=== PATIENT | female | born 1960 | race Caucasian/White ===

== ENCOUNTER → 2017-08-25 | Outpatient (CLI) | payer BC ==
[2016-11-26 11:13] VITALS: BP 123/112
--- NOTE | 2017-08-25 11:46 | MRI ---
MRI SPINE LUMBAR WITHOUT CONTRAST CLINICAL HISTORY: 57-year-old female with low back pain and bilateral radicular symptoms. COMPARISON: None. Technique: Multiplanar, multisequence MRI images of the lumbar spine were obtained without the admin istration of contrast. FINDINGS: The most caudad, fully-formed intervertebral disc will be labeled L5-S1 for the purpose of this dictation. There is normal lumbar lordosis. Subtle degenerative anterolisthesis L4 on L5. There is preservation of vertebral body and disc space height. Vertebral marrow and intervertebral disc sig nal are normal. Cord signal is normal. The conus medullaris is normal in signal characteristics and m orphology and terminates at the L2 level. T11-T12: No central canal or neural foraminal stenosis. T12-L1: No central canal or neural foraminal stenosis. L1-L2: Symmetric disc bulge with moderate facet hypertrophy without central canal or neural foraminal stenosis. L2-L3: Large symmetric disc bulge with mild facet hypertrophy and thickened flavum without central ca nal or neural foraminal stenosis L3-L4: Large symmetric disc bulge with moderate facet hypertrophy with thickened flavum. No central c anal or neural foraminal stenosis. L4-L5: Large symmetric disc bulge with severe facet hypertrophy with fluid within the facet joints an d subcentimeter subchondral cysts on the left. Central canal assumes a triangular configuration secon steve to degenerative change with AP diameter measuring 9.7 mm. Ejgt-[id number] bilateral neural fora jaime stenosis with engagement of the ventral dorsal aspects of the exiting L4 nerve roots bilaterall y with mild flattening. L5-S1: Large symmetric disc bulge with moderate facet hypertrophy and thickened ligamentum flavum. No central canal or neural foraminal stenosis. Paraspinous soft tissues are unremarkable. IMPRESSION: 1. Multilevel disc degeneration and spondyloarthropathy, most severe at L4-L5 with engagement of the exiting L4 nerve roots bilaterally. 2. See level by level descriptions above. Reported By:
== END ==
LOC: RAD 09:13
PROVIDERS: ATTEND Nurse Practitioner
DX: M54.5 Low back pain (principal); M54.16 Radiculopathy, lumbar region
CPT/HCPCS: 72148

== ENCOUNTER → 2018-03-13 | Outpatient (CLI) | payer BC ==
[2016-11-26 11:13] VITALS: BP 123/112
== END ==
LOC: RAD 09:46
PROVIDERS: ATTEND Internal Medicine
DX: Z12.31 Encounter for screening mammogram for malignant neoplasm of breast (principal)
CPT/HCPCS: 77067

== ENCOUNTER 2019-03-15 09:23 | Observation (INO) ==
--- NOTE | 2019-03-15 09:55 | DR.SOBA ---
HPI Time Seen Time Seen by Provider: 03/15/19 09:48 Primary Care Physician Primary Care Physician: NATALIA GARCIA HPI Comment HPI Comment: Patient reports that she had a transfusion for osteoporosis on yesterday and now she has generalized bone pain. The pain is sharp 8/10. She denies nausea or vomiting. Medication transfused is zoledronic acid. She admits to Dyspnea but denies rash, hives, itching swelling or blister formation. She denies wheezing but admits to chest tightness. Complaints Chief Complaint Doctors Comments: Bone pain Chief Complaint:: PT C/O BACK PAIN, RT RIB PAIN AND SOB. PT STATES SHE HAD AN INFUSION FOR HER OSTEOPOROSIS YESTERDAY IN THE HOSPITAL IN [facility]. PT STATES SHE IS HAVING SHARP PAINS IN HER BACK AND HAVING PRESSURE TYPE FEELING IN HER CHEST. Source History Provided: Patient Mode of Arrival Mode of Arrival: Ambulatory Timing Onset of Chief Complaint: 03/15/19 PMH PMH Past Medical History: Yes Past Medical History: COPD and Hypertension Past Medical History Comment: OSTEOPEROSIS Past Surgical History: Yes Surgical History: Hysterectomy Family History History of Family Medical Conditions: Yes Family Medical History: Diabetes Mellitus, Cancer, Coronary Artery Disease and Hypertension Social History Does any household member use tobacco: No Alcohol Use: Heavy Do you use any recreational Drugs:: No Lives With: Alone Lives Where: Home infectious screening In the last 2 months have you had wt loss of >10#?: NO Have you had fever, night sweats or hemotysis?: No Have you traveled outside the country in the last 6 months?: No Isolation: Standard ROS Review of Systems Constitutional: Weakness Eyes: No Symptoms Reported ENTM: No Symptoms Reported Respiratoy: No Symptoms Reported Cardiovascular: No Symptoms Reported Gastrointestinal/Abdominal: No Symptoms Reported Neurological: No Symptoms Reported Musculoskeletal: See HPI Integumentary: No Symptoms Reported Hematologic/Lymphatic: No Symptoms Reported Endocrine: No Symptoms Reported All Other Systems: Reviewed and Negative PE Vital Signs Vitals: Temperature 101.1 F Pulse Rate [Left Radial] 101 Pulse Rate 102 Respiratory Rate 17 Blood Pressure [Right Arm] 134/81 Blood Pressure [Left Arm] 110/69 Blood Pressure 110/69 O2 Sat by Pulse Oximetry 97 General Limitations: No Limitations and Physical Limitation (secondary to bone pain) General Appearance: Alert and In No Apparent Distress Head Head Exam: Normal Inspection, Atraumatic and Normocephalic Eyes Eye exam: Normal Appearance, PERRL and EOMI ENT ENT Exam: Normal Exam, Normal Oropharynx and Normal External Ear Exam Neck Neck Exam: Normal Inspection and Full ROM Chest Chest Inspection: Normal Inspection and Symmetric Chest Wall Rise Respiratory Respiratory Exam: Normal Lung Sounds Bilat Respiratory Exam: Bilateral: Clear to Auscultation Cardiovascular Cardiovascular Exam: Regular Rate and Normal Rhythm Abdominal Exam Abdominal Exam: Normal Inspection, Normal Bowel Sounds and Soft Extremities Extremities Exam: Normal Inspection and Full ROM Back Back Exam: Normal Inspection Neurologic Neurological Exam: Alert, Oriented X3 and CN II-XII Intact Psychiatric Psychiatric Exam: Normal Affect and Normal Mood Skin Skin Exam: Warm, Dry and Intact ROR Labs Reviewed Laboratory Results Reviewed?: Yes Other Results Comments: Chest: COPD without abnormality XRAY XRAY Interpreted by: Radiologist
--- NOTE | 2019-03-15 10:10 | RAD ---
HISTORY: Back and right rib pain and shortness of breath. Patient states she had an infusion for osteoporosis yesterday in the hospital in [place]. Patient states she is having sharp pains in her back and having pressure type feeling in her chest. Study: Single-view chest Comparison: 11/26/2016. Findings: Trachea is midline. Heart size is normal. There is hyperinflation of the lungs with stable increased interstitial markings bilaterally. Findings are compatible with COPD. No acute osseous changes are seen. IMPRESSION: COPD without acute abnormality. Reported By:
[2019-03-15 10:22] LABS: BASOPHILS % (AUTO) 0.2 % (0.2-1.0); EOSINOPHILS # (AUTO) 0.1 x10^3/uL (0.0-0.2); EOSINOPHILS % (AUTO) 0.8 % (0.9-2.9); HEMOGLOBIN 12.4 g/dL (12.0-16.0); LYMPHOCYTES # (AUTO) 0.4 X10^3/uL (1.3-2.9); LYMPHOCYTES % (AUTO) 4.1 % (21.0-51.0); MEAN CORPUSCULAR HEMOGLOBIN 30.9 pg (27.0-34.0); MEAN CORPUSCULAR HGB CONC 33.5 g/dL (33.0-35.0); MEAN CORPUSCULAR VOLUME 92.3 fL (80.0-100.0); MEAN PLATELET VOLUME 7.3 fL (7.4-11.0); MONOCYTES # (AUTO) 0.3 x10^3/uL (0.3-0.8); MONOCYTES % (AUTO) 3.2 % (0.0-13.0); NEUTROPHILS # (AUTO) 9.3 x10^3/uL (2.2-4.8); NEUTROPHILS % (AUTO) 91.7 % (42.0-75.0); PLATELET COUNT 250 X10^3/uL (150.0-450.0); RED BLOOD COUNT 4.01 X10^6/uL (3.5-5.4); WHITE BLOOD COUNT 10.1 X10^3/uL (3.6-10.0)
[2019-03-15 10:37] LABS: BLOOD UREA NITROGEN 11 mg/dL (7-18); CALCIUM 8.9 mg/dL (8.5-10.1); CARBON DIOXIDE 30.4 mmol/L (21-32); CHLORIDE 102 mmol/L (98-107); CREATININE 0.72 mg/dL (0.55-1.02); SODIUM 141 mmol/L (136-145); TROPONIN I < 0.02 ng/mL (0-1.5); eGFR NON BLACK RACES > 60 (>60)
[2019-03-15 10:41] LABS: ALANINE AMINOTRANSFERASE 37 Units/L (12-78); ALBUMIN 3.6 g/dL (3.4-5.0); ALKALINE PHOSPHATASE 70 Units/L (46-116); ASPARTATE AMINO TRANSFERASE 16 Units/L (15-37); CKMB % 2.3 % (<4); CREATINE KINASE 44 Units/L (26-192); CREATINE KINASE MB < 1.0 ng/mL (0-4.0); MAGNESIUM 1.9 mg/dL (1.7-2.9); TOTAL PROTEIN 6.9 g/dL (6.4-8.2)
[2019-03-15] MEDS ORDERED: TYLENOL 325 MG TAB PO ONE (10:50)
[2019-03-15] MEDS ORDERED: MORPHINE SULFATE INJ 4 MG IVP ONE (11:01)
[2019-03-15 11:02] LABS: BAND NEUTROPHILS % 3 % (0-10)
[2019-03-15] MEDS ORDERED: MORPHINE SULFATE INJ 4 MG ONE ×2 (11:04→16:38)
[2019-03-15 11:05] LABS: PLATELET MORPHOLOGY COMMENT NORMAL (NORMAL)
[2019-03-15 12:34] LABS: APPEARANCE,URINE CLEAR (CLEAR); BILIRUBIN,URINE NEGATIVE (NEGATIVE); BLOOD/HEMOGLOBIN,URINE NEGATIVE (NEGATIVE); COLOR,URINE YELLOW (YELLOW); GLUCOSE, URINE NEGATIVE (NEGATIVE); KETONES,URINE NEGATIVE (NEGATIVE); LEUKOCYTE ESTERASE ,URINE NEGATIVE (NEGATIVE); NITRITES,URINE NEGATIVE (NEGATIVE); PROTEIN,URINE NEGATIVE (NEGATIVE); UROBILINOGEN,URINE NORMAL (NORMAL)
--- NOTE | 2019-03-15 13:07 | DR.SOBA ---
HPI Time Seen Time Seen by Provider: 03/15/19 09:48 Primary Care Physician Primary Care Physician: NATALIA GARCIA Complaints Chief Complaint:: PT C/O BACK PAIN, RT RIB PAIN AND SOB. PT STATES SHE HAD AN INFUSION FOR HER OSTEOPOROSIS YESTERDAY IN THE HOSPITAL IN [facility]. PT STATES SHE IS HAVING SHARP PAINS IN HER BACK AND HAVING PRESSURE TYPE FEELING IN HER CHEST. Source History Provided: Patient Mode of Arrival Mode of Arrival: Ambulatory Timing Onset of Chief Complaint: 03/15/19 PMH PMH Past Medical History: Yes Past Medical History: COPD and Hypertension Past Medical History Comment: OSTEOPEROSIS Past Surgical History: Yes Surgical History: Hysterectomy Family History History of Family Medical Conditions: Yes Family Medical History: Diabetes Mellitus, Cancer, Coronary Artery Disease and Hypertension Social History Does any household member use tobacco: No Alcohol Use: Heavy Do you use any recreational Drugs:: No Lives With: Alone Lives Where: Home infectious screening In the last 2 months have you had wt loss of >10#?: NO Have you had fever, night sweats or hemotysis?: No Have you traveled outside the country in the last 6 months?: No Isolation: Standard ROS Review of Systems Constitutional: No Symptoms Reported Eyes: No Symptoms Reported ENTM: No Symptoms Reported Respiratoy: No Symptoms Reported Gastrointestinal/Abdominal: No Symptoms Reported Genitourinary: No Symptoms Reported Neurological: No Symptoms Reported Musculoskeletal: See HPI and Back Pain Integumentary: No Symptoms Reported Endocrine: No Symptoms Reported Psychiatric: No Symptoms Reported All Other Systems: Reviewed and Negative PE Vital Signs Vitals: Temperature 97.9 F Pulse Rate [Left Radial] 82 Pulse Rate 71 Respiratory Rate 16 Blood Pressure [Right Arm] 134/81 Blood Pressure [Left Arm] 123/72 Blood Pressure 110/69 O2 Sat by Pulse Oximetry 95 General Limitations: No Limitations General Appearance: Alert and In No Apparent Distress Head Head Exam: Normal Inspection, Atraumatic and Normocephalic Eyes Eye exam: Normal Appearance and PERRL ENT ENT Exam: Normal Exam and Normal Oropharynx Neck Neck Exam: Normal Inspection and Full ROM Respiratory Respiratory Exam: Normal Lung Sounds Bilat and Accessory Muscle Use Respiratory Exam: Bilateral: Clear to Auscultation Cardiovascular Cardiovascular Exam: Regular Rate and Normal Rhythm Abdominal Exam Abdominal Exam: Normal Inspection, Normal Bowel Sounds and Soft Extremities Extremities Exam: Normal Inspection and Full ROM Back Back Exam: Tenderness (lower back) Neurologic Neurological Exam: Alert and Oriented X3 Psychiatric Psychiatric Exam: Normal Affect and Normal Mood COURSE Consultation Called: 13:30 Consultation Comments: Dr. Jonnie Bello authorized admission ROR Labs Reviewed Laboratory Results Reviewed?: Yes Result Diagrams: 03/15/19 10:00 03/15/19 10:00 Laboratory: WBC 10.1 X10^3/uL (3.6-10.0) H 03/15/19 10:00 RBC 4.01 X10^6/uL (3.5-5.4) 03/15/19 10:00 Hgb 12.4 g/dL (12.0-16.0) 03/15/19 10:00 Hct 37.0 % (36.0-47.0) 03/15/19 10:00 MCV 92.3 fL (80.0-100.0) 03/15/19 10:00 MCH 30.9 pg (27.0-34.0) 03/15/19 10:00 MCHC 33.5 g/dL (33.0-35.0) 03/15/19 10:00 RDW 13.0 % (11.6-16.5) 03/15/19 10:00 Plt Count 250 X10^3/uL (150.0-450.0) 03/15/19 10:00 Plt Count Comment Adequate (ADEQUATE) 03/15/19 10:00 MPV 7.3 fL (7.4-11.0) L 03/15/19 10:00 Neut % (Auto) 91.7 % (42.0-75.0) H 03/15/19 10:00 Lymph % (Auto) 4.1 % (21.0-51.0) L 03/15/19 10:00 [place] % (Auto) 3.2 % (0.0-13.0) 03/15/19 10:00 Eos % (Auto) 0.8 % (0.9-2.9) L 03/15/19 10:00 Baso % (Auto) 0.2 % (0.2-1.0) 03/15/19 10:00 Neut # (Auto) 9.3 x10^3/uL (2.2-4.8) H 03/15/19 10:00 Lymph # (Auto) 0.4 X10^3/uL (1.3-2.9) L 03/15/19 10:00 [place] # (Auto) 0.3 x10^3/uL (0.3-0.8) 03/15/19 10:00 Eos # (Auto) 0.1 x10^3/uL (0.0-0.2) 03/15/19 10:00 Baso # (Auto) 0.0 X10^3/uL (0.0-0.1) 03/15/19 10:00 Absolute Nucleated RBC 0.0 /100WBC 03/15/19 10:00 Total Counted 100 03/15/19 10:00 Neutrophils % (Manual) 88 % (39-76) H 03/15/19 10:00 Band Neutrophils % 3 % (0-10) 03/15/19 10:00 Lymphocytes % (Manual) 8 % (13-43) L 03/15/19 10:00 Monocytes % (Manual) 1 % (4-9) L 03/15/19 10:00 Plt Morphology Comment Normal (NORMAL) 03/15/19 10:00 RBC Morphology Normal (NORMAL) 03/15/19 10:00 INR Target Range - 03/15/19 10:00 INR 0.97 (0.8-1.3) 03/15/19 10:00 APTT 24.2 SECONDS (22.9-36.5) 03/15/19 10:00 PTT Comment - 03/15/19 10:00 D-Dimer 259 ng/mL (0-400) 03/15/19 10:00 Sodium 141 mmol/L (136-145) 03/15/19 10:00 Corrected Sodium TNP 03/15/19 10:00 Potassium 4.2 mmol/L (3.5-5.1) 03/15/19 10:00 Chloride 102 mmol/L (98-107) 03/15/19 10:00 Carbon Dioxide 30.4 mmol/L (21-32) 03/15/19 10:00 BUN 11 mg/dL (7-18) 03/15/19 10:00 Creatinine 0.72 mg/dL (0.55-1.02) 03/15/19 10:00 Est GFR (MDRD) Af Amer > 60 (>60) 03/15/19 10:00 Est GFR (MDRD) Non-Af > 60 (>60) 03/15/19 10:00 Glucose 108 mg/dL (65-99) H 03/15/19 10:00 Calcium 8.9 mg/dL (8.5-10.1) 03/15/19 10:00 Corrected Calcium TNP 03/15/19 10:00 Magnesium 1.9 mg/dL (1.7-2.9) 03/15/19 10:00 Total Bilirubin 0.30 mg/dL (0.2-1.0) 03/15/19 10:00 AST 16 Units/L (15-37) 03/15/19 10:00 ALT 37 Units/L (12-78) 03/15/19 10:00 Alkaline Phosphatase 70 Units/L (46-116) 03/15/19 10:00 Creatine Kinase 44 Units/L (26-192) 03/15/19 10:00 CK-MB (CK-2) < 1.0 ng/mL (0-4.0) 03/15/19 10:00 CK/CKMB % Calc 2.3 % (<4) 03/15/19 10:00 Troponin I < 0.02 ng/mL (0-1.5) 03/15/19 10:00 Total Protein 6.9 g/dL (6.4-8.2) 03/15/19 10:00 Albumin 3.6 g/dL (3.4-5.0) 03/15/19 10:00 Globulin 3.3 g/dL (2.5-4.5) 03/15/19 10:00 Albumin/Globulin Ratio 1.1 Ratio (1.1-2.1) 03/15/19 10:00 Specimen Type Catherized urine 03/15/19 18:04 Urine Color Yellow (YELLOW) 03/15/19 18:04 Urine Appearance Clear (CLEAR) 03/15/19 18:04 Urine pH 7.0 (5.0 - 8.0) 03/15/19 18:04 Ur Specific [place] 1.015 (1.000-1.030) 03/15/19 18:04 Urine Protein Negative (NEGATIVE) 03/15/19 18:04 Urine Glucose (UA) Negative (NEGATIVE) 03/15/19 18:04 Urine Ketones 1+ (NEGATIVE) 03/15/19 18:04 Urine Occult Blood 1+ (NEGATIVE) 03/15/19 18:04 Urine Nitrite Negative (NEGATIVE) 03/15/19 18:04 Urine Bilirubin Negative (NEGATIVE) 03/15/19 18:04 Urine Urobilinogen Normal (NORMAL) 03/15/19 18:04 Ur Leukocyte Esterase Negative (NEGATIVE) 03/15/19 18:04 Urine RBC 0-2 /HPF (NONE SEEN) 03/15/19 18:04 Urine WBC 0-2 /HPF (NONE SEEN) 03/15/19 18:04 Ur Squamous Epith Cells Rare /HPF (NEGATIVE) 03/15/19 18:04 Urine Bacteria Negative /HPF (NEGATIVE) 03/15/19 18:04 Ur Culture Indicated? No/not indicated 03/15/19 18:04 Other Results Comments: Chest: COPD without acute abnormality XRAY XRAY Interpreted by: Radiologist ADDITIONAL NOTES Additional Notes Additional Notes: Patient admitted for generalized pain. Osteoporesis
--- NOTE | 2019-03-15 14:31 | CT ---
HISTORY: Mid back pain Study: CT thoracic spine without contrast Comparison: None Technique: Axial noncontrast images with coronal and sagittal reformats. Dose reduction procedures were used with mA/kv adjusted for body size. Findings: The bones are osteopenic. The alignment is normal. The vertebral bodies are of average height. Diffuse anterior spondylosis is present in the mid thoracic spine. The disc heights are preserved. The pedicles, spinous processes, and posterior elements are intact as are the visualized posterior ribs. The neural foramina are patent. The joints appear within normal limits. CT is not adequate for the evaluation of thoracic disc disease and if thoracic disc disease is a consideration MRI would be required for further evaluation. IMPRESSION: No acute abnormality identified Osteopenia Diffuse anterior spondylosis midthoracic spine Reported By:
--- NOTE | 2019-03-15 14:37 | CT ---
HISTORY: Low back pain Study: CT lumbar spine without contrast Comparison: None Technique: Axial noncontrast images with coronal and sagittal reformats. Dose reduction procedures were used with mA/kv adjusted for body size. Findings: The bones are osteopenic. The alignment is normal with the exception of minimal anterolisthesis L4 on L5. The vertebral bodies are of average height. No compression fractures are identified. The pedicles, spinous processes, and posterior elements are intact as are the visualized portions of the sacrum and the SI joints. The disc levels are evaluated as follows: L1-2 level: No evidence for compressive disc disease. The neural foramina are patent. The joints are normal. L2-3 level: No evidence for compressive disc disease. The neural foramina are patent. The joints are normal. L3-4 level: Concentric disc bulging effaces the thecal sac and contributes along with mild pedicular shortening to lateral recess narrowing bilaterally. Mild facet arthropathy is present bilaterally. L4-5 level: Broad-based disc protrusion contributes along with pedicular shortening, ligamentous hypertrophy, and severe facet arthropathy to a severe canal stenosis with marked lateral recess and foraminal narrowing bilaterally left worse than right. L5-S1 level: Broad-based disc protrusion effaces the thecal sac and contributes along with pedicular shortening and bilateral facet arthropathy to significant lateral recess and foraminal narrowing bilaterally worse on the right than the left. IMPRESSION: As above Reported By:
[2019-03-15] MEDS ORDERED: MORPHINE SULFATE INJ 4 MG IVP PRN ×2 (15:33→21:18)
[2019-03-15 16:10] VITALS: BMI 27.5
[2019-03-15] MEDS ORDERED: ZOFRAN INJ 4 MG VIAL IVP PRN ×2 (16:28→17:47)
[2019-03-15] MEDS ORDERED: MOTRIN TAB 600 MG PO PRN (16:29)
[2019-03-15] MEDS ORDERED: ZOFRAN INJ 4 MG VIAL ONE (16:38)
[2019-03-15] MEDS ORDERED: MOTRIN TAB 600 MG PO ONE (16:38)
[2019-03-15] MEDS ORDERED: SALINE 3% 15 ML NEB TX NEB ONE (16:48)
[2019-03-15] MEDS ORDERED: MORPHINE SULFATE INJ 2 MG INJ IVP PRN (17:46)
[2019-03-15] MEDS ORDERED: DUONEB 0.5 MG/3 MG NEB PRN (17:52)
[2019-03-15] MEDS: NS 1000 ML 1,000 ML IV SCH (18:24)
[2019-03-15] MEDS: PROTONIX TAB 40 MG PO SCH (18:24)
[2019-03-15 18:57] LABS: BILIRUBIN,URINE NEGATIVE (NEGATIVE); BLOOD/HEMOGLOBIN,URINE 1+ (NEGATIVE); GLUCOSE, URINE NEGATIVE (NEGATIVE); KETONES,URINE 1+ (NEGATIVE); LEUKOCYTE ESTERASE ,URINE NEGATIVE (NEGATIVE); NITRITES,URINE NEGATIVE (NEGATIVE); PROTEIN,URINE NEGATIVE (NEGATIVE); UROBILINOGEN,URINE NORMAL (NORMAL)
[2019-03-15 19:17] LABS: APPEARANCE,URINE CLEAR (CLEAR); BACTERIA,URINE NEGATIVE /HPF (NEGATIVE); COLOR,URINE YELLOW (YELLOW); RBC,URINE 0-2 /HPF (NONE SEEN); SQUAMOUS EPITHELIAL CELL,UR RARE /HPF (NEGATIVE)
[2019-03-15] MEDS: PULMICORT NEB TX 0.5 MG NEB SCH (20:28)
[2019-03-15] MEDS: DUONEB 0.5 MG/3 MG NEB SCH (20:28)
[2019-03-16] MEDS: MOTRIN TAB 600 MG PO PRN ×3 (02:28→20:16)
[2019-03-16 06:01] LABS: BASOPHILS % (AUTO) 0.7 % (0.2-1.0); EOSINOPHILS # (AUTO) 0.1 x10^3/uL (0.0-0.2); EOSINOPHILS % (AUTO) 2.9 % (0.9-2.9); HEMATOCRIT 30.8 % (36.0-47.0); HEMOGLOBIN 10.5 g/dL (12.0-16.0); LYMPHOCYTES # (AUTO) 0.6 X10^3/uL (1.3-2.9); LYMPHOCYTES % (AUTO) 13.7 % (21.0-51.0); MEAN CORPUSCULAR HEMOGLOBIN 31.7 pg (27.0-34.0); MEAN CORPUSCULAR HGB CONC 34.1 g/dL (33.0-35.0); MEAN PLATELET VOLUME 7.3 fL (7.4-11.0); MONOCYTES # (AUTO) 0.3 x10^3/uL (0.3-0.8); NEUTROPHILS # (AUTO) 3.2 x10^3/uL (2.2-4.8); NEUTROPHILS % (AUTO) 74.7 % (42.0-75.0); PLATELET COUNT 179 X10^3/uL (150.0-450.0); RED BLOOD COUNT 3.31 X10^6/uL (3.5-5.4); RED CELL DISTRIBUTION WIDTH 13.1 % (11.6-16.5); WHITE BLOOD COUNT 4.3 X10^3/uL (3.6-10.0)
[2019-03-16 06:21] LABS: ALANINE AMINOTRANSFERASE 32 Units/L (12-78); ALBUMIN 2.9 g/dL (3.4-5.0); ALKALINE PHOSPHATASE 57 Units/L (46-116); ASPARTATE AMINO TRANSFERASE 18 Units/L (15-37); BLOOD UREA NITROGEN 9 mg/dL (7-18); CALCIUM 7.7 mg/dL (8.5-10.1); CARBON DIOXIDE 29.3 mmol/L (21-32); CHLORIDE 103 mmol/L (98-107); COR CA(FOR HYPOALB) 8.6 mg/dL (8.5-10.1); CREATININE 0.56 mg/dL (0.55-1.02); SODIUM 139 mmol/L (136-145); TOTAL PROTEIN 5.9 g/dL (6.4-8.2); eGFR NON BLACK RACES > 60 (>60)
--- NOTE | 2019-03-16 06:24 | RAD ---
AP chest Indication: Chest pain. Comparison: 03/15/2019 Findings: The trachea is midline. Heart size is normal. The lungs are mildly hyperexpanded without focal airspace opacity. No pleural effusion or pneumothorax. No acute osseous abnormality. Impression: COPD without acute cardiopulmonary abnormality. Reported By:
[2019-03-16] MEDS: NS 1000 ML 1,000 ML IV SCH ×2 (07:32→17:22)
[2019-03-16] MEDS ORDERED: PATIENT'S HOME MEDICATION (Fluticasone-Umeclidin-Vilanter [Trelegy Ellipta] 1 INH) IN SCH (08:30)
[2019-03-16] MEDS: PROTONIX TAB 40 MG PO SCH (08:42)
--- NOTE | 2019-03-16 08:59 | DR.H&P ---
H&P - History & Physical for Day of: H&P Date: 03/15/19 - Chief Complaint Chief Complaint: COUGH, SOB, BACK PAIN, RIB PAIN - History of Present Illness History of Present Illness: IS A 58 YEAR OLD PATIENT OF OURS WHO PRESENTED TO THE ER WITH COMPLAINTS OF BACK PAIN, RIB PAIN, AND SHORTNESS OF BREATH. SHE REPORTS HAVING AN INFUSION OF ZOLEDRONIC ACID FOR HER OSTEOPOROSIS YESTERDAY IN [place]. SHE STATES THAT SHE IS HAVING SHARP PAIN IN THE BACK AND PRESSURE IN THE CHEST TODAY. SHE DOES REPORT A COUGH, BUT DENIES NAUSEA OR VOMITING. ON ARRIVAL, VITALS WERE 101.0-102-22-98%-110/69. LABS WERE OBTAINED. ABNORMAL LAB VALUES INCLUDE THE FOLLOWING: WBC 10.1, GLUCOSE 108. URINALYSIS UNREMARKABLE. BLOOD AND SPUTUM CULTURES OBTAINED. EKG OBTAINED AND REVEALED: SINUS RHYTHM WITH HR 96. CHEST XRAY OBTAINED AND REVEALED: COPD WITHOUT ACUTE ABNORMALITY. LUMBAR SPINE CT OBTAINED AND REVEALED: L3-4 level: Concentric disc bulging effaces the thecal sac and contributes along with mild pedicular shortening to lateral recess narrowing bilaterally. Mild facet arthropathy is present bilaterally. L4-5 level: Broad-based disc protrusion contributes along with pedicular shortening, ligamentous hypertrophy, and severe facet arthropathy to a severe canal stenosis with marked lateral recess and foraminal narrowing bilaterally left worse than right. L5-S1 level: Broad-based disc protrusion effaces the thecal sac and contributes along with pedicular shortening and bilateral facet arthropathy to significant lateral recess and foraminal narrowing bilaterally worse on the right than the left. THORACIC SPINE CT REVEALED: No acute abnormality identified. Osteopenia. Diffuse anterior spondylosis midthoracic spine. SHE WAS GIVEN MORPHINE 4MG IV X 2 DOSES, ZOFRAN 4MG IV X 1 DOSE, AND MOTRIN 60MG PO X 1 DOSE IN THE ER. SHE WAS ADMITTED FOR FURTHER EVALUATION AND TREATMENT OF INTRACTABLE PAIN AND COPD EXACERBATION WITH ACUTE BRONCHITIS. SHE WAS STARTED ON RESPIRATORY TX, SUPPLEMENTAL OXYGEN, NORMAL SALINE AT 75ML/HR, MORPHINE 4MG IV Q6H PRN, AND ZOFRAN 4MG IV Q8H PRN. WE PLAN TO FOLLOW UP WITH AM LABS AND CHEST XRAY AND CONTINUE TO MONITOR. - Past Medical History Past Medical History: Hypertension, COPD - Past Surgical History Surgical History: Hysterectomy - Family History Family Medical History: Diabetes Mellitus, Cancer, Coronary Artery Disease, Hypertension - Social History Does patient currently use any type of tobacco product: No Have you used tobacco products in the last 12 months: No Type of Tobacco Use: None Does any household member use tobacco: No Alcohol Use: Heavy Drug Use: None - Medications Home Medications: No Known Allergies [NKA] Allergy (Verified 03/15/19 09:32) CONTINUE taking the following medications azithromycin 250 mg PO DAILY 03/15/19 [History] [id number] [Trelegy Ellipta] 1 inh INHALATION QDAY 03/15/19 [History] levothyroxine 50 mcg PO DAILY 03/15/19 [History] montelukast 10 mg PO DAILY 03/15/19 [History] sertraline 100 mg PO DAILY 03/15/19 [History] simvastatin 20 mg PO HS 03/15/19 [History] - Review of Systems Constitutional: Fever, Weakness Eyes: No Symptoms Reported ENT: No Symptoms Reported Respiratory: See HPI, Cough, Shortness of Breath Cardiovascular: No Symptoms Reported Gastrointestinal: No Symptoms Reported Genitourinary: No Symptoms Reported Musculoskeletal: See HPI, Back Pain Skin: No Symptoms Reported Neurological: Weakness - Physical Exam Vital Signs: Temperature 97.5 F Pulse Rate [Left Radial] 70 Pulse Rate 71 Respiratory Rate 22 Blood Pressure [Right Arm] 134/81 Blood Pressure [Left Arm] 99/64 Blood Pressure 110/69 O2 Sat by Pulse Oximetry 98 Oriented: Normal Eyes: Normal Ear: Normal Nose: Normal Throat: Normal Respiratory: Diminished Throughout Cardiovascular: Tachycardia. negative: S3, S4, Murmur : Normal Auscultation: Bowel Sounds: Normal Palpation: Normal Tenderness: Normal Skin: Normal Musculoskeletal: Back:Thoracic, Back:Lumbar, Tender Psychiatric: Normal Mood Description: Calm Affect: Normal Speech Pattern: Clear - Assessment/Plan (1) COPD with acute bronchitis Status: Acute Plan: IV ANTIBIOTICS, RESPIRATORY TX, SUPPLEMENTAL OXYGEN, CONTINUE TO MONTIOR (2) Intractable back pain Status: Acute Plan: MORPHINE 4MG IV Q6H PRN PAIN, CONTINUE TO MONITOR - Allergies Allergies/Adverse Reactions: Allergies Allergy/AdvReac Type Severity Reaction Status Date / Time No Known Allergies [NKA] Allergy Verified 03/15/19 09:32
[2019-03-16] MEDS ORDERED: PHARMACY CONSULT - DOSE _____ XX SCH (09:00)
[2019-03-16] MEDS: PULMICORT NEB TX 0.5 MG NEB SCH ×2 (09:27→21:05)
[2019-03-16] MEDS: DUONEB 0.5 MG/3 MG NEB SCH ×2 (09:27→21:05)
[2019-03-16] MEDS ORDERED: SINGULAIR TAB 10 MG ONE (10:00)
[2019-03-16] MEDS ORDERED: SYNTHROID 100 mcg TAB ONE (10:00)
[2019-03-16] MEDS ORDERED: ZOLOFT ONE (10:00)
[2019-03-16] MEDS ORDERED: ASPIRIN EC 81 MG PO ONE (10:00)
[2019-03-16] MEDS ORDERED: ROCEPHIN VIAL 1 GRAM ONE (10:01)
[2019-03-16] MEDS: ROCEPHIN VIAL 1 GRAM IVP SCH (10:13)
[2019-03-16] MEDS: ASPIRIN 81 MG CHEWTAB PO SCH (10:13)
[2019-03-16] MEDS: SINGULAIR TAB 10 MG PO SCH (10:15)
[2019-03-16] MEDS: SYNTHROID 50 mcg TAB PO SCH (10:15)
[2019-03-16] MEDS: ZOLOFT PO SCH (10:18)
[2019-03-16] MEDS ORDERED: ZOCOR TAB 20 MG PO SCH (21:00)
[2019-03-17] MEDS: NS 1000 ML 1,000 ML IV SCH ×2 (01:33→09:29)
[2019-03-17 05:27] LABS: EOSINOPHILS # (AUTO) 0.1 x10^3/uL (0.0-0.2); EOSINOPHILS % (AUTO) 3.9 % (0.9-2.9); HEMATOCRIT 28.8 % (36.0-47.0); HEMOGLOBIN 9.8 g/dL (12.0-16.0); LYMPHOCYTES # (AUTO) 1.1 X10^3/uL (1.3-2.9); LYMPHOCYTES % (AUTO) 30.7 % (21.0-51.0); MEAN CORPUSCULAR HEMOGLOBIN 31.8 pg (27.0-34.0); MEAN CORPUSCULAR HGB CONC 33.9 g/dL (33.0-35.0); MEAN CORPUSCULAR VOLUME 93.8 fL (80.0-100.0); MEAN PLATELET VOLUME 8.1 fL (7.4-11.0); MONOCYTES # (AUTO) 0.4 x10^3/uL (0.3-0.8); MONOCYTES % (AUTO) 10.8 % (0.0-13.0); NEUTROPHILS # (AUTO) 1.8 x10^3/uL (2.2-4.8); NEUTROPHILS % (AUTO) 53.6 % (42.0-75.0); PLATELET COUNT 179 X10^3/uL (150.0-450.0); RED BLOOD COUNT 3.07 X10^6/uL (3.5-5.4); RED CELL DISTRIBUTION WIDTH 13.1 % (11.6-16.5); WHITE BLOOD COUNT 3.4 X10^3/uL (3.6-10.0)
[2019-03-17 05:48] LABS: ALANINE AMINOTRANSFERASE 35 Units/L (12-78); ALBUMIN 2.6 g/dL (3.4-5.0); ALKALINE PHOSPHATASE 61 Units/L (46-116); ASPARTATE AMINO TRANSFERASE 20 Units/L (15-37); BLOOD UREA NITROGEN 8 mg/dL (7-18); CALCIUM 7.6 mg/dL (8.5-10.1); CHLORIDE 109 mmol/L (98-107); COR CA(FOR HYPOALB) 8.7 mg/dL (8.5-10.1); CREATININE 0.59 mg/dL (0.55-1.02); SODIUM 144 mmol/L (136-145); TOTAL PROTEIN 5.5 g/dL (6.4-8.2); eGFR NON BLACK RACES > 60 (>60)
[2019-03-17] MEDS: PULMICORT NEB TX 0.5 MG NEB SCH (09:02)
[2019-03-17] MEDS: DUONEB 0.5 MG/3 MG NEB SCH (09:02)
[2019-03-17] MEDS ORDERED: ZOLOFT ONE (09:11)
[2019-03-17 09:23] LABS: CREATINE KINASE 42 Units/L (26-192); CREATINE KINASE MB < 1.0 ng/mL (0-4.0); TROPONIN I < 0.02 ng/mL (0-1.5)
[2019-03-17] MEDS: ROCEPHIN VIAL 1 GRAM IVP SCH (09:28)
[2019-03-17] MEDS: ZOLOFT PO SCH (09:28)
[2019-03-17] MEDS: SYNTHROID 50 mcg TAB PO SCH (09:29)
[2019-03-17] MEDS: SINGULAIR TAB 10 MG PO SCH (09:29)
[2019-03-17] MEDS: ASPIRIN 81 MG CHEWTAB PO SCH (09:29)
[2019-03-17] MEDS: PROTONIX TAB 40 MG PO SCH (09:29)
[2019-03-17] MEDS: MOTRIN TAB 600 MG PO PRN (09:36)
[2019-03-17 10:11] LABS: CKMB % 2.4 % (<4)
[2019-03-17 10:43] VITALS: BP 144/67
--- NOTE | 2019-03-17 17:42 | PCM.PROG ---
Progress Note - Progress Note for Day of Date of Exam: 03/16/19 - Subjective Subjective: WAS ADMITTED FOR INTRACTABLE PAIN AND COPD WITH ACUTE EXACERBATION. WE SUSPECT THAT SOME SYMPTOMS COULD ALSO BE RELATED TO AN INFUSION OF ZOLENDRONIC ACID THAT SHE HAD TWO DAYS AGO FOR OSTOPOROSIS. TODAY, SHE IS ALERT AND ORIENTED, LYING IN BED ON MORNING ROUNDS. SHE CONTINUES WITH BACK PAIN AND SHORTNESS OF BREATH, BUT REPORTS SLIGHT IMPROVEMENT SINCE YESTERDAY. ON EXAMINATION, HEART IS REGULAR IN RATE AND RHYTHM. BILATERAL LUNGS ARE NOTED WITH DIMINISHED LUNG SOUNDS THROUGHOUT. ABDOMEN IS ROUND, SOFT, AND NON-TENDER WITH NORMAL BOWEL SOUNDS NOTED IN ALL QUADRANTS. HER VITALS THIS MORNING ARE 98.1-67-20-91%-118/66. LABS WERE OBTAINED. ABNORMAL LAB VALUES INCLUDE THE FOLLOWING: RBC 3.31, HGB 10.5, HCT 30.8, GLUCOSE 100, CALCIUM 7.7, TOTAL PROTEIN 5.9, ALBUMIN 2.9. BLOOD AND SPUTUM CULTURES PENDING. SHE IS CURRENTLY RECEIVING IV ANTIBIOTICS, RESPIRATORY TX, SUPPLEMENTAL OXYGEN, AND IV PAIN CONTROL. WE WILL CONTINUE WITH CURRENT PLAN OF CARE TODAY. OTHERWISE, WE PLAN TO FOLLOW UP WITH AM LABS AND CONTINUE TO MONITOR. - Past Medical Family Social History Past Med/Fam/Surg Hx: No changes since H&P Allergies: Allergies No Known Allergies [NKA] Allergy (Verified 03/15/19 09:32) - Review of Systems ROS: No change since H&P - Vital Signs and I&O's Vital Signs: Temperature 97.6 F Pulse Rate [Left Radial] 76 Pulse Rate 71 Respiratory Rate 18 Blood Pressure [Right Arm] 134/81 Blood Pressure [Left Arm] 144/67 Blood Pressure 110/69 O2 Sat by Pulse Oximetry 97 Intake and Output: Intake & Output 03/15/19 03/16/19 03/17/19 03/18/19 11:59 11:59 11:59 11:59 Intake Total 590 / 590 3480 / 3480 Output Total 1275 / 1275 2700 / 2700 Balance -685 / -685 780 / 780 - Physical Exam Oriented: Normal Eyes: Normal Ear: Normal Nose: Normal Throat: Normal Cardiovascular: Tachycardia. negative: S3, S4, Murmur : Normal Auscultation: Bowel Sounds: Normal Tenderness: Normal Skin: Normal Musculoskeletal: Back:Thoracic, Back:Lumbar, Tender Psychiatric: Normal Mood Description: Calm Affect: Normal Speech Pattern: Clear, Appropriate - Laboratory and Diagnostics Result Diagrams: 03/17/19 04:16 03/17/19 04:16 Labs: 03/15/19 10:10 Blood Blood Culture - Preliminary 03/15/19 10:00 Blood Blood Culture - Preliminary 03/16/19 00:20 Sputum - Expectorated Sputum Sputum Culture - Preliminary 03/16/19 00:20 Sputum - Expectorated Sputum - Final Laboratory WBC 3.4 X10^3/uL (3.6-10.0) L 03/17/19 04:16 RBC 3.07 X10^6/uL (3.5-5.4) L 03/17/19 04:16 Hgb 9.8 g/dL (12.0-16.0) L 03/17/19 04:16 Hct 28.8 % (36.0-47.0) L 03/17/19 04:16 MCV 93.8 fL (80.0-100.0) 03/17/19 04:16 MCH 31.8 pg (27.0-34.0) 03/17/19 04:16 MCHC 33.9 g/dL (33.0-35.0) 03/17/19 04:16 RDW 13.1 % (11.6-16.5) 03/17/19 04:16 Plt Count 179 X10^3/uL (150.0-450.0) 03/17/19 04:16 Plt Count Comment Adequate (ADEQUATE) 03/15/19 10:00 MPV 8.1 fL (7.4-11.0) 03/17/19 04:16 Neut % (Auto) 53.6 % (42.0-75.0) 03/17/19 04:16 Lymph % (Auto) 30.7 % (21.0-51.0) 03/17/19 04:16 [place] % (Auto) 10.8 % (0.0-13.0) 03/17/19 04:16 Eos % (Auto) 3.9 % (0.9-2.9) H 03/17/19 04:16 Baso % (Auto) 1.0 % (0.2-1.0) 03/17/19 04:16 Neut # (Auto) 1.8 x10^3/uL (2.2-4.8) L 03/17/19 04:16 Lymph # (Auto) 1.1 X10^3/uL (1.3-2.9) L 03/17/19 04:16 [place] # (Auto) 0.4 x10^3/uL (0.3-0.8) 03/17/19 04:16 Eos # (Auto) 0.1 x10^3/uL (0.0-0.2) 03/17/19 04:16 Baso # (Auto) 0.0 X10^3/uL (0.0-0.1) 03/17/19 04:16 Absolute Nucleated RBC 0.2 /100WBC 03/17/19 04:16 Total Counted 100 03/15/19 10:00 Neutrophils % (Manual) 88 % (39-76) H 03/15/19 10:00 Band Neutrophils % 3 % (0-10) 03/15/19 10:00 Lymphocytes % (Manual) 8 % (13-43) L 03/15/19 10:00 Monocytes % (Manual) 1 % (4-9) L 03/15/19 10:00 Plt Morphology Comment Normal (NORMAL) 03/15/19 10:00 RBC Morphology Normal (NORMAL) 03/15/19 10:00 INR Target Range - 03/15/19 10:00 INR 0.97 (0.8-1.3) 03/15/19 10:00 APTT 24.2 SECONDS (22.9-36.5) 03/15/19 10:00 PTT Comment - 03/15/19 10:00 D-Dimer 259 ng/mL (0-400) 03/15/19 10:00 Sodium 144 mmol/L (136-145) 03/17/19 04:16 Corrected Sodium TNP 03/17/19 04:16 Potassium 3.3 mmol/L (3.5-5.1) L 03/17/19 04:16 Chloride 109 mmol/L (98-107) H 03/17/19 04:16 Carbon Dioxide 30.0 mmol/L (21-32) 03/17/19 04:16 BUN 8 mg/dL (7-18) 03/17/19 04:16 Creatinine 0.59 mg/dL (0.55-1.02) 03/17/19 04:16 Est GFR (MDRD) Af Amer > 60 (>60) 03/17/19 04:16 Est GFR (MDRD) Non-Af > 60 (>60) 03/17/19 04:16 Glucose 105 mg/dL (65-99) H 03/17/19 04:16 Calcium 7.6 mg/dL (8.5-10.1) L 03/17/19 04:16 Corrected Calcium 8.7 mg/dL (8.5-10.1) 03/17/19 04:16 Magnesium 2.1 mg/dL (1.7-2.9) 03/17/19 04:16 Total Bilirubin 0.10 mg/dL (0.2-1.0) L 03/17/19 04:16 AST 20 Units/L (15-37) 03/17/19 04:16 ALT 35 Units/L (12-78) 03/17/19 04:16 Alkaline Phosphatase 61 Units/L (46-116) 03/17/19 04:16 Creatine Kinase 42 Units/L (26-192) 03/17/19 08:57 CK-MB (CK-2) < 1.0 ng/mL (0-4.0) 03/17/19 08:57 CK/CKMB % Calc 2.4 % (<4) 03/17/19 08:57 Troponin I < 0.02 ng/mL (0-1.5) 03/17/19 08:57 Total Protein 5.5 g/dL (6.4-8.2) L 03/17/19 04:16 Albumin 2.6 g/dL (3.4-5.0) L 03/17/19 04:16 Globulin 2.9 g/dL (2.5-4.5) 03/17/19 04:16 Albumin/Globulin Ratio 0.9 Ratio (1.1-2.1) L 03/17/19 04:16 Specimen Type Catherized urine 03/15/19 18:04 Urine Color Yellow (YELLOW) 03/15/19 18:04 Urine Appearance Clear (CLEAR) 03/15/19 18:04 Urine pH 7.0 (5.0 - 8.0) 03/15/19 18:04 Ur Specific [place] 1.015 (1.000-1.030) 03/15/19 18:04 Urine Protein Negative (NEGATIVE) 03/15/19 18:04 Urine Glucose (UA) Negative (NEGATIVE) 03/15/19 18:04 Urine Ketones 1+ (NEGATIVE) 03/15/19 18:04 Urine Occult Blood 1+ (NEGATIVE) 03/15/19 18:04 Urine Nitrite Negative (NEGATIVE) 03/15/19 18:04 Urine Bilirubin Negative (NEGATIVE) 03/15/19 18:04 Urine Urobilinogen Normal (NORMAL) 03/15/19 18:04 Ur Leukocyte Esterase Negative (NEGATIVE) 03/15/19 18:04 Urine RBC 0-2 /HPF (NONE SEEN) 03/15/19 18:04 Urine WBC 0-2 /HPF (NONE SEEN) 03/15/19 18:04 Ur Squamous Epith Cells Rare /HPF (NEGATIVE) 03/15/19 18:04 Urine Bacteria Negative /HPF (NEGATIVE) 03/15/19 18:04 Ur Culture Indicated? No/not indicated 03/15/19 18:04 - Plan (1) COPD with acute bronchitis Status: Acute Plan: IV ANTIBIOTICS, RESPIRATORY TX, SUPPLEMENTAL OXYGEN, CONTINUE TO MONTIOR (2) Intractable back pain Status: Acute Plan: MORPHINE 4MG IV Q6H PRN PAIN, CONTINUE TO MONITOR
== END 2019-03-17 11:52 | disposition home or self-care (01) ==
LOC: ER 09:23 → MED/SURG 15:30 → INTOOBSV 15:30 → MED/SURG 15:40
PROVIDERS: ADMIT Internal Medicine; ATTEND Internal Medicine
DX: M51.26 Other intervertebral disc displacement, lumbar region; M47.894 Other spondylosis, thoracic region; J20.8 Acute bronchitis due to other specified organisms; R94.31 Abnormal electrocardiogram [ECG] [EKG]; R07.81 Pleurodynia; J44.1 Chronic obstructive pulmonary disease with (acute) exacerbation; Z79.899 Other long term (current) drug therapy; I10 Essential (primary) hypertension; J44.0 Chronic obstructive pulmonary disease with (acute) lower respiratory infection; R06.02 Shortness of breath; R26.89 Other abnormalities of gait and mobility; M85.88 Other specified disorders of bone density and structure, other site
CPT/HCPCS: 36415; 51701; 51702; 71010; 71045; 72128; 72131; 80053; 81001; 81003; 82550; 82553; 83735; 84484; 85025; 85378; 85610; 85730; 87040; 87070; 87205; 93005; 94640; 94760; 96365; 96374; 97161; 99284; A4222; G0378; J0696; J2270; J2405; J7030; J7620; J7626

== ENCOUNTER 2021-10-27 10:21 | Observation (INO) ==
[2021-10-27 10:29] VITALS: BMI 27.3
[2021-10-27] MEDS ORDERED: LEVAQUIN PREMIX IV 500 MG 500 MG/100 ML BAG IV ONE ×2 (11:51→11:59)
[2021-10-27] MEDS ORDERED: NS 1,000 ML IV 1,000 ML IV STA (11:51)
--- NOTE | 2021-10-27 11:51 | DR.SOBA ---
HPI Time Seen Time Seen by Provider: 10/27/21 11:51 Primary Care Physician Primary Care Physician: Johnathan HPI Comment HPI Comment: PATIENT WITH A HISTORY OF COPD, DIAGNOSED WITH COVID YESTERDAY, COMPLAINS OF FEVER, CHILLS, PRODUCTIVE COUGH YELLOW SPUTUM, ARTHRALGIAS. HAS BILATERAL LOWER ANTERIOR CHEST PAINS, DYSPNEA. DENIES DIAPHORESIS AND PALPITAT IONS Complaints Chief Complaint Doctors Comments: FEVER, COUGH ACHES Chief Complaint:: Pt states she was diagnosed with covid yesterday. She was tested in the parking lot of her providers office, but not seen by provider. She c/o shortness of breath, bodyaches, fever, nausea and cough. COVID-19 Has patient experienced Coronavirus symptoms: Yes Coronavirus symptoms experienced: Fever and Coughing Reviewed Nurses Notes Reviewed: Yes Source History Provided: Patient Mode of Arrival Mode of Arrival: Ambulatory Timing Onset of Chief Complaint: 10/20/21 Context Onset:: At Rest PE Risk Factors:: None History of:: COPD Associated Signs and Symptoms Associated Signs and Symptoms: Fever, Cough and Chest Pain If Chest Pain Quality: Sharp and Stabbing If Cough Cough: Productive PMH PMH Past Medical History: Yes Past Medical History: COPD, Hypertension and Hypothyroidism Past Medical History Comment: osteoporosis Past Surgical History: Yes Surgical History: Hysterectomy Family History History of Family Medical Conditions: Yes Family Medical History: Diabetes Mellitus, Cancer, Coronary Artery Disease and Hypertension Social History Alcohol Use: None Do you use any recreational Drugs:: No Lives With: Family Lives Where: Home Infectious screening In the last 2 months have you had wt loss of >10#?: NO Have you had fever, night sweats or hemotysis?: No Have you traveled outside the country in the last 6 months?: No Isolation: Droplet ROS Review of Systems Constitutional: See HPI, Chills, Fever and Malaise Eyes: No Symptoms Reported ENTM: No Symptoms Reported Respiratoy: Productive Cough Cardiovascular: Chest Pain Gastrointestinal/Abdominal: No Symptoms Reported Genitourinary: No Symptoms Reported Neurological: No Symptoms Reported Musculoskeletal: No Symptoms Reported Integumentary: No Symptoms Reported Hematologic/Lymphatic: No Symptoms Reported Endocrine: No Symptoms Reported Psychiatric: No Symptoms Reported All Other Systems: Reviewed and Negative PE Vital Signs Vitals: Temperature 98.9 F Pulse Rate 83 Respiratory Rate 22 Blood Pressure [Right Arm] 134/81 Blood Pressure [Left Arm] 144/67 Blood Pressure 123/64 O2 Sat by Pulse Oximetry 96 General Limitations: No Limitations General Appearance: Alert and In No Apparent Distress Head Head Exam: Normal Inspection and Atraumatic Eyes Eye exam: Normal Appearance, PERRL and EOMI ENT ENT Exam: Normal Exam Neck Neck Exam: Normal Inspection and Full ROM Chest Chest Inspection: Normal Inspection, Symmetric Chest Wall Rise and Tenderness (BILAT LOWER RIBS) Respiratory Respiratory Exam: Normal Lung Sounds Bilat Respiratory Exam: Left: Decreased Breath Sounds and Lower: Decreased Breath Sounds Cardiovascular Cardiovascular Exam: Regular Rate and Normal Rhythm Abdominal Exam Abdominal Exam: Normal Inspection and Normal Bowel Sounds Extremities Extremities Exam: Normal Inspection and Full ROM Back Back Exam: Normal Inspection and Full ROM Neurologic Neurological Exam: Alert and Oriented X3 Psychiatric Psychiatric Exam: Normal Affect Skin Skin Exam: Warm and Dry MDM Differential Diagnosis Differential Diagnosis: COPD, Pneumonia, Pulmonary embolism and Other (COVID) COURSE Treatment Treatment: IV NORMAL SALINE 100ML/HR, AFTER BLOOD CULTURES LEVAQUIN 500MG IVPB, SOLUMEDROL 125MG IV, DUO AEROSOL TX, Consultation Call Returned: 16:00 Consultation Comments: FINDINGS DISCUSSED WITH DR DIAZ FOR OBSERVATION ROR Labs Reviewed Laboratory Results Reviewed?: Yes Result Diagrams: 10/27/21 12:05 10/27/21 12:05 Laboratory: WBC 5.5 X10^3/uL (3.6-10.0) 10/27/21 12:05 RBC 3.93 X10^6/uL (3.5-5.4) 10/27/21 12:05 Hgb 12.2 g/dL (12.0-16.0) 10/27/21 12:05 Hct 35.9 % (36.0-47.0) L 10/27/21 12:05 MCV 91.6 fL (80.0-100.0) 10/27/21 12:05 MCH 31.0 pg (27.0-34.0) 10/27/21 12:05 MCHC 33.9 g/dL (33.0-35.0) 10/27/21 12:05 RDW 13.2 % (11.6-16.5) 10/27/21 12:05 Plt Count 224 X10^3/uL (150.0-450.0) 10/27/21 12:05 MPV 7.8 fL (7.4-11.0) 10/27/21 12:05 Neut % (Auto) 67.8 % (42.0-75.0) 10/27/21 12:05 Lymph % (Auto) 16.7 % (21.0-51.0) L 10/27/21 12:05 [place] % (Auto) 12.2 % (0.0-13.0) 10/27/21 12:05 Eos % (Auto) 2.7 % (0.9-2.9) 10/27/21 12:05 Baso % (Auto) 0.6 % (0.2-1.0) 10/27/21 12:05 Neut # (Auto) 3.7 x10^3/uL (2.2-4.8) 10/27/21 12:05 Lymph # (Auto) 0.9 X10^3/uL (1.3-2.9) L 10/27/21 12:05 [place] # (Auto) 0.7 x10^3/uL (0.3-0.8) 10/27/21 12:05 Eos # (Auto) 0.2 x10^3/uL (0.0-0.2) 10/27/21 12:05 Baso # (Auto) 0.0 X10^3/uL (0.0-0.1) 10/27/21 12:05 Absolute Nucleated RBC 0.1 /100WBC 10/27/21 12:05 D-Dimer 1.31 ug/ml (0.0-0.57) H* 10/27/21 12:05 Sample Site Rra 10/27/21 11:59 ABG pH 7.460 (7.35-7.45) H 10/27/21 11:59 ABG pCO2 45.0 mmHg (35.0-45.0) 10/27/21 11:59 ABG pO2 113.0 mmHg (80.0-100.0) H 10/27/21 11:59 ABG HCO3 32.0 mmol/L (22-26) H* 10/27/21 11:59 ABG O2 Saturation 99.0 % (90-100) 10/27/21 11:59 ABG Base Excess 7.2 mmol/L (-2.0-2.0) H 10/27/21 11:59 Naveen Test Pos 10/27/21 11:59 A-a Gradient 87.0 mmHg 10/27/21 11:59 FiO2 36.0 10/27/21 11:59 Blood Gas Comments 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,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 10/27/21 11:59 Sodium 136 mmol/L (136-145) 10/27/21 12:05 Corrected Sodium TNP 10/27/21 12:05 Potassium 3.5 mmol/L (3.5-5.1) 10/27/21 12:05 Chloride 100 mmol/L (98-107) 10/27/21 12:05 Carbon Dioxide 31.6 mmol/L (21-32) 10/27/21 12:05 BUN 11 mg/dL (7-18) 10/27/21 12:05 Creatinine 0.68 mg/dL (0.55-1.02) 10/27/21 12:05 Est GFR (MDRD) Af Amer > 60 (>60) 10/27/21 12:05 Est GFR (MDRD) Non-Af > 60 (>60) 10/27/21 12:05 Glucose 99 mg/dL (65-99) 10/27/21 12:05 Calcium 9.4 mg/dL (8.5-10.1) 10/27/21 12:05 Corrected Calcium 10.0 mg/dL (8.5-10.1) 10/27/21 12:05 Magnesium 2.0 mg/dL (1.7-2.9) 10/27/21 12:05 Ferritin 209 ng/mL (8-252) 10/27/21 12:05 Total Bilirubin 0.20 mg/dL (0.2-1.0) 10/27/21 12:05 AST 19 Units/L (15-37) 10/27/21 12:05 ALT 46 Units/L (12-78) 10/27/21 12:05 Alkaline Phosphatase 70 Units/L (46-116) 10/27/21 12:05 Troponin I < 0.02 ng/mL (0-1.5) 10/27/21 12:05 C-Reactive Protein 86.00 mg/L (0-3.0) H 10/27/21 12:05 Total Protein 7.5 g/dL (6.4-8.2) 10/27/21 12:05 Albumin 3.3 g/dL (3.4-5.0) L 10/27/21 12:05 Globulin 4.2 g/dL (2.5-4.5) 10/27/21 12:05 Albumin/Globulin Ratio 0.8 Ratio (1.1-2.1) L 10/27/21 12:05 XRAY XRAY Interpreted by: Radiologist (CTA CHEST C/W NO EVIDENCE OF PULM EMBOLISM, NO INFILTRATES) X-ray Results: PORTABLE CHEST XRAY- PERIHILAR INTERSTITIAL OPACITIES EKG Rate: 81 [place]: Normal ST: Nonsp Opioid Opioid Risk Tool Total: 0 Total Score Risk Category: Low Risk Copyright: Viral JACQUES predicting aberrant behaviors Diagnosis Discharge Problem: COPD (chronic obstructive pulmonary disease), COVID, Acute dyspnea Instructions Forms: Precautions for COVID19 [facility] Social Distancing
[2021-10-27] MEDS ORDERED: NS 1,000 ML IV 1,000 ML ONE ×2 (11:59→23:33)
[2021-10-27 12:03] LABS: ABG BASE EXCESS 7.2 mmol/L (-2.0-2.0)
[2021-10-27 12:04] LABS: ABG ALLEN TEST POS
[2021-10-27] MEDS ORDERED: ASPIRIN 81 MG CHEWTAB PO STA (12:09)
[2021-10-27] MEDS ORDERED: NITROSTAT SL PRN (12:09)
[2021-10-27] MEDS ORDERED: DUONEB 0.5 MG/3 MG (3 mL) NEB ONE ×2 (12:11→12:37)
[2021-10-27] MEDS ORDERED: ASPIRIN 81 MG CHEWTAB ONE (12:31)
[2021-10-27 12:39] LABS: BASOPHILS % (AUTO) 0.6 % (0.2-1.0); EOSINOPHILS # (AUTO) 0.2 x10^3/uL (0.0-0.2); EOSINOPHILS % (AUTO) 2.7 % (0.9-2.9); HEMATOCRIT 35.9 % (36.0-47.0); HEMOGLOBIN 12.2 g/dL (12.0-16.0); LYMPHOCYTES # (AUTO) 0.9 X10^3/uL (1.3-2.9); LYMPHOCYTES % (AUTO) 16.7 % (21.0-51.0); MEAN CORPUSCULAR HGB CONC 33.9 g/dL (33.0-35.0); MEAN CORPUSCULAR VOLUME 91.6 fL (80.0-100.0); MEAN PLATELET VOLUME 7.8 fL (7.4-11.0); MONOCYTES # (AUTO) 0.7 x10^3/uL (0.3-0.8); MONOCYTES % (AUTO) 12.2 % (0.0-13.0); NEUTROPHILS # (AUTO) 3.7 x10^3/uL (2.2-4.8); NEUTROPHILS % (AUTO) 67.8 % (42.0-75.0); PLATELET COUNT 224 X10^3/uL (150.0-450.0); RED BLOOD COUNT 3.93 X10^6/uL (3.5-5.4); RED CELL DISTRIBUTION WIDTH 13.2 % (11.6-16.5); WHITE BLOOD COUNT 5.5 X10^3/uL (3.6-10.0)
[2021-10-27 12:55] LABS: ALANINE AMINOTRANSFERASE 46 Units/L (12-78); ALBUMIN 3.3 g/dL (3.4-5.0); ALKALINE PHOSPHATASE 70 Units/L (46-116); ASPARTATE AMINO TRANSFERASE 19 Units/L (15-37); BLOOD UREA NITROGEN 11 mg/dL (7-18); CALCIUM 9.4 mg/dL (8.5-10.1); CARBON DIOXIDE 31.6 mmol/L (21-32); CHLORIDE 100 mmol/L (98-107); CREATININE 0.68 mg/dL (0.55-1.02); SODIUM 136 mmol/L (136-145); TOTAL PROTEIN 7.5 g/dL (6.4-8.2); eGFR NON BLACK RACES > 60 (>60)
--- NOTE | 2021-10-27 12:58 | RAD ---
HISTORYPt states she was diagnosed with covid yesterday. She c/o shortness of breath, bodyaches, fever, nausea and cough. COPD, HTN, HYSTER[Cough]. [Dyspnea].[Single portable view] of the chest.Comparison: [None].Findings:The trachea is midline. The cardiac silhouette is unremarkable. Background changes of chronic bronchitis/COPD are also identified. There are increased [perihilar] interstitial opacities seen, suggesting [central bronchitis or a viral respiratory infection]. Please correlate medically and clinically. The remaining lungs [are otherwise clear without focal infiltrate or pleural effusion]. The bony thorax [is unremarkable].IMPRESSION:Chest findings suggesting a viral respiratory tract infection, as above.No lobar infiltrates or pleural effusion seen. Please correlate medically.Background changes of chronic bronchitis/COPD are also observedFollow-up noncontrast chest CT imaging may be beneficial.Electronically signed by: MEREDITH PRICE III (Oct 27, 2021 12:57:03)
[2021-10-27] MEDS ORDERED: TYLENOL 325 MG TAB PO STA (13:47)
--- NOTE | 2021-10-27 14:19 | CT ---
HISTORYdyspnea, elevated ddimer, COVID+STUDYCTA CHESTCOMPARISONChest radiograph from 10/27/2021.TECHNIQUECTA chest protocol with axial images from the thoracic inlet to upper abdomen with IV contrast. Sagittal and coronal reformats and MIP images were created. Automated exposure control was utilized.FINDINGSThe visualized thyroid gland appears benign. Mildly atherosclerotic normal caliber thoracic aorta. Pulmonary artery is normal in caliber centrally. No filling defect is identified to suggest pulmonary embolism. The heart is normal in size. No pericardial effusion. 9 mm right hilar lymph node short axis image 76 series 4. 1 cm short axis pretracheal lymph node image 55 series 4.Visualized upper abdomen has a benign appearance. No acute osseous abnormality. There is a tiny filling defect of the right lateral side wall of the trachea measuring 3 mm AP on image 34 series 5. Mainstem bronchi appear patent. There is moderate to severe COPD with scattered areas of fibrosis. No pleural effusion or pneumothorax.IMPRESSIONModerate to severe COPD.Negative for PE.3 mm filling defect of the right lateral side wall of the trachea. This may represent tracheal secretion. Consider short interval CT follow-up to document resolution.Likely reactive borderline mediastinal adenopathy.Electronically signed by: Indra Anderson (Oct 27, 2021 14:17:21)
[2021-10-27] MEDS ORDERED: TYLENOL 325 MG TAB PO ONE (15:03)
[2021-10-27] MEDS ORDERED: REMDESIVIR 200 MG in NS 250 ML IV 250 ML IV ONE (16:09)
[2021-10-27] MEDS ORDERED: REMDESIVIR IV ONE (16:15)
[2021-10-27] MEDS ORDERED: NS 250 ML IV 250 ML IV ONE (16:15)
[2021-10-27] MEDS: PULMICORT NEB TX 0.5 MG NEB SCH (21:50)
[2021-10-27] MEDS ORDERED: SOLU-Medrol 40 MG VIAL ONE (23:33)
[2021-10-27] MEDS: SOLU-Medrol 40 MG VIAL IVP SCH (23:40)
[2021-10-27] MEDS: NS 1,000 ML IV 1,000 ML IV SCH (23:40)
[2021-10-28] MEDS ORDERED: TYLENOL 325 MG TAB PO ONE ×2 (00:14→07:08)
[2021-10-28] MEDS: TYLENOL 325 MG TAB PO PRN ×3 (00:19→18:05)
[2021-10-28] MEDS: PROVENTIL NEB TX 0.083% 2.5MG/ 3ML NEB SCH ×4 (00:20→18:09)
[2021-10-28] MEDS: NS 1,000 ML IV 1,000 ML IV SCH (05:28)
[2021-10-28] MEDS ORDERED: SOLU-Medrol 40 MG VIAL ONE ×2 (05:42→13:57)
[2021-10-28] MEDS: SOLU-Medrol 40 MG VIAL IVP SCH ×3 (06:05→21:57)
[2021-10-28 06:33] LABS: BASOPHILS % (AUTO) 0.4 % (0.2-1.0); EOSINOPHILS % (AUTO) 0.3 % (0.9-2.9); HEMATOCRIT 31.7 % (36.0-47.0); HEMOGLOBIN 10.7 g/dL (12.0-16.0); LYMPHOCYTES # (AUTO) 0.4 X10^3/uL (1.3-2.9); LYMPHOCYTES % (AUTO) 9.4 % (21.0-51.0); MEAN CORPUSCULAR HEMOGLOBIN 30.9 pg (27.0-34.0); MEAN CORPUSCULAR HGB CONC 33.7 g/dL (33.0-35.0); MEAN CORPUSCULAR VOLUME 91.8 fL (80.0-100.0); MEAN PLATELET VOLUME 7.6 fL (7.4-11.0); MONOCYTES # (AUTO) 0.1 x10^3/uL (0.3-0.8); MONOCYTES % (AUTO) 3.5 % (0.0-13.0); NEUTROPHILS # (AUTO) 3.4 x10^3/uL (2.2-4.8); NEUTROPHILS % (AUTO) 86.4 % (42.0-75.0); PLATELET COUNT 209 X10^3/uL (150.0-450.0); RED BLOOD COUNT 3.45 X10^6/uL (3.5-5.4); RED CELL DISTRIBUTION WIDTH 13.2 % (11.6-16.5); WHITE BLOOD COUNT 3.9 X10^3/uL (3.6-10.0)
--- NOTE | 2021-10-28 07:15 | RAD ---
HISTORYCOPD, COVID-19STUDYChest AP [id number]/2022 chest x-ray and CTA chestFINDINGSHeart size is normal. Diana are normal. Diffuse emphysematous changes are present in markedly hyperinflated lungs. No acute alveolar infiltrates or pleural effusions are identified. Bony thorax is unremarkable.IMPRESSIONEmphysematous COPDNo acute infiltratesElectronically signed by: TROY ALVARENGA (Oct 28, 2021 07:14:31)
[2021-10-28 07:20] LABS: ALANINE AMINOTRANSFERASE 44 Units/L (12-78); ALBUMIN 2.9 g/dL (3.4-5.0); ALKALINE PHOSPHATASE 71 Units/L (46-116); ASPARTATE AMINO TRANSFERASE 24 Units/L (15-37); BLOOD UREA NITROGEN 10 mg/dL (7-18); CALCIUM 8.3 mg/dL (8.5-10.1); CHLORIDE 103 mmol/L (98-107); COR CA(FOR HYPOALB) 9.2 mg/dL (8.5-10.1); COR NA(FOR HYPERGLY) 141 mmol/L (136-145); CREATININE 0.58 mg/dL (0.55-1.02); SODIUM 139 mmol/L (136-145); TOTAL PROTEIN 6.9 g/dL (6.4-8.2); eGFR NON BLACK RACES > 60 (>60)
[2021-10-28] MEDS ORDERED: NS 250 ML IV 250 ML IV ONE (08:18)
[2021-10-28] MEDS ORDERED: REMDESIVIR IV ONE (08:18)
[2021-10-28] MEDS: REMDESIVIR 100 MG in NS 250 ML IV 250 ML IV SCH (08:25)
[2021-10-28] MEDS: PULMICORT NEB TX 0.5 MG NEB SCH ×2 (09:25→20:43)
[2021-10-28] MEDS ORDERED: ZOFRAN INJ 4 MG VIAL IVP PRN (11:40)
[2021-10-28] MEDS ORDERED: PHARMACY CONSULT - IVERMECTIN XX SCH (12:00)
--- NOTE | 2021-10-28 12:01 | DR.H&P ---
H&P - History & Physical for Day of: H&P Date: 10/27/21 - Chief Complaint Chief Complaint: SHORTNESS OF BREATH, FEVER, CHILLS, PRODUCTIVE COUGH, WEAKNESS, NAUSEA, AND GENERALIZED BODY PAIN. - History of Present Illness History of Present Illness: IS A 61 YEAR OLD PATIENT OF OURS. SHE PRESENTED TO THE ER WITH REPORTS OF INCREASING SHORTNESS OF BREATH, FEVER, CHILLS, PRODUCTIVE COUGH, WEAKNESS, NAUSEA, AND GENERALIZED BODY PAIN. SHE ADMITS TO TESTING POSITIVE FOR COVID-19 ON 10/26/21. SHE WAS PRESCRIBED AZITHROMYCIN 250MG PO DAILY AND AN ALBUTEROL INHALER BY HER SOURCING ENGINEER, WHICH SHE HAS BEEN TAKING SINCE 10/21/21. HER PMH INCLUDES: COPD, HTN, HYPOTHYROIDISM, OSTEOPOROSIS, AND HYSTERECTOMY. SHE USES OXYGEN AT HOME, USUALLY 3-3.5 LITERS/MINUTE. AUSCULTATION OF LUNG SIN REVEALED WHEEZING THROUGHOUT. ON ARRIVAL, HER VITALS WERE 98.9-88-22-93%-145/84. LABS WERE OBTAINED. ABNORMAL LAB VALUES INCLUDED THE FOLLOWING: HCT 35.9, D-DIMER 1.31, CRP 86.00, ALBUMIN 3.3. COVID-19 POSITIVE. A URINALYSIS WAS UNREMARKABLE. AN ABG WAS OBTAINED AND REVEALED: PH 7.460, PC02 45, P02 113, HC03 32.0, 02 SAT 99, BASE EXCESS 7.2, A-A GRADIENT 87, FI02 36. BLOOD AND SPUTUM CULTURES WERE SET UP. A CHEST XRAY WAS OBTAINED AND REVEALED: Chest findings suggesting a viral respiratory tract infection. No lobar infiltrates or pleural effusion seen. Please correlate medically. Background changes of chronic bronchitis/COPD are also observed. F ollow-up noncontrast chest CT imaging may be beneficial. A CHEST CTA WAS ALSO OBTAINED AND REVEALED: Moderate to severe COPD. Negative for PE. 3 mm filling defect of the right lateral side wall of the trachea. This may represent tracheal secretion. Likely reactive borderline mediastinal adenopathy. EKG REVEALED: SINUS RHYTHM WITH HR 81. IN THE ER, SHE WAS GIVEN A LEVAQUIN 500MG IV X 1, ECOTRIN 324MG PO X 1, AND REMDESIVIR 200MG IV X 1. SHE WAS ADMITTED TO THE HOSPITAL FOR FURTHER EVALUATION AND TREATMENT OF BRONCHITIS DUE TO COVID-19, COPD EXACERBATION. SHE WAS STARTED ON NORMAL SALINE AT KVO, REMDESIVIR 100MG IV DAILY, ASCORBIC ACID 1500MG IV Q6H, ALBUTEROL NEBS Q6H, PULMICORT NEBS BID, TESSALON PERLES TID PRN, FLUVOXAMINE 50MG PO BID, SOLU-MEDROL 80MG IV Q8H, IVERMECTIN, ZOFRAN 4MG IV Q4H PRN, AND ZINC SULFATE 220MG PO DAILY. OTHERWISE, WE PLAN TO FOLLOW UP WITH AM LABS AND CHEST XRAY AND CONTINUE TO MONITOR. TIME SPENT ON CLINICAL ASSESSMENT, REVIEWING LABS AND IMAGING, DECISION MAKING, AND DOCUMENTATION WAS GREATER THAN 75 MINUTES. - Past Medical History Past Medical History: Hypertension, Hypothyroidism, COPD - Past Surgical History Surgical History: Hysterectomy - Family History Family Medical History: Cancer - Social History Does patient currently use any type of tobacco product: No Have you used tobacco products in the last 12 months: No Type of Tobacco Use: None Alcohol Use: Occasionally Drug Use: None - Medications Home Medications: No Known Allergies [NKA] Allergy (Verified 03/15/19 09:32) CONTINUE taking the following medications albuterol sulfate 2 puff INHALATION Q6H PRN 10/27/21 [History] - Review of Systems Constitutional: Fever, Chills, Weakness, Malaise Eyes: No Symptoms Reported ENT: No Symptoms Reported Respiratory: See HPI, Cough, Shortness of Breath, SOB with Excertion, Sputum, Wheezing Cardiovascular: Chest Pain Gastrointestinal: No Symptoms Reported Genitourinary: No Symptoms Reported Musculoskeletal: No Symptoms Reported Skin: No Symptoms Reported Neurological: Weakness - Physical Exam Vital Signs: Temperature 98.2 F Pulse Rate 75 Respiratory Rate 20 Blood Pressure [Right Arm] 134/81 Blood Pressure [Left Arm] 144/67 Blood Pressure 179/89 O2 Sat by Pulse Oximetry 95 Oriented: Normal Eyes: Normal Ear: Normal Nose: Normal Throat: Normal Respiratory: Wheezes Throughout Cardiovascular: Normal : Normal Auscultation: Bowel Sounds: Normal Palpation: Normal Tenderness: Normal Skin: Normal Musculoskeletal: Normal Psychiatric: Normal Mood Description: Calm Affect: Normal Speech Pattern: Clear - Assessment/Plan (1) Bronchitis due to COVID-19 virus Status: Acute Plan: ADMIT, SUPPLEMENTAL OXYGEN, NORMAL SALINE AT KVO, REMDESIVIR 100MG IV DAILY, ASCORBIC ACID 1500MG IV Q6H, ALBUTEROL NEBS Q6H, PULMICORT NEBS BID, TESSALON PERLES TID PRN, FLUVOXAMINE 50MG PO BID, SOLU-MEDROL 80MG IV Q8H, IVERMECTIN, ZOFRAN 4MG IV Q4H PRN, AND ZINC SULFATE 220MG PO DAILY. (2) COPD exacerbation Status: Acute - Allergies Allergies/Adverse Reactions: Allergies Allergy/AdvReac Type Severity Reaction Status Date / Time No Known Allergies [NKA] Allergy Verified 03/15/19 09:32
[2021-10-28] MEDS ORDERED: PROVENTIL NEB TX 0.083% 2.5MG/ 3ML ONE (13:02)
[2021-10-28] MEDS ORDERED: FLUVOXAMINE MALEATE ONE (13:57)
[2021-10-28] MEDS ORDERED: NS 100 ML IV 100 ML ONE (13:57)
[2021-10-28] MEDS ORDERED: ZINC SULFATE ONE (13:57)
[2021-10-28] MEDS ORDERED: IVERMECTIN ONE (13:57)
[2021-10-28] MEDS ORDERED: ASCORBIC ACID INJ MULTI-DOSE VIAL IV ONE (13:58)
[2021-10-28] MEDS: FLUVOXAMINE MALEATE PO SCH ×2 (14:10→20:46)
[2021-10-28] MEDS: ASCORBIC ACID INJ MULTI-DOSE VIAL 1,500 MG in NS 50 ML IV 50 ML IV SCH ×3 (14:10→20:47)
[2021-10-28] MEDS: ZINC SULFATE PO SCH (14:10)
[2021-10-28] MEDS: IVERMECTIN PO SCH (14:11)
[2021-10-28] MEDS: TESSALON PERLES PO PRN (18:05)
[2021-10-28] MEDS ORDERED: KLOR-CON PO PRN (19:41)
[2021-10-28] MEDS ORDERED: MAGNESIUM SULFATE 1 GRAM/100 mL PREMIX 1 G/100 ML BAG IV PRN (19:41)
[2021-10-28] MEDS: SNACK - Diabetic Appropriate PO SCH (20:00)
[2021-10-28] MEDS: K-DUR TAB 20 MEQ PO PRN (20:46)
[2021-10-28] MEDS: NovoLIN R (or HumuLIN R) SUBCUT PRN (20:46)
[2021-10-28] MEDS ORDERED: COZAAR ONE (21:11)
[2021-10-28] MEDS: COZAAR PO SCH (21:57)
[2021-10-29] MEDS: NS 1,000 ML IV 1,000 ML IV SCH ×2 (00:28→23:34)
[2021-10-29] MEDS: PROVENTIL NEB TX 0.083% 2.5MG/ 3ML NEB SCH (00:34)
[2021-10-29] MEDS: ASCORBIC ACID INJ MULTI-DOSE VIAL 1,500 MG in NS 50 ML IV 50 ML IV SCH ×4 (02:03→21:16)
[2021-10-29 05:39] LABS: ABG BASE EXCESS 8.1 mmol/L (-2.0-2.0)
[2021-10-29 05:40] LABS: ABG HCO3 32.8 mmol/L (22-26)
[2021-10-29] MEDS: NovoLIN R (or HumuLIN R) SUBCUT PRN ×3 (05:47→16:57)
[2021-10-29] MEDS: SOLU-Medrol 40 MG VIAL IVP SCH ×3 (05:47→21:15)
[2021-10-29 05:48] LABS: BASOPHILS % (AUTO) 0.1 % (0.2-1.0); HEMATOCRIT 29.9 % (36.0-47.0); HEMOGLOBIN 10.4 g/dL (12.0-16.0); LYMPHOCYTES # (AUTO) 0.9 X10^3/uL (1.3-2.9); LYMPHOCYTES % (AUTO) 20.8 % (21.0-51.0); MEAN CORPUSCULAR HEMOGLOBIN 31.3 pg (27.0-34.0); MEAN CORPUSCULAR HGB CONC 34.6 g/dL (33.0-35.0); MEAN CORPUSCULAR VOLUME 90.4 fL (80.0-100.0); MEAN PLATELET VOLUME 7.7 fL (7.4-11.0); MONOCYTES # (AUTO) 0.5 x10^3/uL (0.3-0.8); MONOCYTES % (AUTO) 10.4 % (0.0-13.0); NEUTROPHILS % (AUTO) 68.7 % (42.0-75.0); PLATELET COUNT 246 X10^3/uL (150.0-450.0); RED BLOOD COUNT 3.31 X10^6/uL (3.5-5.4); RED CELL DISTRIBUTION WIDTH 13.1 % (11.6-16.5); WHITE BLOOD COUNT 4.4 X10^3/uL (3.6-10.0)
[2021-10-29 05:52] LABS: ALANINE AMINOTRANSFERASE 43 Units/L (12-78); ALBUMIN 2.8 g/dL (3.4-5.0); ALKALINE PHOSPHATASE 61 Units/L (46-116); ASPARTATE AMINO TRANSFERASE 21 Units/L (15-37); BLOOD UREA NITROGEN 15 mg/dL (7-18); CARBON DIOXIDE 32.3 mmol/L (21-32); CHLORIDE 106 mmol/L (98-107); COR NA(FOR HYPERGLY) 145 mmol/L (136-145); CREATININE 0.55 mg/dL (0.55-1.02); MAGNESIUM 2.1 mg/dL (1.7-2.9); SODIUM 143 mmol/L (136-145); TOTAL PROTEIN 6.5 g/dL (6.4-8.2); eGFR NON BLACK RACES > 60 (>60)
--- NOTE | 2021-10-29 05:58 | RAD ---
PROCEDURE: Chest X-ray 1 View .HISTORY: COVID+, COPD .TECHNIQUE: AP view .COMPARISON: 10/28/2021.TECHNICAL QUALITY: Satisfactory .FINDINGS:Unremarkable cardio mediastinal silhouette and normal central vascularity.Unchanged emphysema both lung levy with hyperlucency and hyper expansion. No consolidation, pleural fluid, or pneumothorax.IMPRESSION:Unchanged COPD with no other evidence of active disease.Electronically signed by: Lloyd Alva (Oct 29, 2021 05:57:03)
[2021-10-29] MEDS ORDERED: XOPENEX 1.25 MG/3 ML NEBULE NEB ONE (07:28)
[2021-10-29] MEDS: PULMICORT NEB TX 0.5 MG NEB SCH ×2 (08:45→20:54)
[2021-10-29] MEDS: IVERMECTIN PO SCH (10:00)
[2021-10-29] MEDS: ZINC SULFATE PO SCH (10:00)
[2021-10-29] MEDS: FLUVOXAMINE MALEATE PO SCH ×2 (10:00→21:16)
[2021-10-29] MEDS: REMDESIVIR 100 MG in NS 250 ML IV 250 ML IV SCH (10:00)
[2021-10-29] MEDS: LOVENOX INJ 30 MG SYR SC SCH ×2 (10:32→21:16)
[2021-10-29] MEDS: SINGULAIR TAB 10 MG PO SCH (10:33)
[2021-10-29] MEDS: SYNTHROID 25 mcg TAB PO SCH (10:33)
[2021-10-29] MEDS: ASPIRIN 81 MG CHEWTAB PO SCH (10:33)
[2021-10-29] MEDS: PROTONIX TAB 40 MG PO SCH (10:33)
[2021-10-29] MEDS: XOPENEX 1.25 MG/3 ML NEBULE NEB SCH ×2 (11:21→20:54)
[2021-10-29] MEDS: TESSALON PERLES PO PRN (11:30)
--- NOTE | 2021-10-29 11:58 | PCM.PROG ---
Progress Note - Progress Note for Day of Date of Exam: 10/29/21 - Subjective Subjective: WAS ADMITTED FOR TREATMENT OF BRONCHITIS DUE TO COVID- 19, HYPOXIA, AND COPD. TODAY, SHE IS ALERT AND ORIENTED, SITTING UP IN THE CHAIR ON MORNING ROUNDS. SHE CONTINUES WITH COMPLAINTS OF SHORTNESS OF BREATH AND WEAKNESS, AND BODY ACHES, BUT DOES ADMIT TO SLIGHT IMPROVEMENT IN SYMTOMS SINCE ADMISSION. SHE REMAINS ON OXYGEN VIA NASAL CANNULA AT 4 LPM THIS MORNING. HER SATURATIONS HAVE BEEN 91-95% THROUGHOUT THIS NIGHT AND THIS MORNING. PATIENT REPORTS THAT SHE USUALLY USES OXYGEN AT 3-3.5 LPM AT HOME. ON EXAMINATION, HEART IS REGULAR IN RATE AND RHYTHM. BILATERAL LUNGS ARE NOTED WITH SCATTERED WHEEZING THROUGHOUT. ABDOMEN IS ROUND, SOFT, AND NON-TENDER WITH NORMAL BOWEL SOUNDS NOTED IN ALL QUADRANTS. HER VITALS THIS MORNING ARE: 99.1-75-23-92%-153/75. LABS WERE OBTAINED. ABNORMAL LAB VALUES INCLUDE THE FOLLOWING: RBC 3.31, HGB 10.4, HCT 29.9, D-DIMER 1.31, POTASSIUM 3.3, CARBON DIOXIDE 32.3, GLUCOSE 170, TOTAL BILI 0.10, CRP 54.10, BNP 98.3, ALBUMIN 2.8. BLOOD AND SPUTUM CULTURES ARE PENDING. A CHEST XRAY WAS OBTAINED AND REVEALED: Unchanged COPD with no other evidence of active disease. SHE IS CURRENTLY RECEIVING NORMAL SALINE AT KVO, REMDESIVIR 100MG IV DAILY, ASCORBIC ACID 1500MG IV Q6H, ALBUTEROL NEBS Q6H, PULMICORT NEBS BID, TESSALON PERLES TID PRN, FLUVOXAMINE 50MG PO BID, SOLU- MEDROL 80MG IV Q8H, IVERMECTIN, ZOFRAN 4MG IV Q4H PRN, AND ZINC SULFATE 220MG PO DAILY. WE WILL REVIEW HER HOME MEDICATIONS AND RESUME APPROPRIATE. OTHERWISE, WE PLAN TO FOLLOW UP WITH AM LABS AND CHEST XRAY AND CONTINUE TO MONITOR. TIME SPENT ON CLINICAL ASSESSMENT, REVIEWING LABS AND IMAGING, DECISION MAKING, AND DOCUMENTATION GREATER THAN 45 MINUTES. - Past Medical Family Social History Past Med/Fam/Surg Hx: No changes since H&P Allergies: Allergies No Known Allergies [NKA] Allergy (Verified 03/15/19 09:32) - Review of Systems ROS: No change since H&P - Vital Signs and I&O's Vital Signs: Temperature 99.1 F Pulse Rate 68 Respiratory Rate 19 Blood Pressure [Right Arm] 134/81 Blood Pressure [Left Arm] 144/67 Blood Pressure 134/70 O2 Sat by Pulse Oximetry 93 Intake and Output: Intake & Output 10/26/21 10/27/21 10/28/21 10/29/21 11:59 11:59 11:59 11:59 Intake Total 970 / 970 1779 / 1779 Output Total 2750 / 2750 Balance 970 / 970 -971 / -971 - Physical Exam Oriented: Normal Eyes: Normal Ear: Normal Nose: Normal Throat: Normal Respiratory: Generalized, Wheezes Cardiovascular: Normal : Normal Auscultation: Bowel Sounds: Normal Tenderness: Normal Skin: Normal Musculoskeletal: Normal Psychiatric: Normal Mood Description: Calm Affect: Normal Speech Pattern: Clear, Appropriate - Laboratory and Diagnostics Result Diagrams: 10/29/21 04:46 10/29/21 04:46 Labs: 10/27/21 12:07 Blood Blood Culture - Preliminary 10/27/21 12:05 Blood Blood Culture - Preliminary 10/28/21 10:08 Sputum - Expectorated Sputum Sputum Culture - Preliminary 10/28/21 10:08 Sputum - Expectorated Sputum - Final Laboratory WBC 4.4 X10^3/uL (3.6-10.0) 10/29/21 04:46 RBC 3.31 X10^6/uL (3.5-5.4) L 10/29/21 04:46 Hgb 10.4 g/dL (12.0-16.0) L 10/29/21 04:46 Hct 29.9 % (36.0-47.0) L 10/29/21 04:46 MCV 90.4 fL (80.0-100.0) 10/29/21 04:46 MCH 31.3 pg (27.0-34.0) 10/29/21 04:46 MCHC 34.6 g/dL (33.0-35.0) 10/29/21 04:46 RDW 13.1 % (11.6-16.5) 10/29/21 04:46 Plt Count 246 X10^3/uL (150.0-450.0) 10/29/21 04:46 MPV 7.7 fL (7.4-11.0) 10/29/21 04:46 Neut % (Auto) 68.7 % (42.0-75.0) 10/29/21 04:46 Lymph % (Auto) 20.8 % (21.0-51.0) L 10/29/21 04:46 [place] % (Auto) 10.4 % (0.0-13.0) 10/29/21 04:46 Eos % (Auto) 0.0 % (0.9-2.9) L 10/29/21 04:46 Baso % (Auto) 0.1 % (0.2-1.0) L 10/29/21 04:46 Neut # (Auto) 3.0 x10^3/uL (2.2-4.8) 10/29/21 04:46 Lymph # (Auto) 0.9 X10^3/uL (1.3-2.9) L 10/29/21 04:46 [place] # (Auto) 0.5 x10^3/uL (0.3-0.8) 10/29/21 04:46 Eos # (Auto) 0.0 x10^3/uL (0.0-0.2) 10/29/21 04:46 Baso # (Auto) 0.0 X10^3/uL (0.0-0.1) 10/29/21 04:46 Absolute Nucleated RBC 0.0 /100WBC 10/29/21 04:46 D-Dimer 1.31 ug/ml (0.0-0.57) H* 10/27/21 12:05 Sample Site Lbra 10/29/21 05:39 ABG pH 7.470 (7.35-7.45) H 10/29/21 05:39 ABG pCO2 45.0 mmHg (35.0-45.0) 10/29/21 05:39 ABG pO2 62.0 mmHg (80.0-100.0) L 10/29/21 05:39 ABG HCO3 32.8 mmol/L (22-26) H* 10/29/21 05:39 ABG O2 Saturation 93.0 % (90-100) 10/29/21 05:39 ABG Base Excess 8.1 mmol/L (-2.0-2.0) H 10/29/21 05:39 Naveen Test Na 10/29/21 05:39 A-a Gradient 138.0 mmHg 10/29/21 05:39 FiO2 36.0 10/29/21 05:39 Blood Gas Comments Ana abg well-mtf 10/29/21 05:39 Sodium 143 mmol/L (136-145) 10/29/21 04:46 Corrected Sodium 145 mmol/L (136-145) 10/29/21 04:46 Potassium 3.3 mmol/L (3.5-5.1) L 10/29/21 04:46 Chloride 106 mmol/L (98-107) 10/29/21 04:46 Carbon Dioxide 32.3 mmol/L (21-32) H 10/29/21 04:46 BUN 15 mg/dL (7-18) 10/29/21 04:46 Creatinine 0.55 mg/dL (0.55-1.02) 10/29/21 04:46 Est GFR (MDRD) Af Amer > 60 (>60) 10/29/21 04:46 Est GFR (MDRD) Non-Af > 60 (>60) 10/29/21 04:46 Glucose 170 mg/dL (65-99) H 10/29/21 04:46 POC Glucose (mg/dL) 194 mg/dL (65-99) H 10/29/21 11:47 Calcium 9.0 mg/dL (8.5-10.1) 10/29/21 04:46 Corrected Calcium 10.0 mg/dL (8.5-10.1) 10/29/21 04:46 Magnesium 2.1 mg/dL (1.7-2.9) 10/29/21 04:46 Ferritin 209 ng/mL (8-252) 10/27/21 12:05 Total Bilirubin 0.10 mg/dL (0.2-1.0) L 10/29/21 04:46 AST 21 Units/L (15-37) 10/29/21 04:46 ALT 43 Units/L (12-78) 10/29/21 04:46 Alkaline Phosphatase 61 Units/L (46-116) 10/29/21 04:46 Troponin I < 0.02 ng/mL (0-1.5) 10/27/21 23:47 C-Reactive Protein 54.10 mg/L (0-3.0) H 10/29/21 04:46 B-Natriuretic Peptide 98.3 pg/mL (0-79) H 10/29/21 04:46 Total Protein 6.5 g/dL (6.4-8.2) 10/29/21 04:46 Albumin 2.8 g/dL (3.4-5.0) L 10/29/21 04:46 Globulin 3.7 g/dL (2.5-4.5) 10/29/21 04:46 Albumin/Globulin Ratio 0.8 Ratio (1.1-2.1) L 10/29/21 04:46 SARS CoV-2 RNA Rapid URBANO Positive (NEGATIVE) A 10/27/21 16:13 - Plan (1) Bronchitis due to COVID-19 virus Status: Acute Plan: SUPPLEMENTAL OXYGEN, NORMAL SALINE AT KVO, REMDESIVIR 100MG IV DAILY, ASCORBIC ACID 1500MG IV Q6H, ALBUTEROL NEBS Q6H, PULMICORT NEBS BID, TESSALON PERLES TID PRN, FLUVOXAMINE 50MG PO BID, SOLU-MEDROL 80MG IV Q8H, IVERMECTIN, ZOFRAN 4MG IV Q4H PRN, AND ZINC SULFATE 220MG PO DAILY. (2) COPD exacerbation Status: Acute
[2021-10-29] MEDS: TYLENOL 325 MG TAB PO PRN (14:42)
[2021-10-29] MEDS: K-DUR TAB 20 MEQ PO PRN (17:03)
[2021-10-29] MEDS ORDERED: COZAAR PO SCH (21:00)
[2021-10-29] MEDS: ROBITUSSIN DM PO PRN (21:15)
[2021-10-29] MEDS: SNACK - Diabetic Appropriate PO SCH (21:16)
[2021-10-29] MEDS: COZAAR PO SCH (21:16)
[2021-10-29] MEDS: TUSSIONEX PENNKINETIC SUSP PO PRN (21:17)
[2021-10-30] MEDS: ASCORBIC ACID INJ MULTI-DOSE VIAL 1,500 MG in NS 50 ML IV 50 ML IV SCH ×4 (03:38→20:30)
[2021-10-30 05:28] LABS: BASOPHILS % (AUTO) 0.1 % (0.2-1.0); HEMATOCRIT 29.6 % (36.0-47.0); HEMOGLOBIN 10.4 g/dL (12.0-16.0); LYMPHOCYTES # (AUTO) 0.9 X10^3/uL (1.3-2.9); LYMPHOCYTES % (AUTO) 9.2 % (21.0-51.0); MEAN CORPUSCULAR HEMOGLOBIN 31.9 pg (27.0-34.0); MEAN CORPUSCULAR HGB CONC 35.2 g/dL (33.0-35.0); MEAN CORPUSCULAR VOLUME 90.5 fL (80.0-100.0); MONOCYTES # (AUTO) 0.6 x10^3/uL (0.3-0.8); NEUTROPHILS # (AUTO) 8.6 x10^3/uL (2.2-4.8); NEUTROPHILS % (AUTO) 84.7 % (42.0-75.0); PLATELET COUNT 307 X10^3/uL (150.0-450.0); RED BLOOD COUNT 3.27 X10^6/uL (3.5-5.4); RED CELL DISTRIBUTION WIDTH 13.6 % (11.6-16.5); WHITE BLOOD COUNT 10.2 X10^3/uL (3.6-10.0)
[2021-10-30 05:44] LABS: ALANINE AMINOTRANSFERASE 62 Units/L (12-78); ALKALINE PHOSPHATASE 60 Units/L (46-116); ASPARTATE AMINO TRANSFERASE 40 Units/L (15-37); BLOOD UREA NITROGEN 18 mg/dL (7-18); CALCIUM 8.4 mg/dL (8.5-10.1); CARBON DIOXIDE 32.2 mmol/L (21-32); CHLORIDE 102 mmol/L (98-107); COR CA(FOR HYPOALB) 9.2 mg/dL (8.5-10.1); COR NA(FOR HYPERGLY) 141 mmol/L (136-145); SODIUM 139 mmol/L (136-145); TOTAL PROTEIN 6.6 g/dL (6.4-8.2); eGFR NON BLACK RACES > 60 (>60)
[2021-10-30] MEDS: XOPENEX 1.25 MG/3 ML NEBULE NEB SCH ×4 (05:53→20:20)
--- NOTE | 2021-10-30 05:57 | RAD ---
PROCEDURE: Chest X-ray 1 View .HISTORY: COVID+ .TECHNIQUE: AP view .COMPARISON: 10/29/2021.TECHNICAL QUALITY: Satisfactory .FINDINGS:Normal size heart .Mediastinum and hilar regions show no masses or lymphadenopathy .Normal central vascularity .Unchanged hyperlucency and hyper expansion of the lungs. No other definite abnormality identified.No acute bony abnormality .IMPRESSION:COPD. r.br
[2021-10-30] MEDS: SYNTHROID 25 mcg TAB PO SCH (06:01)
[2021-10-30] MEDS: SOLU-Medrol 40 MG VIAL IVP SCH ×3 (06:01→22:14)
[2021-10-30] MEDS: K-DUR TAB 20 MEQ PO PRN (06:14)
[2021-10-30] MEDS: NovoLIN R (or HumuLIN R) SUBCUT PRN ×4 (06:15→20:41)
[2021-10-30] MEDS: ROBITUSSIN DM PO PRN ×3 (06:23→20:31)
[2021-10-30] MEDS: LOVENOX INJ 30 MG SYR SC SCH ×2 (08:26→20:31)
[2021-10-30] MEDS: PROTONIX TAB 40 MG PO SCH (08:27)
[2021-10-30] MEDS: ZINC SULFATE PO SCH (08:29)
[2021-10-30] MEDS: FLUVOXAMINE MALEATE PO SCH ×2 (08:29→20:30)
[2021-10-30] MEDS: IVERMECTIN PO SCH (08:29)
[2021-10-30] MEDS: ASPIRIN 81 MG CHEWTAB PO SCH (08:30)
[2021-10-30] MEDS: SINGULAIR TAB 10 MG PO SCH (08:30)
[2021-10-30] MEDS: PULMICORT NEB TX 0.5 MG NEB SCH ×2 (08:42→20:20)
[2021-10-30] MEDS: TUSSIONEX PENNKINETIC SUSP PO PRN ×2 (09:23→20:31)
[2021-10-30] MEDS: REMDESIVIR 100 MG in NS 250 ML IV 250 ML IV SCH (09:23)
[2021-10-30] MEDS: POTASSIUM CHLORIDE LIQ 20 MEQ UDC PO PRN (09:29)
--- NOTE | 2021-10-30 18:35 | PCM.PROG ---
Progress Note Progress Note for Day of Date of Exam: 10/30/21 Subjective Subjective: PT IS A 61 YEAR OLD FEMALE ADMITTED FOR TREATMENT OF BRONCHITIS DUE TO COVID-19, HYPOXIA, AND COPD. THIS MORNING SHE REPORTS IMPROVEMENT IN HER SYMPTOMS. SHE IS CURRENTLY REQUIRING SUPPLEMENTAL OXYGEN VIA NASAL CANNULA AT 4 LPM THIS MORNING, WHICH IS CLOSE TO HER BASELINE REQUIREMENT. PATIENT REPORTS THAT SHE USUALLY USES OXYGEN AT 3-3.5 LPM AT HOME. ON EXAMINATION, HEART IS REGULAR IN RATE AND RHYTHM. BILATERAL LUNGS ARE NOTED WITH IMPROVED WHEEZING THROUGHOUT. ABDOMEN IS ROUND, SOFT, AND NON-TENDER WITH NORMAL BOWEL SOUNDS NOTED IN ALL QUADRANTS. LABS/IMAGING WAS OBTAINED: WBC 10.2, HGB 10.4, PLT 307, NA 139, K 3.2, CREATININE 0.60, GLUCOSE 178, CRP 24, BNP 152, BLOOD CULTURE NGTD, SPUTUM CULTURES PRELIM GRAM NEGATIVE RODS. A CHEST XRAY WAS OBTAINED AND REVEALED: Unchanged COPD with no other evidence of active disease. SHE IS CURRENTLY RECEIVING NORMAL SALINE AT KVO, REMDESIVIR 100MG IV DAILY, ASCORBIC ACID 1500MG IV Q6H, ALBUTEROL NEBS Q6H, PULMICORT NEBS BID, TESSALON PERLES TID PRN, FLUVOXAMINE 50MG PO BID, SOLU-MEDROL 80MG IV Q8H, IVERMECTIN, ZOFRAN 4MG IV Q4H PRN, AND ZINC SULFATE 220MG PO DAILY. WILL ADD ANTIBIOTICS LEVAQUIN. RESUMED HOME MEDICATIONS, OTHERWISE, WE PLAN TO FOLLOW UP WITH AM LABS AND CHEST XRAY AND CONTINUE TO MONITOR. TIME SPENT ON CLINICAL ASSESSMENT, REVIEWING LABS AND IMAGING, DECISION MAKING, AND DOCUMENTATION GREATER THAN 45 MINUTES. Past Medical Family Social History Past Med/Fam/Surg Hx: No changes since H&P Allergies: Allergies No Known Allergies [NKA] Allergy (Verified 03/15/19 09:32) Review of Systems ROS: No change since H&P Vital Signs and I&O's Vital Signs: Temperature 98.2 F Pulse Rate 66 Respiratory Rate 23 Blood Pressure [Right Arm] 134/81 Blood Pressure [Left Arm] 144/67 Blood Pressure 177/85 O2 Sat by Pulse Oximetry 94 Intake and Output: Intake & Output 10/27/21 10/28/21 10/29/21 10/30/21 23:59 23:59 23:59 23:59 Intake Total 970 / 970 1346 / 1346 2021 Output Total 2450 / 2450 300 / 300 Balance 970 / 970 -1104 / -1104 1721 Physical Exam Oriented: Normal Eyes: Normal Ear: Normal Nose: Normal Throat: Normal Respiratory: Generalized and Rales Cardiovascular: Normal : Normal Auscultation: Bowel Sounds: Normal Tenderness: Normal Skin: Normal Musculoskeletal: Normal Psychiatric: Normal Mood Description: Calm Affect: Normal Speech Pattern: Clear and Appropriate Laboratory and Diagnostics Result Diagrams: 10/30/21 04:20 10/30/21 11:36 Labs: 10/28/21 10:08 Sputum - Expectorated Sputum Sputum Culture - Preliminary 10/28/21 10:08 Sputum - Expectorated Sputum - Final 10/27/21 12:07 Blood Blood Culture - Preliminary 10/27/21 12:05 Blood Blood Culture - Preliminary Laboratory WBC 10.2 X10^3/uL (3.6-10.0) H 10/30/21 04:20 RBC 3.27 X10^6/uL (3.5-5.4) L 10/30/21 04:20 Hgb 10.4 g/dL (12.0-16.0) L 10/30/21 04:20 Hct 29.6 % (36.0-47.0) L 10/30/21 04:20 MCV 90.5 fL (80.0-100.0) 10/30/21 04:20 MCH 31.9 pg (27.0-34.0) 10/30/21 04:20 MCHC 35.2 g/dL (33.0-35.0) H 10/30/21 04:20 RDW 13.6 % (11.6-16.5) 10/30/21 04:20 Plt Count 307 X10^3/uL (150.0-450.0) 10/30/21 04:20 MPV 8.0 fL (7.4-11.0) 10/30/21 04:20 Neut % (Auto) 84.7 % (42.0-75.0) H 10/30/21 04:20 Lymph % (Auto) 9.2 % (21.0-51.0) L 10/30/21 04:20 [place] % (Auto) 6.0 % (0.0-13.0) 10/30/21 04:20 Eos % (Auto) 0.0 % (0.9-2.9) L 10/30/21 04:20 Baso % (Auto) 0.1 % (0.2-1.0) L 10/30/21 04:20 Neut # (Auto) 8.6 x10^3/uL (2.2-4.8) H 10/30/21 04:20 Lymph # (Auto) 0.9 X10^3/uL (1.3-2.9) L 10/30/21 04:20 [place] # (Auto) 0.6 x10^3/uL (0.3-0.8) 10/30/21 04:20 Eos # (Auto) 0.0 x10^3/uL (0.0-0.2) 10/30/21 04:20 Baso # (Auto) 0.0 X10^3/uL (0.0-0.1) 10/30/21 04:20 Absolute Nucleated RBC 0.0 /100WBC 10/30/21 04:20 D-Dimer 1.31 ug/ml (0.0-0.57) H* 10/27/21 12:05 Sample Site Lbra 10/29/21 05:39 ABG pH 7.470 (7.35-7.45) H 10/29/21 05:39 ABG pCO2 45.0 mmHg (35.0-45.0) 10/29/21 05:39 ABG pO2 62.0 mmHg (80.0-100.0) L 10/29/21 05:39 ABG HCO3 32.8 mmol/L (22-26) H* 10/29/21 05:39 ABG O2 Saturation 93.0 % (90-100) 10/29/21 05:39 ABG Base Excess 8.1 mmol/L (-2.0-2.0) H 10/29/21 05:39 Naveen Test Na 10/29/21 05:39 A-a Gradient 138.0 mmHg 10/29/21 05:39 FiO2 36.0 10/29/21 05:39 Blood Gas Comments Ana abg well-mtf 10/29/21 05:39 Sodium 139 mmol/L (136-145) 10/30/21 04:20 Corrected Sodium 141 mmol/L (136-145) 10/30/21 04:20 Potassium 3.7 mmol/L (3.5-5.1) 10/30/21 11:36 Chloride 102 mmol/L (98-107) 10/30/21 04:20 Carbon Dioxide 32.2 mmol/L (21-32) H 10/30/21 04:20 BUN 18 mg/dL (7-18) 10/30/21 04:20 Creatinine 0.60 mg/dL (0.55-1.02) 10/30/21 04:20 Est GFR (MDRD) Af Amer > 60 (>60) 10/30/21 04:20 Est GFR (MDRD) Non-Af > 60 (>60) 10/30/21 04:20 Glucose 178 mg/dL (65-99) H 10/30/21 04:20 POC Glucose (mg/dL) 161 mg/dL (65-99) H 10/30/21 16:09 Calcium 8.4 mg/dL (8.5-10.1) L 10/30/21 04:20 Corrected Calcium 9.2 mg/dL (8.5-10.1) 10/30/21 04:20 Magnesium 2.1 mg/dL (1.7-2.9) 10/29/21 04:46 Ferritin 209 ng/mL (8-252) 10/27/21 12:05 Total Bilirubin 0.20 mg/dL (0.2-1.0) 10/30/21 04:20 AST 40 Units/L (15-37) H 10/30/21 04:20 ALT 62 Units/L (12-78) 10/30/21 04:20 Alkaline Phosphatase 60 Units/L (46-116) 10/30/21 04:20 Troponin I < 0.02 ng/mL (0-1.5) 10/27/21 23:47 C-Reactive Protein 24.90 mg/L (0-3.0) H 10/30/21 04:20 B-Natriuretic Peptide 152 pg/mL (0-79) H 10/30/21 04:20 Total Protein 6.6 g/dL (6.4-8.2) 10/30/21 04:20 Albumin 3.0 g/dL (3.4-5.0) L 10/30/21 04:20 Globulin 3.6 g/dL (2.5-4.5) 10/30/21 04:20 Albumin/Globulin Ratio 0.8 Ratio (1.1-2.1) L 10/30/21 04:20 SARS CoV-2 RNA Rapid URBANO Positive (NEGATIVE) A 10/27/21 16:13 Plan (1) Bronchitis due to COVID-19 virus: Status: Acute Plan: SUPPLEMENTAL OXYGEN, NORMAL SALINE AT KVO, REMDESIVIR 100MG IV DAILY, ASCORBIC ACID 1500MG IV Q6H, ALBUTEROL NEBS Q6H, PULMICORT NEBS BID, TESSALON PERLES TID PRN, FLUVOXAMINE 50MG PO BID, SOLU-MEDROL 80MG IV Q8H, IVERMECTIN, ZOFRAN 4MG IV Q4H PRN, AND ZINC SULFATE 220MG PO DAILY. (2) COPD exacerbation: Status: Acute
[2021-10-30] MEDS: LEVAQUIN TAB 750 MG PO SCH (20:30)
[2021-10-30] MEDS: COZAAR PO SCH (20:30)
[2021-10-30] MEDS: SNACK - Diabetic Appropriate PO SCH (20:30)
[2021-10-31] MEDS: NS 1,000 ML IV 1,000 ML IV SCH ×2 (03:30→06:00)
[2021-10-31] MEDS: ASCORBIC ACID INJ MULTI-DOSE VIAL 1,500 MG in NS 50 ML IV 50 ML IV SCH ×4 (03:30→20:36)
[2021-10-31 05:27] LABS: BASOPHILS % (AUTO) 0.1 % (0.2-1.0); HEMATOCRIT 32.4 % (36.0-47.0); HEMOGLOBIN 10.9 g/dL (12.0-16.0); LYMPHOCYTES # (AUTO) 0.6 X10^3/uL (1.3-2.9); LYMPHOCYTES % (AUTO) 7.4 % (21.0-51.0); MEAN CORPUSCULAR HEMOGLOBIN 30.5 pg (27.0-34.0); MEAN CORPUSCULAR HGB CONC 33.7 g/dL (33.0-35.0); MEAN CORPUSCULAR VOLUME 90.6 fL (80.0-100.0); MEAN PLATELET VOLUME 7.9 fL (7.4-11.0); MONOCYTES # (AUTO) 0.6 x10^3/uL (0.3-0.8); MONOCYTES % (AUTO) 6.7 % (0.0-13.0); NEUTROPHILS # (AUTO) 7.4 x10^3/uL (2.2-4.8); NEUTROPHILS % (AUTO) 85.8 % (42.0-75.0); PLATELET COUNT 340 X10^3/uL (150.0-450.0); RED BLOOD COUNT 3.57 X10^6/uL (3.5-5.4); RED CELL DISTRIBUTION WIDTH 13.3 % (11.6-16.5); WHITE BLOOD COUNT 8.7 X10^3/uL (3.6-10.0)
[2021-10-31] MEDS: XOPENEX 1.25 MG/3 ML NEBULE NEB SCH ×3 (05:40→20:55)
[2021-10-31] MEDS: ROBITUSSIN DM PO PRN ×2 (05:40→19:57)
[2021-10-31 05:51] LABS: ALANINE AMINOTRANSFERASE 86 Units/L (12-78); ALBUMIN 3.1 g/dL (3.4-5.0); ALKALINE PHOSPHATASE 61 Units/L (46-116); ASPARTATE AMINO TRANSFERASE 35 Units/L (15-37); BLOOD UREA NITROGEN 17 mg/dL (7-18); CALCIUM 8.4 mg/dL (8.5-10.1); CARBON DIOXIDE 31.4 mmol/L (21-32); CHLORIDE 101 mmol/L (98-107); COR CA(FOR HYPOALB) 9.1 mg/dL (8.5-10.1); COR NA(FOR HYPERGLY) 142 mmol/L (136-145); CREATININE 0.62 mg/dL (0.55-1.02); MAGNESIUM 2.2 mg/dL (1.7-2.9); SODIUM 140 mmol/L (136-145); TOTAL PROTEIN 6.7 g/dL (6.4-8.2); eGFR NON BLACK RACES > 60 (>60)
[2021-10-31] MEDS: K-DUR TAB 20 MEQ PO PRN (06:00)
[2021-10-31] MEDS: SOLU-Medrol 40 MG VIAL IVP SCH ×3 (06:00→21:36)
[2021-10-31] MEDS: NovoLIN R (or HumuLIN R) SUBCUT PRN ×3 (06:01→16:44)
[2021-10-31] MEDS: SYNTHROID 25 mcg TAB PO SCH (06:01)
--- NOTE | 2021-10-31 06:17 | RAD ---
HISTORYSOB HX: HTN, COPD SX: HYSTERECTOMYSTUDYCHEST, 1 [id number]/2022 isFINDINGSThe trachea is midline. The cardiac silhouette is unremarkable. Chronic interstitial lung changes with flattening of the diaphragm consistent with COPD is observedThe lungs are clear without focal infiltrate or effusion. The bony thorax is unremarkable.IMPRESSIONCOPD.No active cardiopulmonary disease.Electronically signed by: Randall Cosby (Oct 31, 2021 06:15:18)
[2021-10-31] MEDS: TUSSIONEX PENNKINETIC SUSP PO PRN ×2 (08:55→21:35)
[2021-10-31] MEDS: PULMICORT NEB TX 0.5 MG NEB SCH ×2 (09:00→20:56)
[2021-10-31] MEDS: FLUVOXAMINE MALEATE PO SCH ×2 (09:51→20:37)
[2021-10-31] MEDS: PROTONIX TAB 40 MG PO SCH (09:51)
[2021-10-31] MEDS: IVERMECTIN PO SCH (09:51)
[2021-10-31] MEDS: ASPIRIN 81 MG CHEWTAB PO SCH (09:51)
[2021-10-31] MEDS: REMDESIVIR 100 MG in NS 250 ML IV 250 ML IV SCH (09:55)
[2021-10-31] MEDS: LOVENOX INJ 30 MG SYR SC SCH ×2 (09:55→20:37)
[2021-10-31] MEDS: SINGULAIR TAB 10 MG PO SCH (09:55)
[2021-10-31] MEDS: ZINC SULFATE PO SCH (09:56)
[2021-10-31] MEDS: POTASSIUM CHLORIDE LIQ 20 MEQ UDC PO PRN (10:00)
[2021-10-31] MEDS: LEVAQUIN TAB 750 MG PO SCH (10:15)
--- NOTE | 2021-10-31 10:47 | PCM.PROG ---
Progress Note Progress Note for Day of Date of Exam: 10/31/21 Subjective Subjective: PT IS A 61 YEAR OLD FEMALE ADMITTED FOR TREATMENT OF BRONCHITIS DUE TO COVID-19, HYPOXIA, AND COPD. THIS MORNING SHE APPEARS TO BE WORSE THAN YESTERDAY, HAVING MORE SHORTNESS OF BREATH, COUGH, AND WHEEZING. SHE ALSO FEELS MORE CONGESTION. SHE IS CURRENTLY REQUIRING SUPPLEMENTAL OXYGEN VIA NASAL CANNULA AT 4 LPM, WHICH IS CLOSE TO HER BASELINE REQUIREMENT. PATIENT REPORTS THAT SHE USUALLY USES OXYGEN AT 3-3.5 LPM AT HOME. ON EXAMINATION, HEART IS REGULAR IN RATE AND RHYTHM. BILATERAL LUNGS ARE NOTED WITH DIFFUSE WHEEZING THROUGHOUT. ABDOMEN IS ROUND, SOFT, AND NON-TENDER WITH NORMAL BOWEL SOUNDS NOTED IN ALL QUADRANTS. LABS/IMAGING WAS OBTAINED: WBC 8.7, HGB 10.9, PLT 340, NA 140, K 3.2, CREATININE 0.62, GLUCOSE 172, CRP 24>14, BLOOD CULTURE NGTD, SPUTUM CULTURES PRELIM GRAM NEGATIVE RODS . A CHEST XRAY WAS OBTAINED AND REVEALED: Unchanged COPD with no other evidence of active disease. SHE IS CURRENTLY RECEIVING NORMAL SALINE AT KVO, REMDESIVIR 100MG IV DAILY, ASCORBIC ACID 1500MG IV Q6H, ALBUTEROL NEBS Q6H, PULMICORT NEBS BID, TESSALON PERLES TID PRN, FLUVOXAMINE 50MG PO BID, SOLU-MEDROL 80MG IV Q8H, IVERMECTIN, ZOFRAN 4MG IV Q4H PRN, AND ZINC SULFATE 220MG PO DAILY. ANTIBIOTICS: LEVAQUIN. WILL ADD SMART VEST TODAY. OTHERWISE, WILL CONTINUE WITH AM LABS AND CHEST XRAY AND CONTINUE TO MONITOR. TIME SPENT ON CLINICAL ASSESSMENT, REVIEWING LABS AND IMAGING, DECISION MAKING, AND DOCUMENTATION GREATER THAN 45 MINUTES. Past Medical Family Social History Past Med/Fam/Surg Hx: No changes since H&P Allergies: Allergies No Known Allergies [NKA] Allergy (Verified 03/15/19 09:32) Review of Systems ROS: No change since H&P Vital Signs and I&O's Vital Signs: Temperature 97.9 F Pulse Rate 95 Respiratory Rate 20 Blood Pressure [Right Arm] 134/81 Blood Pressure [Left Arm] 144/67 Blood Pressure 178/87 O2 Sat by Pulse Oximetry 94 Intake and Output: Intake & Output 10/28/21 10/29/21 10/30/21 10/31/21 23:59 23:59 23:59 23:59 Intake Total 1346 / 1346 2021 2634 / 2634 1311 / 1311 Output Total 2450 / 2450 300 / 300 Balance -1104 / -1104 1722 / 172 2634 / 2634 1311 / 1311 Physical Exam Oriented: Normal Eyes: Normal Ear: Normal Nose: Normal Throat: Normal Respiratory: Generalized, Wheezes and Rales Cardiovascular: Normal : Normal Auscultation: Bowel Sounds: Normal Tenderness: Normal Skin: Normal Musculoskeletal: Normal Psychiatric: Normal Mood Description: Calm Affect: Normal Speech Pattern: Clear and Appropriate Laboratory and Diagnostics Result Diagrams: 10/31/21 04:21 10/31/21 07:40 Labs: 10/28/21 10:08 Sputum - Expectorated Sputum Sputum Culture - Preliminary 10/28/21 10:08 Sputum - Expectorated Sputum - Final 10/27/21 12:07 Blood Blood Culture - Preliminary 10/27/21 12:05 Blood Blood Culture - Preliminary Laboratory WBC 8.7 X10^3/uL (3.6-10.0) 10/31/21 04:21 RBC 3.57 X10^6/uL (3.5-5.4) 10/31/21 04:21 Hgb 10.9 g/dL (12.0-16.0) L 10/31/21 04:21 Hct 32.4 % (36.0-47.0) L 10/31/21 04:21 MCV 90.6 fL (80.0-100.0) 10/31/21 04:21 MCH 30.5 pg (27.0-34.0) 10/31/21 04:21 MCHC 33.7 g/dL (33.0-35.0) 10/31/21 04:21 RDW 13.3 % (11.6-16.5) 10/31/21 04:21 Plt Count 340 X10^3/uL (150.0-450.0) 10/31/21 04:21 MPV 7.9 fL (7.4-11.0) 10/31/21 04:21 Neut % (Auto) 85.8 % (42.0-75.0) H 10/31/21 04:21 Lymph % (Auto) 7.4 % (21.0-51.0) L 10/31/21 04:21 [place] % (Auto) 6.7 % (0.0-13.0) 10/31/21 04:21 Eos % (Auto) 0.0 % (0.9-2.9) L 10/31/21 04:21 Baso % (Auto) 0.1 % (0.2-1.0) L 10/31/21 04:21 Neut # (Auto) 7.4 x10^3/uL (2.2-4.8) H 10/31/21 04:21 Lymph # (Auto) 0.6 X10^3/uL (1.3-2.9) L 10/31/21 04:21 [place] # (Auto) 0.6 x10^3/uL (0.3-0.8) 10/31/21 04:21 Eos # (Auto) 0.0 x10^3/uL (0.0-0.2) 10/31/21 04:21 Baso # (Auto) 0.0 X10^3/uL (0.0-0.1) 10/31/21 04:21 Absolute Nucleated RBC 0.0 /100WBC 10/31/21 04:21 D-Dimer 1.31 ug/ml (0.0-0.57) H* 10/27/21 12:05 Sample Site Lbra 10/29/21 05:39 ABG pH 7.470 (7.35-7.45) H 10/29/21 05:39 ABG pCO2 45.0 mmHg (35.0-45.0) 10/29/21 05:39 ABG pO2 62.0 mmHg (80.0-100.0) L 10/29/21 05:39 ABG HCO3 32.8 mmol/L (22-26) H* 10/29/21 05:39 ABG O2 Saturation 93.0 % (90-100) 10/29/21 05:39 ABG Base Excess 8.1 mmol/L (-2.0-2.0) H 10/29/21 05:39 Naveen Test Na 10/29/21 05:39 A-a Gradient 138.0 mmHg 10/29/21 05:39 FiO2 36.0 10/29/21 05:39 Blood Gas Comments Ana abg well-mtf 10/29/21 05:39 Sodium 140 mmol/L (136-145) 10/31/21 04:21 Corrected Sodium 142 mmol/L (136-145) 10/31/21 04:21 Potassium 3.2 mmol/L (3.5-5.1) L 10/31/21 07:40 Chloride 101 mmol/L (98-107) 10/31/21 04:21 Carbon Dioxide 31.4 mmol/L (21-32) 10/31/21 04:21 BUN 17 mg/dL (7-18) 10/31/21 04:21 Creatinine 0.62 mg/dL (0.55-1.02) 10/31/21 04:21 Est GFR (MDRD) Af Amer > 60 (>60) 10/31/21 04:21 Est GFR (MDRD) Non-Af > 60 (>60) 10/31/21 04:21 Glucose 172 mg/dL (65-99) H 10/31/21 04:21 POC Glucose (mg/dL) 154 mg/dL (65-99) H 10/30/21 20:09 Calcium 8.4 mg/dL (8.5-10.1) L 10/31/21 04:21 Corrected Calcium 9.1 mg/dL (8.5-10.1) 10/31/21 04:21 Magnesium 2.2 mg/dL (1.7-2.9) 10/31/21 04:21 Ferritin 209 ng/mL (8-252) 10/27/21 12:05 Total Bilirubin 0.20 mg/dL (0.2-1.0) 10/31/21 04:21 AST 35 Units/L (15-37) 10/31/21 04:21 ALT 86 Units/L (12-78) H 10/31/21 04:21 Alkaline Phosphatase 61 Units/L (46-116) 10/31/21 04:21 Troponin I < 0.02 ng/mL (0-1.5) 10/27/21 23:47 C-Reactive Protein 14.10 mg/L (0-3.0) H 10/31/21 04:21 B-Natriuretic Peptide 122 pg/mL (0-79) H 10/31/21 04:21 Total Protein 6.7 g/dL (6.4-8.2) 10/31/21 04:21 Albumin 3.1 g/dL (3.4-5.0) L 10/31/21 04:21 Globulin 3.6 g/dL (2.5-4.5) 10/31/21 04:21 Albumin/Globulin Ratio 0.9 Ratio (1.1-2.1) L 10/31/21 04:21 SARS CoV-2 RNA Rapid URBANO Positive (NEGATIVE) A 10/27/21 16:13 Plan (1) Bronchitis due to COVID-19 virus: Status: Acute Plan: SUPPLEMENTAL OXYGEN, NORMAL SALINE AT KVO, REMDESIVIR 100MG IV DAILY, ASCORBIC ACID 1500MG IV Q6H, ALBUTEROL NEBS Q6H, PULMICORT NEBS BID, TESSALON PERLES TID PRN, FLUVOXAMINE 50MG PO BID, SOLU-MEDROL 80MG IV Q8H, IVERMECTIN, ZOFRAN 4MG IV Q4H PRN, AND ZINC SULFATE 220MG PO DAILY. (2) COPD exacerbation: Status: Acute
[2021-10-31] MEDS: SNACK - Diabetic Appropriate PO SCH (20:05)
[2021-10-31] MEDS: COZAAR PO SCH (20:37)
[2021-11-01] MEDS: ROBITUSSIN DM PO PRN ×2 (03:15→20:03)
[2021-11-01] MEDS: ASCORBIC ACID INJ MULTI-DOSE VIAL 1,500 MG in NS 50 ML IV 50 ML IV SCH ×4 (03:15→20:04)
[2021-11-01 05:33] LABS: BASOPHILS % (AUTO) 0.1 % (0.2-1.0); HEMATOCRIT 34.2 % (36.0-47.0); HEMOGLOBIN 11.7 g/dL (12.0-16.0); LYMPHOCYTES # (AUTO) 0.7 X10^3/uL (1.3-2.9); LYMPHOCYTES % (AUTO) 7.1 % (21.0-51.0); MEAN CORPUSCULAR HEMOGLOBIN 30.9 pg (27.0-34.0); MEAN CORPUSCULAR HGB CONC 34.1 g/dL (33.0-35.0); MEAN CORPUSCULAR VOLUME 90.5 fL (80.0-100.0); MEAN PLATELET VOLUME 7.7 fL (7.4-11.0); MONOCYTES # (AUTO) 0.7 x10^3/uL (0.3-0.8); MONOCYTES % (AUTO) 7.6 % (0.0-13.0); NEUTROPHILS % (AUTO) 85.2 % (42.0-75.0); PLATELET COUNT 393 X10^3/uL (150.0-450.0); RED BLOOD COUNT 3.78 X10^6/uL (3.5-5.4); RED CELL DISTRIBUTION WIDTH 13.1 % (11.6-16.5); WHITE BLOOD COUNT 9.4 X10^3/uL (3.6-10.0)
[2021-11-01 05:35] LABS: ALANINE AMINOTRANSFERASE 89 Units/L (12-78); ALBUMIN 3.2 g/dL (3.4-5.0); ALKALINE PHOSPHATASE 67 Units/L (46-116); ASPARTATE AMINO TRANSFERASE 32 Units/L (15-37); BLOOD UREA NITROGEN 14 mg/dL (7-18); CALCIUM 8.4 mg/dL (8.5-10.1); CARBON DIOXIDE 32.2 mmol/L (21-32); CHLORIDE 100 mmol/L (98-107); COR NA(FOR HYPERGLY) 142 mmol/L (136-145); CREATININE 0.74 mg/dL (0.55-1.02); SODIUM 140 mmol/L (136-145); TOTAL PROTEIN 6.7 g/dL (6.4-8.2); eGFR NON BLACK RACES > 60 (>60)
[2021-11-01] MEDS: SOLU-Medrol 40 MG VIAL IVP SCH ×3 (05:40→21:47)
[2021-11-01] MEDS: SYNTHROID 25 mcg TAB PO SCH (05:41)
[2021-11-01] MEDS: XOPENEX 1.25 MG/3 ML NEBULE NEB SCH ×3 (06:04→20:49)
[2021-11-01 06:09] LABS: PLATELET MORPHOLOGY COMMENT NORMAL (NORMAL)
[2021-11-01] MEDS: POTASSIUM CHLORIDE LIQ 20 MEQ UDC PO PRN (06:32)
[2021-11-01] MEDS: NS 1,000 ML IV 1,000 ML IV SCH (06:32)
--- NOTE | 2021-11-01 06:40 | RAD ---
CHEST, 1 VIEWHISTORY: SOBStudy: AP view of the chest.Comparison:NoneFindings:The cardiomediastinal silhouette is normal. No focal consolidations, pleural effusions or pneumothorax. Osseous structures demonstrate no acute abnormality. Bilateral hyperexpansion and interstitial prominence.IMPRESSION:1. No acute cardiopulmonary process.2. Findings of COPD.Electronically signed by: FILEMON ALEXANDER (Nov 01, 2021 06:38:32)
[2021-11-01] MEDS: ASPIRIN 81 MG CHEWTAB PO SCH (08:56)
[2021-11-01] MEDS: IVERMECTIN PO SCH (08:56)
[2021-11-01] MEDS: FLUVOXAMINE MALEATE PO SCH ×2 (08:56→20:10)
[2021-11-01] MEDS: PROTONIX TAB 40 MG PO SCH (08:57)
[2021-11-01] MEDS: ZINC SULFATE PO SCH (08:57)
[2021-11-01] MEDS: SINGULAIR TAB 10 MG PO SCH (08:57)
[2021-11-01] MEDS: LOVENOX INJ 30 MG SYR SC SCH ×2 (08:57→20:04)
[2021-11-01] MEDS: LEVAQUIN TAB 750 MG PO SCH (08:58)
[2021-11-01] MEDS: PULMICORT NEB TX 0.5 MG NEB SCH ×2 (09:33→20:49)
--- NOTE | 2021-11-01 10:28 | PCM.PROG ---
Progress Note Progress Note for Day of Date of Exam: 11/01/21 Subjective Subjective: PT IS A 61 YEAR OLD FEMALE ADMITTED FOR TREATMENT OF BRONCHITIS DUE TO COVID-19, HYPOXIA, AND COPD. SHE REPORTS FEELING SOME IMPROVEMENT IN HER BREATHING COMPARED TO YESTERDAY. SHE WAS ABLE TO COUGH UP SOME SPUTUM AFTER USING SMART VEST. SHE IS CURRENTLY REQUIRING SUPPLEMENTAL OXYGEN VIA NASAL CANNULA AT 5 LPM. BASELINE HOME OXYGEN AT 3-3.5 LPM. ON EXAMINATION, HEART IS REGULAR IN RATE AND RHYTHM. BILATERAL LUNGS ARE NOTED WITH DIFFUSE WHEEZING THROUGHOUT. ABDOMEN IS ROUND, SOFT, AND NON-TENDER WITH NORMAL BOWEL SOUNDS NOTED IN ALL QUADRANTS. LABS/IMAGING WAS OBTAINED: WBC 9.4, HGB 11.7, PLT 393, NA 140, K 3.5, CREATININE 0.74, GLUCOSE 178, CRP 7.9, BLOOD CULTURE NGTD, SPUTUM CULTURES POSITIVE FOR BURKHOLDERIA CEPACIA SUSCEPTIBLE TO LEVAQUIN . A CHEST XRAY WAS OBTAINED AND REVEALED: Unchanged COPD with no other evidence of active disease. SHE IS CURRENTLY RECEIVING NORMAL SALINE AT KVO, REMDESIVIR 100MG IV DAILY, ASCORBIC ACID 1500MG IV Q6H, ALBUTEROL NEBS Q6H, PULMICORT NEBS BID, TESSALON PERLES TID PRN, FLUVOXAMINE 50MG PO BID, SOLU-MEDROL 80MG IV Q8H, IVERMECTIN, ZOFRAN 4MG IV Q4H PRN, AND ZINC SULFATE 220MG PO DAILY. ANTIBIOTICS: LEVAQUIN. WILL DECREASE SOLUMEDROL TO 40MG Q8H. OTHERWISE, WILL CONTINUE WITH AM LABS AND CHEST XRAY AND CONTINUE TO MONITOR. TIME SPENT ON CLINICAL ASSESSMENT, REVIEWING LABS AND IMAGING, DECISION MAKING, AND DOCUMENTATION GREATER THAN 45 MINUTES. Past Medical Family Social History Past Med/Fam/Surg Hx: No changes since H&P Allergies: Allergies No Known Allergies [NKA] Allergy (Verified 03/15/19 09:32) Review of Systems ROS: No change since H&P Vital Signs and I&O's Vital Signs: Temperature 98.1 F Pulse Rate 80 Respiratory Rate 22 Blood Pressure [Right Arm] 134/81 Blood Pressure [Left Arm] 144/67 Blood Pressure 153/78 O2 Sat by Pulse Oximetry 92 Intake and Output: Intake & Output 10/29/21 10/30/21 10/31/21 11/01/21 23:59 23:59 23:59 23:59 Intake Total 2021 2634 / 2634 3806 / 3806 590 / 590 Output Total 300 / 300 Balance 1721 2634 / 2634 3806 / 3806 590 / 590 Physical Exam Oriented: Normal Eyes: Normal Ear: Normal Nose: Normal Throat: Normal Respiratory: Generalized, Wheezes and Rales Cardiovascular: Normal : Normal Auscultation: Bowel Sounds: Normal Tenderness: Normal Skin: Normal Musculoskeletal: Normal Psychiatric: Normal Mood Description: Calm Affect: Normal Speech Pattern: Clear and Appropriate Laboratory and Diagnostics Result Diagrams: 11/01/21 04:31 11/01/21 04:31 Labs: 10/28/21 10:08 Sputum - Expectorated 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 10/28/21 10:08 Sputum - Expectorated Sputum - Final 11/01/21 03:21 Sputum - Expectorated Sputum - Final 10/27/21 12:07 Blood Blood Culture - Preliminary 10/27/21 12:05 Blood Blood Culture - Preliminary Laboratory WBC 9.4 X10^3/uL (3.6-10.0) 11/01/21 04:31 RBC 3.78 X10^6/uL (3.5-5.4) 11/01/21 04:31 Hgb 11.7 g/dL (12.0-16.0) L 11/01/21 04:31 Hct 34.2 % (36.0-47.0) L 11/01/21 04:31 MCV 90.5 fL (80.0-100.0) 11/01/21 04:31 MCH 30.9 pg (27.0-34.0) 11/01/21 04:31 MCHC 34.1 g/dL (33.0-35.0) 11/01/21 04:31 RDW 13.1 % (11.6-16.5) 11/01/21 04:31 Plt Count 393 X10^3/uL (150.0-450.0) 11/01/21 04:31 Plt Count Comment Adequate (ADEQUATE) 11/01/21 04:31 MPV 7.7 fL (7.4-11.0) 11/01/21 04:31 Neut % (Auto) 85.2 % (42.0-75.0) H 11/01/21 04:31 Lymph % (Auto) 7.1 % (21.0-51.0) L 11/01/21 04:31 [place] % (Auto) 7.6 % (0.0-13.0) 11/01/21 04:31 Eos % (Auto) 0.0 % (0.9-2.9) L 11/01/21 04:31 Baso % (Auto) 0.1 % (0.2-1.0) L 11/01/21 04:31 Neut # (Auto) 8.0 x10^3/uL (2.2-4.8) H 11/01/21 04:31 Lymph # (Auto) 0.7 X10^3/uL (1.3-2.9) L 11/01/21 04:31 [place] # (Auto) 0.7 x10^3/uL (0.3-0.8) 11/01/21 04:31 Eos # (Auto) 0.0 x10^3/uL (0.0-0.2) 11/01/21 04:31 Baso # (Auto) 0.0 X10^3/uL (0.0-0.1) 11/01/21 04:31 Absolute Nucleated RBC 0.1 /100WBC 11/01/21 04:31 Total Counted 100 11/01/21 04:31 Neutrophils % (Manual) 88 % (39-76) H 11/01/21 04:31 Lymphocytes % (Manual) 6 % (13-43) L 11/01/21 04:31 Monocytes % (Manual) 6 % (4-9) 11/01/21 04:31 Plt Morphology Comment Normal (NORMAL) 11/01/21 04:31 RBC Morphology Normal (NORMAL) 11/01/21 04:31 D-Dimer 1.31 ug/ml (0.0-0.57) H* 10/27/21 12:05 Sample Site Lbra 10/29/21 05:39 ABG pH 7.470 (7.35-7.45) H 10/29/21 05:39 ABG pCO2 45.0 mmHg (35.0-45.0) 10/29/21 05:39 ABG pO2 62.0 mmHg (80.0-100.0) L 10/29/21 05:39 ABG HCO3 32.8 mmol/L (22-26) H* 10/29/21 05:39 ABG O2 Saturation 93.0 % (90-100) 10/29/21 05:39 ABG Base Excess 8.1 mmol/L (-2.0-2.0) H 10/29/21 05:39 Naveen Test Na 10/29/21 05:39 A-a Gradient 138.0 mmHg 10/29/21 05:39 FiO2 36.0 10/29/21 05:39 Blood Gas Comments Ana abg well-mtf 10/29/21 05:39 Sodium 140 mmol/L (136-145) 11/01/21 04:31 Corrected Sodium 142 mmol/L (136-145) 11/01/21 04:31 Potassium 3.5 mmol/L (3.5-5.1) 11/01/21 04:31 Chloride 100 mmol/L (98-107) 11/01/21 04:31 Carbon Dioxide 32.2 mmol/L (21-32) H 11/01/21 04:31 BUN 14 mg/dL (7-18) 11/01/21 04:31 Creatinine 0.74 mg/dL (0.55-1.02) 11/01/21 04:31 Est GFR (MDRD) Af Amer > 60 (>60) 11/01/21 04:31 Est GFR (MDRD) Non-Af > 60 (>60) 11/01/21 04:31 Glucose 178 mg/dL (65-99) H 11/01/21 04:31 POC Glucose (mg/dL) 148 mg/dL (65-99) H 11/01/21 06:17 Calcium 8.4 mg/dL (8.5-10.1) L 11/01/21 04:31 Corrected Calcium 9.0 mg/dL (8.5-10.1) 11/01/21 04:31 Magnesium 2.2 mg/dL (1.7-2.9) 10/31/21 04:21 Ferritin 209 ng/mL (8-252) 10/27/21 12:05 Total Bilirubin 0.40 mg/dL (0.2-1.0) 11/01/21 04:31 AST 32 Units/L (15-37) 11/01/21 04:31 ALT 89 Units/L (12-78) H 11/01/21 04:31 Alkaline Phosphatase 67 Units/L (46-116) 11/01/21 04:31 Troponin I < 0.02 ng/mL (0-1.5) 10/27/21 23:47 C-Reactive Protein 7.90 mg/L (0-3.0) H 11/01/21 04:31 B-Natriuretic Peptide 57.2 pg/mL (0-79) 11/01/21 04:31 Total Protein 6.7 g/dL (6.4-8.2) 11/01/21 04:31 Albumin 3.2 g/dL (3.4-5.0) L 11/01/21 04:31 Globulin 3.5 g/dL (2.5-4.5) 11/01/21 04:31 Albumin/Globulin Ratio 0.9 Ratio (1.1-2.1) L 11/01/21 04:31 SARS CoV-2 RNA Rapid URBANO Positive (NEGATIVE) A 10/27/21 16:13 Plan (1) Bronchitis due to COVID-19 virus: Status: Acute Plan: SUPPLEMENTAL OXYGEN, NORMAL SALINE AT KVO, REMDESIVIR 100MG IV DAILY, ASCORBIC ACID 1500MG IV Q6H, ALBUTEROL NEBS Q6H, PULMICORT NEBS BID, TESSALON PERLES TID PRN, FLUVOXAMINE 50MG PO BID, SOLU-MEDROL 80MG IV Q8H, IVERMECTIN, ZOFRAN 4MG IV Q4H PRN, AND ZINC SULFATE 220MG PO DAILY. (2) COPD exacerbation: Status: Acute
[2021-11-01] MEDS: TUSSIONEX PENNKINETIC SUSP PO PRN (11:00)
[2021-11-01] MEDS: NovoLIN R (or HumuLIN R) SUBCUT PRN ×3 (11:51→20:03)
[2021-11-01] MEDS: SNACK - Diabetic Appropriate PO SCH (20:00)
[2021-11-01] MEDS: COZAAR PO SCH (20:10)
[2021-11-02] MEDS: TUSSIONEX PENNKINETIC SUSP PO PRN (00:18)
[2021-11-02] MEDS: NS 1,000 ML IV 1,000 ML IV SCH (02:28)
[2021-11-02] MEDS: ASCORBIC ACID INJ MULTI-DOSE VIAL 1,500 MG in NS 50 ML IV 50 ML IV SCH ×2 (02:38→08:11)
[2021-11-02 05:08] LABS: BASOPHILS % (AUTO) 0.2 % (0.2-1.0); HEMATOCRIT 33.9 % (36.0-47.0); HEMOGLOBIN 11.5 g/dL (12.0-16.0); LYMPHOCYTES # (AUTO) 0.9 X10^3/uL (1.3-2.9); LYMPHOCYTES % (AUTO) 7.5 % (21.0-51.0); MEAN CORPUSCULAR HEMOGLOBIN 30.7 pg (27.0-34.0); MEAN CORPUSCULAR HGB CONC 33.8 g/dL (33.0-35.0); MEAN CORPUSCULAR VOLUME 90.8 fL (80.0-100.0); MEAN PLATELET VOLUME 7.7 fL (7.4-11.0); MONOCYTES # (AUTO) 1.2 x10^3/uL (0.3-0.8); MONOCYTES % (AUTO) 9.8 % (0.0-13.0); NEUTROPHILS # (AUTO) 10.2 x10^3/uL (2.2-4.8); NEUTROPHILS % (AUTO) 82.5 % (42.0-75.0); PLATELET COUNT 434 X10^3/uL (150.0-450.0); RED BLOOD COUNT 3.74 X10^6/uL (3.5-5.4); RED CELL DISTRIBUTION WIDTH 13.3 % (11.6-16.5); WHITE BLOOD COUNT 12.4 X10^3/uL (3.6-10.0)
[2021-11-02 05:26] LABS: BLOOD UREA NITROGEN 14 mg/dL (7-18); CARBON DIOXIDE 31.5 mmol/L (21-32); CHLORIDE 102 mmol/L (98-107); CREATININE 0.65 mg/dL (0.55-1.02); SODIUM 143 mmol/L (136-145); eGFR NON BLACK RACES > 60 (>60)
[2021-11-02 05:27] LABS: ALANINE AMINOTRANSFERASE 74 Units/L (12-78); ALKALINE PHOSPHATASE 57 Units/L (46-116); ASPARTATE AMINO TRANSFERASE 26 Units/L (15-37); CALCIUM 7.9 mg/dL (8.5-10.1); COR CA(FOR HYPOALB) 8.7 mg/dL (8.5-10.1); COR NA(FOR HYPERGLY) 145 mmol/L (136-145); MAGNESIUM 2.6 mg/dL (1.7-2.9); TOTAL PROTEIN 6.3 g/dL (6.4-8.2)
[2021-11-02] MEDS: SYNTHROID 25 mcg TAB PO SCH (05:44)
[2021-11-02] MEDS: SOLU-Medrol 40 MG VIAL IVP SCH (05:44)
[2021-11-02] MEDS: NovoLIN R (or HumuLIN R) SUBCUT PRN (05:45)
[2021-11-02] MEDS: K-DUR TAB 20 MEQ PO PRN (05:45)
[2021-11-02 05:57] LABS: PLATELET MORPHOLOGY COMMENT NORMAL (NORMAL)
[2021-11-02] MEDS: XOPENEX 1.25 MG/3 ML NEBULE NEB SCH (05:58)
--- NOTE | 2021-11-02 07:10 | RAD ---
HISTORYSOB, COVID+STUDYCHEST, 1 [id number]/09/2022.TECHNIQUEAP view of the chestFINDINGSCardiac and mediastinal contours are within normal limits. Lungs are hyperexpanded with stable mild bibasilar interstitial opacity. No consolidation or segmental lung collapse. No definite pleural effusion or pneumothorax.IMPRESSIONNo significant change. Background of COPD.Electronically signed by: Indra Anderson (Nov 02, 2021 07:08:51)
[2021-11-02] MEDS: ASPIRIN 81 MG CHEWTAB PO SCH (08:13)
[2021-11-02] MEDS: LOVENOX INJ 30 MG SYR SC SCH (08:13)
[2021-11-02] MEDS: PROTONIX TAB 40 MG PO SCH (08:14)
[2021-11-02] MEDS: ZINC SULFATE PO SCH (08:14)
[2021-11-02] MEDS: LEVAQUIN TAB 750 MG PO SCH (08:14)
[2021-11-02] MEDS: FLUVOXAMINE MALEATE PO SCH (08:14)
[2021-11-02] MEDS: SINGULAIR TAB 10 MG PO SCH (08:14)
--- NOTE | 2021-11-02 08:42 | W.DIS.FURT ---
Summary of Discharge Discharge Summary of Date Date of Exam: 11/02/21 Admission Date Date of Admission: 10/27/21 Admission Diagnosis Patient Problems (Updated 11/02/21 @ 08:40 by Naga Morales) COVID (Acute) U07.1 Acute dyspnea (Acute) R06.00 Bronchitis due to COVID-19 virus (Acute) U07.1, J40 COPD exacerbation (Acute) J44.1 COPD (chronic obstructive pulmonary disease) (Chronic) J44.9 Hospital Course: PT IS A 61 YEAR OLD FEMALE ADMITTED FOR TREATMENT OF BRONCHITIS DUE TO COVID-19, HYPOXIA, AND COPD EXACERBATION. HER HOSPITAL/TREATMENT COURSE INCLUDED: NORMAL SALINE AT KVO, REMDESIVIR 100MG IV DAILY, ASCORBIC ACID 1500MG IV Q6H, ALBUTEROL NEBS Q6H, PULMICORT NEBS BID, TESSALON PERLES TID PRN, FLUVOXAMINE 50MG PO BID, SOLU-MEDROL, IVERMECTIN, ZOFRAN 4MG IV Q4H PRN, AND ZINC SULFATE 220MG PO DAILY. ANTIBIOTICS: LEVAQUIN. SUPPLEMENTAL OXYGEN WAS WEANED DOWN TO NASAL CANNULA AT 5 LPM. BASELINE HOME OXYGEN AT 3-3.5 LPM. SPUTUM CULTURES POSITIVE FOR BURKHOLDERIA CEPACIA SUSCEPTIBLE TO LEVAQUIN . PT RESPONDED WELL TO TREATMENTS. SHE WAS DISCHARGED IN STABLE CONDITION WITH RX LEVAQUIN, PREDNISONE TO COMPLETE COURSE. INSTRUCTED TO FOLLOW UP WITH PCP IN 3-5 DAYS. Vital Signs: Vital Signs (72 hours) 10/30/21 08:42 10/30/21 09:00 10/30/21 10:00 Temperature Pulse Rate 71 Respiratory Rate 21 23 Blood Pressure 174/84 180/84 O2 Sat by Pulse Oximetry 94 L 93 L 94 L 10/30/21 11:00 10/30/21 12:10 10/30/21 13:01 Temperature 98.1 F Pulse Rate 76 81 73 Respiratory Rate 22 18 20 Blood Pressure 175/82 175/82 136/65 O2 Sat by Pulse Oximetry 92 L 93 L 95 10/30/21 14:07 10/30/21 15:00 10/30/21 16:00 Temperature 98.2 F Pulse Rate 88 72 74 Respiratory Rate 25 H 22 22 Blood Pressure 195/94 177/85 187/89 O2 Sat by Pulse Oximetry 93 L 93 L 92 L 10/30/21 17:00 10/30/21 18:00 10/30/21 19:00 Temperature Pulse Rate 78 66 71 Respiratory Rate 27 H 23 22 Blood Pressure 194/89 177/85 172/86 O2 Sat by Pulse Oximetry 93 L 94 L 92 L 10/30/21 20:00 10/30/21 20:20 10/30/21 21:00 Temperature 97.9 F Pulse Rate 64 70 67 Respiratory Rate 23 21 Blood Pressure 194/90 174/69 O2 Sat by Pulse Oximetry 94 L 92 L 93 L 10/30/21 22:00 10/31/21 00:00 10/31/21 02:00 Temperature 98.5 F Pulse Rate 75 69 64 Respiratory Rate 21 20 20 Blood Pressure 135/81 158/74 183/83 O2 Sat by Pulse Oximetry 95 93 L 92 L 10/31/21 04:00 10/31/21 06:00 10/31/21 08:00 Temperature 97.9 F 98.1 F Pulse Rate 65 84 78 Respiratory Rate 20 20 18 Blood Pressure 161/74 178/87 161/78 O2 Sat by Pulse Oximetry 92 L 93 L 92 L 10/31/21 09:00 10/31/21 10:00 10/31/21 12:00 Temperature 98.4 F Pulse Rate 95 H 89 81 Respiratory Rate 27 H 21 Blood Pressure 172/84 171/84 O2 Sat by Pulse Oximetry 94 L 90 L 91 L 10/31/21 14:00 10/31/21 16:00 10/31/21 18:00 Temperature Pulse Rate 72 76 79 Respiratory Rate 22 31 H 28 H Blood Pressure 164/85 182/88 170/87 O2 Sat by Pulse Oximetry 91 L 93 L 92 L 10/31/21 18:11 10/31/21 20:00 10/31/21 20:56 Temperature 97.8 F Pulse Rate 84 81 Respiratory Rate 26 H Blood Pressure 173/96 186/88 O2 Sat by Pulse Oximetry 92 L 95 10/31/21 22:00 11/01/21 00:00 11/01/21 02:00 Temperature 97.9 F Pulse Rate 78 77 70 Respiratory Rate 22 20 22 Blood Pressure 179/80 182/86 176/89 O2 Sat by Pulse Oximetry 93 L 95 92 L 11/01/21 04:00 11/01/21 06:00 11/01/21 08:00 Temperature 97.9 F 98.1 F Pulse Rate 87 85 79 Respiratory Rate 26 H 22 19 Blood Pressure 180/88 170/89 138/65 O2 Sat by Pulse Oximetry 92 L 93 L 94 L 11/01/21 09:33 11/01/21 10:00 11/01/21 12:00 Temperature Pulse Rate 83 80 80 Respiratory Rate 22 22 Blood Pressure 153/78 173/75 O2 Sat by Pulse Oximetry 94 L 92 L 92 L 11/01/21 14:00 11/01/21 16:00 11/01/21 18:00 Temperature Pulse Rate 93 H 80 84 Respiratory Rate 24 26 H 23 Blood Pressure 174/88 178/86 148/70 O2 Sat by Pulse Oximetry 96 93 L 94 L 11/01/21 19:00 11/01/21 20:00 11/01/21 20:49 Temperature 98.3 F Pulse Rate 75 85 72 Respiratory Rate 24 24 Blood Pressure 177/82 183/94 O2 Sat by Pulse Oximetry 96 96 95 11/01/21 22:00 11/02/21 00:00 11/02/21 02:00 Temperature 98.3 F Pulse Rate 93 H 79 83 Respiratory Rate 19 21 19 Blood Pressure 134/64 141/77 141/87 O2 Sat by Pulse Oximetry 93 L 92 L 91 L 11/02/21 04:00 11/02/21 06:00 Temperature 98.7 F Pulse Rate 77 74 Respiratory Rate 26 H 20 Blood Pressure 162/81 174/92 O2 Sat by Pulse Oximetry 95 94 L Labs: Laboratory Last Values WBC 12.4 X10^3/uL (3.6-10.0) H 11/02/21 04:32 RBC 3.74 X10^6/uL (3.5-5.4) 11/02/21 04:32 Hgb 11.5 g/dL (12.0-16.0) L 11/02/21 04:32 Hct 33.9 % (36.0-47.0) L 11/02/21 04:32 MCV 90.8 fL (80.0-100.0) 11/02/21 04:32 MCH 30.7 pg (27.0-34.0) 11/02/21 04:32 MCHC 33.8 g/dL (33.0-35.0) 11/02/21 04:32 RDW 13.3 % (11.6-16.5) 11/02/21 04:32 Plt Count 434 X10^3/uL (150.0-450.0) 11/02/21 04:32 Plt Count Comment Adequate (ADEQUATE) 11/02/21 04:32 MPV 7.7 fL (7.4-11.0) 11/02/21 04:32 Neut % (Auto) 82.5 % (42.0-75.0) H 11/02/21 04:32 Lymph % (Auto) 7.5 % (21.0-51.0) L 11/02/21 04:32 [place] % (Auto) 9.8 % (0.0-13.0) 11/02/21 04:32 Eos % (Auto) 0.0 % (0.9-2.9) L 11/02/21 04:32 Baso % (Auto) 0.2 % (0.2-1.0) 11/02/21 04:32 Neut # (Auto) 10.2 x10^3/uL (2.2-4.8) H 11/02/21 04:32 Lymph # (Auto) 0.9 X10^3/uL (1.3-2.9) L 11/02/21 04:32 [place] # (Auto) 1.2 x10^3/uL (0.3-0.8) H 11/02/21 04:32 Eos # (Auto) 0.0 x10^3/uL (0.0-0.2) 11/02/21 04:32 Baso # (Auto) 0.0 X10^3/uL (0.0-0.1) 11/02/21 04:32 Absolute Nucleated RBC 0.1 /100WBC 11/02/21 04:32 Total Counted 100 11/02/21 04:32 Neutrophils % (Manual) 80 % (39-76) H 11/02/21 04:32 Lymphocytes % (Manual) 12 % (13-43) L 11/02/21 04:32 Monocytes % (Manual) 8 % (4-9) 11/02/21 04:32 Plt Morphology Comment Normal (NORMAL) 11/02/21 04:32 RBC Morphology Normal (NORMAL) 11/02/21 04:32 D-Dimer 1.31 ug/ml (0.0-0.57) H* 10/27/21 12:05 Sample Site Lbra 10/29/21 05:39 ABG pH 7.470 (7.35-7.45) H 10/29/21 05:39 ABG pCO2 45.0 mmHg (35.0-45.0) 10/29/21 05:39 ABG pO2 62.0 mmHg (80.0-100.0) L 10/29/21 05:39 ABG HCO3 32.8 mmol/L (22-26) H* 10/29/21 05:39 ABG O2 Saturation 93.0 % (90-100) 10/29/21 05:39 ABG Base Excess 8.1 mmol/L (-2.0-2.0) H 10/29/21 05:39 Naveen Test Na 10/29/21 05:39 A-a Gradient 138.0 mmHg 10/29/21 05:39 FiO2 36.0 10/29/21 05:39 Blood Gas Comments Ana abg well-mtf 10/29/21 05:39 Sodium 143 mmol/L (136-145) 11/02/21 04:32 Corrected Sodium 145 mmol/L (136-145) 11/02/21 04:32 Potassium 3.3 mmol/L (3.5-5.1) L 11/02/21 04:32 Chloride 102 mmol/L (98-107) 11/02/21 04:32 Carbon Dioxide 31.5 mmol/L (21-32) 11/02/21 04:32 BUN 14 mg/dL (7-18) 11/02/21 04:32 Creatinine 0.65 mg/dL (0.55-1.02) 11/02/21 04:32 Est GFR (MDRD) Af Amer > 60 (>60) 11/02/21 04:32 Est GFR (MDRD) Non-Af > 60 (>60) 11/02/21 04:32 Glucose 181 mg/dL (65-99) H 11/02/21 04:32 POC Glucose (mg/dL) 196 mg/dL (65-99) H 11/01/21 19:19 Calcium 7.9 mg/dL (8.5-10.1) L 11/02/21 04:32 Corrected Calcium 8.7 mg/dL (8.5-10.1) 11/02/21 04:32 Magnesium 2.6 mg/dL (1.7-2.9) 11/02/21 04:32 Ferritin 209 ng/mL (8-252) 10/27/21 12:05 Total Bilirubin 0.40 mg/dL (0.2-1.0) 11/02/21 04:32 AST 26 Units/L (15-37) 11/02/21 04:32 ALT 74 Units/L (12-78) 11/02/21 04:32 Alkaline Phosphatase 57 Units/L (46-116) 11/02/21 04:32 Troponin I < 0.02 ng/mL (0-1.5) 10/27/21 23:47 C-Reactive Protein 3.60 mg/L (0-3.0) H 11/02/21 04:32 B-Natriuretic Peptide 29.0 pg/mL (0-79) 11/02/21 04:32 Total Protein 6.3 g/dL (6.4-8.2) L 11/02/21 04:32 Albumin 3.0 g/dL (3.4-5.0) L 11/02/21 04:32 Globulin 3.3 g/dL (2.5-4.5) 11/02/21 04:32 Albumin/Globulin Ratio 0.9 Ratio (1.1-2.1) L 11/02/21 04:32 SARS CoV-2 RNA Rapid URBANO Positive (NEGATIVE) A 10/27/21 16:13 Reason For Visit: COVID +, COPD EXACERBATION, CHEST PAIN Discharge Date Discharge Date: 11/02/21 Discharge Diagnosis All Active Problems (Updated 11/02/21 @ 08:40 by Naga Morales) Cough (Acute) Bronchopneumonia (Acute) Anxiety (Acute) Constipation by delayed colonic transit (Acute) Generalized pain (Acute) Headache (Acute) Hypoalbuminemia (Acute) COPD with acute bronchitis (Acute) Intractable back pain (Acute) COVID (Acute) Acute dyspnea (Acute) Bronchitis due to COVID-19 virus (Acute) COPD exacerbation (Acute) Respiratory distress (Acute) Pneumonia (Acute) GERD (gastroesophageal reflux disease) (Chronic) Emphysema, unspecified (Chronic) COPD (chronic obstructive pulmonary disease) (Chronic) Depression (Chronic) Hypertension (Chronic) Plan of Treatment: Continue with present treatment and follow up plan. Pt is to keep follow up appointment as instructed and take medications as ordered. Discharge Medications Discharge Medications: No Known Allergies [NKA] Allergy (Verified 03/15/19 09:32) CONTINUE taking the following medications albuterol sulfate 2 puff INHALATION Q6H PRN 10/27/21 [History] New Prescriptions hydrocodone-chlorpheniramine 5 ml PO Q12H PRN 15 Days #150 ml MDD 10mL 11/02/21 [Rx] ipratropium-albuterol 3 ml INHALATION Q4-6H PRN #90 ml 11/02/21 [Rx] levofloxacin 750 mg PO DAILY 3 Days #3 tab 11/02/21 [Rx] prednisone 40 mg PO DAILY 3 Days #6 tab 11/02/21 [Rx] Follow up and Referral Follow Up: 1 Week Discharge Disposition Assessment: No acute distress noted at time of discharge. Discharge Disposition: HOME Discharge Condition: STABLE Discharge Plan Discharge Plan Hospital Course: PT IS A 61 YEAR OLD FEMALE ADMITTED FOR TREATMENT OF BRONCHITIS DUE TO COVID-19, HYPOXIA, AND COPD EXACERBATION. HER HOSPITAL/TREATMENT COURSE INCLUDED: NORMAL SALINE AT KVO, REMDESIVIR 100MG IV DAILY, ASCORBIC ACID 1500MG IV Q6H, ALBUTEROL NEBS Q6H, PULMICORT NEBS BID, TESSALON PERLES TID PRN, FLUVOXAMINE 50MG PO BID, SOLU-MEDROL, IVERMECTIN, ZOFRAN 4MG IV Q4H PRN, AND ZINC SULFATE 220MG PO DAILY. ANTIBIOTICS: LEVAQUIN. SUPPLEMENTAL OXYGEN WAS WEANED DOWN TO NASAL CANNULA AT 5 LPM. BASELINE HOME OXYGEN AT 3-3.5 LPM. SPUTUM CULTURES POSITIVE FOR BURKHOLDERIA CEPACIA SUSCEPTIBLE TO LEVAQUIN . PT RESPONDED WELL TO TREATMENTS. SHE WAS DISCHARGED IN STABLE CONDITION WITH RX LEVAQUIN, PREDNISONE TO COMPLETE COURSE. INSTRUCTED TO FOLLOW UP WITH PCP IN 3-5 DAYS. Patient Disposition: HOME, SELF-CARE Condition: Stable Health Concerns: Post Hospitalization: new medications and changes needed to prevent readmission or further decline. Pt educated and given instructions on all concerns. Care Plan Goals: Problem: Respiratory Complications Goal: Improved Uncomplicated Respiratory Status Instructions: Follow provided instructions. Follow up with primary physician as directed. Contact primary care physician or report to the closest Emergency Room if condition worsens. Plan of Treatment: Continue with present treatment and follow up plan. Pt is to keep follow up a ppointment as instructed and take medications as ordered. Assessment: No acute distress noted at time of discharge. Prescriptions: New levofloxacin 750 mg Tablet 750 mg PO DAILY 3 Days Qty: 3 RF: 0 hydrocodone-chlorpheniramine 10-8 mg/5 mL Suspension,Extended Rel 12 Hr 5 ml PO Q12H MDD 10mL PRN15 Days Qty: 150 RF: 0 prednisone 20 mg tablet 40 mg PO DAILY 3 Days Qty: 6 RF: 0 ipratropium-albuterol 0.5 mg-3 mg(2.5 mg base)/3 mL solution for nebulization 3 ml inhalation Q4-6H PRNQty: 90 RF: 0 Continued aspirin 81 MG tablet,chewable 81 mg PO DAILY RF: 0 pantoprazole 40 MG tablet,delayed release (DR/EC) 40 mg PO DAILY Qty: 30 RF: 3 losartan 50 MG tablet 50 mg PO HS RF: 0 sertraline 100 mg Tablet 100 mg PO DAILY RF: 0 levothyroxine 50 mcg Tablet 25 mcg PO DAILY RF: 0 montelukast 10 mg Tablet 10 mg PO DAILY RF: 0 Trelegy Ellipta 100-62.5-25 mcg Blister With Device 1 inh INHALATION QDAY RF: 0 albuterol sulfate 90 mcg/actuation HFA aerosol inhaler 2 puff INHALATION Q6H PRNRF: 0 Discontinued azithromycin 250 mg tablet 250 mg PO DAILY RF: 0 Orders to Discharge Patient Discharge Orders: Discharge (Routine); Ordered 11/02/21 Ordered By: Naga Morales Follow ups/Referrals Follow ups/Referrals: NATALIA GARCIA [Primary Care Provider] - 11/06/21 8:40 am Instructions Instructions: Cough, Adult, [id number], Chronic Obstructive Pulmonary Disease Exacerbation, [id number], 3 Doshi Steps to Take While Waiting for Your COVID-19 Test Result - CDC, 10 Things You Can Do to Manage Your COVID-19 Symptoms at Home - [facility] (04/23/2020), How to Use a Nebulizer, Adult, COVID-19: How to Protect Yourself and Others - CDC, COVID-19: Quarantine vs. Isolation - [facility] (10/09/2020), COVID-19: What to Do if You Are Sick - [facility] (10/23/2020) Stand Alone Forms: Excuse From Work or School, Precautions for COVID19, [facility], Patient Portal, Social Distancing
[2021-11-02] MEDS: PULMICORT NEB TX 0.5 MG NEB SCH (09:01)
[2021-11-02 11:22] VITALS: BP 152/78
== END 2021-11-02 11:20 | disposition home or self-care (01) ==
LOC: ICU 10:21 → ER 10:21 → ICU 18:17 → U 18:17 → ICU 10-28 16:00
PROVIDERS: ADMIT Internal Medicine; ATTEND Internal Medicine

== ENCOUNTER 2024-02-05 12:42 | Inpatient (IN) ==
[2024-02-05 13:06] LABS: ABG BASE EXCESS 10.8 mmol/L (-2.0-2.0)
[2024-02-05 13:07] LABS: ABG HCO3 35.1 mmol/L (22-26)
[2024-02-05 13:08] LABS: ABG ALLEN TEST POS
[2024-02-05] MEDS: DUONEB 0.5 MG/3 MG (3 mL) NEB ONE ×4 (13:15→16:50)
--- NOTE | 2024-02-05 13:17 | DR.SOBA ---
HPI Time Seen Time Seen by Provider: 02/05/24 13:08 Primary Care Physician Primary Care Physician: MARCO Jones HPI Comment HPI Comment: c/o sob congestion cough x 2 days txd for copd and worsened recently worse sob no fever recent abx not sure which + hx cad 1 stent /plavix Complaints Chief Complaint:: Pt states that for the past week she has had generalized weakness,fatigue, bodyaches, fever, chills, shortness of breath, productive cough with green sputum, and nausea. Pt routinely wears 3.5L O2 via NC at all times and has required up to 5L NC. Pt's family reports that O2 on the way to the hospital today got down to 76% on 5L NC. Self Treatment fo Chief Complaint: Pt has seen pcp and been treated with steroid shot and antibiotic shot. Pt also completed a prednisone taper and Cefdinir 300mg po bid x 10 days. COVID-19 Coronavirus risk:travel/contact w/high risk person: No Has patient experienced Coronavirus symptoms: Yes Coronavirus symptoms experienced: Shortness of Breath Source History Provided: Patient Mode of Arrival Mode of Arrival: Wheelchair Timing Onset of Chief Complaint: 01/24/24 PMH PMH Past Medical History: Yes Past Medical History: COPD, Coronary Artery Disease, GERD, Hypertension, Hypothyroidism and [place] Past Medical History Comment: osteoporosis Past Surgical History: Yes Surgical History: Angioplasty/Stents and Hysterectomy Family History History of Family Medical Conditions: Yes Family Medical History: Diabetes Mellitus, Cancer, [place], Coronary Artery Disease, Heart Failure and Hypertension Social History Does patient currently use any type of tobacco product: No Have you used tobacco products in the last 12 months: No Type of Tobacco Use: None Does any household member use tobacco: No Alcohol Use: DAILY Do you use any recreational Drugs:: No Lives With: Family Lives Where: Home Travel Risk Coronavirus risk:travel/contact w/high risk person: No Has patient experienced Coronavirus symptoms: Yes Coronavirus symptoms experienced: Shortness of Breath Infectious screening In the last 2 months have you had wt loss of >10#?: NO Have you had fever, night sweats or hemotysis?: No Have you traveled outside the country in the last 6 months?: No Isolation: Droplet ROS Review of Systems Respiratoy: Moist Cough, Wheezing and Other All Other Systems: Reviewed and Negative PE Vital Signs Vitals: Vital Signs Temperature 98.0 F Pulse Rate 111 Pulse Rate 109 Pulse Rate 109 Pulse Rate 103 Pulse Rate 107 Pulse Rate 106 Pulse Rate 103 Pulse Rate 103 Pulse Rate 109 Pulse Rate 103 Pulse Rate 104 Pulse Rate 104 Pulse Rate 103 Pulse Rate 106 Pulse Rate 110 Pulse Rate 104 Pulse Rate 100 Pulse Rate 106 Pulse Rate 108 Pulse Rate 110 Pulse Rate 108 Pulse Rate 108 Pulse Rate 106 Pulse Rate 110 Pulse Rate 117 Pulse Rate 118 Respiratory Rate 27 Respiratory Rate 25 Respiratory Rate 27 Respiratory Rate 22 Respiratory Rate 20 Respiratory Rate 20 Respiratory Rate 19 Respiratory Rate 27 Respiratory Rate 24 Respiratory Rate 25 Respiratory Rate 23 Respiratory Rate 22 Respiratory Rate 26 Respiratory Rate 29 Respiratory Rate 22 Respiratory Rate 31 Respiratory Rate 24 Respiratory Rate 26 Respiratory Rate 25 Respiratory Rate 26 Respiratory Rate 30 Respiratory Rate 43 Respiratory Rate 20 Respiratory Rate 25 Respiratory Rate 21 Respiratory Rate 24 Blood Pressure 140/63 Blood Pressure 142/65 Blood Pressure 143/67 Blood Pressure 120/58 Blood Pressure 120/58 Blood Pressure 110/55 Blood Pressure 110/55 Blood Pressure 171/80 Blood Pressure 148/67 Blood Pressure 162/67 Blood Pressure 170/80 Blood Pressure 128/65 Blood Pressure 140/75 Blood Pressure 140/75 Blood Pressure 148/80 Blood Pressure 148/83 Blood Pressure 142/82 Blood Pressure 137/75 Blood Pressure 153/74 Blood Pressure 171/84 Blood Pressure 143/90 O2 Sat by Pulse Oximetry 98 O2 Sat by Pulse Oximetry 99 O2 Sat by Pulse Oximetry 99 O2 Sat by Pulse Oximetry 99 O2 Sat by Pulse Oximetry 99 O2 Sat by Pulse Oximetry 99 O2 Sat by Pulse Oximetry 99 O2 Sat by Pulse Oximetry 99 O2 Sat by Pulse Oximetry 98 O2 Sat by Pulse Oximetry 99 O2 Sat by Pulse Oximetry 98 O2 Sat by Pulse Oximetry 97 O2 Sat by Pulse Oximetry 98 O2 Sat by Pulse Oximetry 99 O2 Sat by Pulse Oximetry 99 O2 Sat by Pulse Oximetry 100 O2 Sat by Pulse Oximetry 100 O2 Sat by Pulse Oximetry 99 O2 Sat by Pulse Oximetry 99 O2 Sat by Pulse Oximetry 99 O2 Sat by Pulse Oximetry 99 O2 Sat by Pulse Oximetry 100 O2 Sat by Pulse Oximetry 99 O2 Sat by Pulse Oximetry 99 O2 Sat by Pulse Oximetry 91 O2 Sat by Pulse Oximetry 87 Head Head Exam: Normal Inspection Eyes Eye exam: Normal Appearance Neck Neck Exam: Normal Inspection Respiratory Respiratory Exam: Bilateral: Wheezing, Bilateral: Rhonchi and Bilateral: Decreased Breath Sounds and Left: Wheezing, Left: Rhonchi and Left: Decreased Breath Sounds Cardiovascular Cardiovascular Exam: Regular Rate Abdominal Exam Abdominal Exam: Normal Inspection and Distention Extremities Extremities Exam: Normal Inspection Neurologic Neurological Exam: Alert ROR Labs Reviewed 02/05/24 13:15 02/05/24 13:15 Laboratory: WBC 10.9 X10^3/uL (3.6-10.0) H 02/05/24 13:15 RBC 3.86 X10^6/uL (3.5-5.4) 02/05/24 13:15 Hgb 12.1 g/dL (12.0-16.0) 02/05/24 13:15 Hct 36.2 % (36.0-47.0) 02/05/24 13:15 MCV 93.8 fL (80.0-100.0) 02/05/24 13:15 MCH 31.4 pg (27.0-34.0) 02/05/24 13:15 MCHC 33.5 g/dL (33.0-35.0) 02/05/24 13:15 RDW 14.0 % (11.6-16.5) 02/05/24 13:15 Plt Count 315 X10^3/uL (150.0-450.0) 02/05/24 13:15 MPV 7.1 fL (7.4-11.0) L 02/05/24 13:15 Neut % (Auto) 79.8 % (42.0-75.0) H 02/05/24 13:15 Lymph % (Auto) 8.2 % (21.0-51.0) L 02/05/24 13:15 [place] % (Auto) 7.5 % (0.0-13.0) 02/05/24 13:15 Eos % (Auto) 3.9 % (0.9-2.9) H 02/05/24 13:15 Baso % (Auto) 0.6 % (0.2-1.0) 02/05/24 13:15 Neut # (Auto) 8.7 x10^3/uL (2.2-4.8) H 02/05/24 13:15 Lymph # (Auto) 0.9 X10^3/uL (1.3-2.9) L 02/05/24 13:15 [place] # (Auto) 0.8 x10^3/uL (0.3-0.8) 02/05/24 13:15 Eos # (Auto) 0.4 x10^3/uL (0.0-0.2) H 02/05/24 13:15 Baso # (Auto) 0.1 X10^3/uL (0.0-0.1) 02/05/24 13:15 Absolute Nucleated RBC 0.1 /100WBC 02/05/24 13:15 Sample Site Rrad 02/05/24 14:10 ABG pH 7.560 (7.35-7.45) H* 02/05/24 14:10 ABG pCO2 39.0 mmHg (35.0-45.0) 02/05/24 14:10 ABG pO2 109.0 mmHg (80.0-100.0) H 02/05/24 14:10 ABG HCO3 34.9 mmol/L (22-26) H* 02/05/24 14:10 ABG O2 Saturation 99.0 % (90-100) 02/05/24 14:10 ABG Base Excess 11.7 mmol/L (-2.0-2.0) H 02/05/24 14:10 Naveen Test Pos 02/05/24 14:10 A-a Gradient 277.0 mmHg 02/05/24 14:10 FiO2 61.0 02/05/24 14:10 Blood Gas Comments Pt brijesh well. kg/eb 02/05/24 14:10 Sodium 137 mmol/L (136-145) 02/05/24 13:15 Corrected Sodium 138 mmol/L (136-145) 02/05/24 13:15 Potassium 3.6 mmol/L (3.5-5.1) 02/05/24 13:15 Chloride 95 mmol/L (98-107) L 02/05/24 13:15 Carbon Dioxide 33.9 mmol/L (21-32) H 02/05/24 13:15 BUN 14 mg/dL (7-18) 02/05/24 13:15 Creatinine 0.79 mg/dL (0.55-1.02) 02/05/24 13:15 Est GFR (MDRD) Af Amer > 60 (>60) 02/05/24 13:15 Est GFR (MDRD) Non-Af > 60 (>60) 02/05/24 13:15 Glucose 122 mg/dL (65-99) H 02/05/24 13:15 Lactic Acid 1.3 mmol/L (0.4-2.0) 02/05/24 13:15 Calcium 9.0 mg/dL (8.5-10.1) 02/05/24 13:15 Corrected Calcium 9.9 mg/dL (8.5-10.1) 02/05/24 13:15 Total Bilirubin 0.40 mg/dL (0.2-1.0) 02/05/24 13:15 AST 19 Units/L (15-37) 02/05/24 13:15 ALT 60 Units/L (12-78) 02/05/24 13:15 Alkaline Phosphatase 69 Units/L (46-116) 02/05/24 13:15 Troponin I High Sens 4.4 ng/L (4.0-60.0) 02/05/24 13:15 Total Protein 7.0 g/dL (6.4-8.2) 02/05/24 13:15 Albumin 2.9 g/dL (3.4-5.0) L 02/05/24 13:15 Globulin 4.1 g/dL (2.5-4.5) 02/05/24 13:15 Albumin/Globulin Ratio 0.7 Ratio (1.1-2.1) L 02/05/24 13:15 SARS-CoV-2 (PCR) Negative (NEGATIVE) 02/05/24 13:19 Influenza Type A (PCR) Negative (NEGATIVE) 02/05/24 13:19 Influenza Type B (PCR) Negative (NEGATIVE) 02/05/24 13:19 RSV (PCR) Negative (NEGATIVE) 02/05/24 13:19 XRAY X-ray Results: cxr hyperinflation no infiltrate Opioid Opioid Risk Tool Age (Cristopher box if 16-45): No History of Preadolescent Sexual Abuse: No Total: 0 Total Score Risk Category: Low Risk Copyright: Viral JACQUES predicting aberrant behaviors Procedures Additional Procedures Progress: spoke with Dr Morales who agreed to admit Discharge Plan Diagnosis Discharge Problem: Hypoxia, Acute exacerbation of chronic obstructive pulmonary disease Hospital Course Hospital Course: pt improveed markedly sao2 increased po2 105 Discharge Plan Patient Disposition: 01 HOME, SELF-CARE Condition: Stable Prescriptions: No Action aspirin 81 MG tablet,chewable 81 mg PO DAILY pantoprazole 40 MG tablet,delayed release (DR/EC) 40 mg PO DAILY Qty: 30 3RF Rx Instructions: TAKE 1 TABLET BY MOUTH DAILY. levothyroxine 50 mcg Tablet 25 mcg PO DAILY Trelegy Ellipta 100-62.5-25 mcg Blister With Device 1 inh INHALATION QDAY ipratropium-albuterol 0.5 mg-3 mg(2.5 mg base)/3 mL solution for nebulization 3 ml inhalation Q4-6H PRNQty: 90 0RF atorvastatin 80 mg tablet 80 mg PO QDAY azithromycin 250 mg tablet 250 mg PO QDAY sertraline 100 mg tablet 100 mg PO QDAY clopidogrel 75 mg tablet 75 mg PO QDAY sertraline 25 mg tablet 25 mg PO QDAY montelukast 10 mg tablet 10 mg PO QDAY albuterol sulfate 90 mcg/actuation HFA aerosol inhaler 2 puff INHALATION Q4HR valsartan 160 mg tablet 160 mg PO QDAY hydrochlorothiazide 12.5 mg tablet 12.5 mg PO QDAY Health Concerns: Post Hospitalization: new medications and changes needed to prevent readmission or further decline. Pt educated and given instructions on all concerns. Plan of Treatment: Continue with present treatment and follow up plan. Pt is to keep follow up appointment as instructed and take medications as ordered. Follow ups/Referrals Follow ups/Referrals: Abdulaziz Dan [Primary Care Provider] - 3 days Instructions Stand Alone Forms: Post Hospital Follow Up Care
[2024-02-05] MEDS: ROCEPHIN VIAL 1 GRAM IVP ONE (13:30)
[2024-02-05 13:33] LABS: BASOPHILS # (AUTO) 0.1 X10^3/uL (0.0-0.1); BASOPHILS % (AUTO) 0.6 % (0.2-1.0); EOSINOPHILS # (AUTO) 0.4 x10^3/uL (0.0-0.2); EOSINOPHILS % (AUTO) 3.9 % (0.9-2.9); HEMATOCRIT 36.2 % (36.0-47.0); HEMOGLOBIN 12.1 g/dL (12.0-16.0); LYMPHOCYTES # (AUTO) 0.9 X10^3/uL (1.3-2.9); LYMPHOCYTES % (AUTO) 8.2 % (21.0-51.0); MEAN CORPUSCULAR HEMOGLOBIN 31.4 pg (27.0-34.0); MEAN CORPUSCULAR HGB CONC 33.5 g/dL (33.0-35.0); MEAN CORPUSCULAR VOLUME 93.8 fL (80.0-100.0); MEAN PLATELET VOLUME 7.1 fL (7.4-11.0); MONOCYTES # (AUTO) 0.8 x10^3/uL (0.3-0.8); MONOCYTES % (AUTO) 7.5 % (0.0-13.0); NEUTROPHILS # (AUTO) 8.7 x10^3/uL (2.2-4.8); NEUTROPHILS % (AUTO) 79.8 % (42.0-75.0); PLATELET COUNT 315 X10^3/uL (150.0-450.0); RED BLOOD COUNT 3.86 X10^6/uL (3.5-5.4); WHITE BLOOD COUNT 10.9 X10^3/uL (3.6-10.0)
--- NOTE | 2024-02-05 13:35 | EKG ---
Test Reason : short of breath Blood Pressure : */* mmHG Vent. Rate : 105 BPM Atrial Rate : 105 BPM P-R Int : 112 ms QRS Dur : 76 ms QT Int : 312 ms P-R-T Axes : 66 85 77 degrees QTc Int : 412 ms Sinus tachycardia with premature supraventricular complexes Otherwise normal ECG No previous ECGs available Confirmed by Fahad Palmer ([id number]) on 02/07/2024 8:23:18 AM Referred By: Confirmed By: Fahad Palmer
[2024-02-05] MEDS: ASPIRIN 81 MG CHEWTAB PO ONE (13:38)
[2024-02-05 13:50] LABS: ALANINE AMINOTRANSFERASE 60 Units/L (12-78); ALBUMIN 2.9 g/dL (3.4-5.0); ALKALINE PHOSPHATASE 69 Units/L (46-116); ASPARTATE AMINO TRANSFERASE 19 Units/L (15-37); BLOOD UREA NITROGEN 14 mg/dL (7-18); CARBON DIOXIDE 33.9 mmol/L (21-32); CHLORIDE 95 mmol/L (98-107); COR CA(FOR HYPOALB) 9.9 mg/dL (8.5-10.1); COR NA(FOR HYPERGLY) 138 mmol/L (136-145); CREATININE 0.79 mg/dL (0.55-1.02); GLUCOSE 122 mg/dL (65-99); POTASSIUM 3.6 mmol/L (3.5-5.1); SODIUM 137 mmol/L (136-145); eGFR NON BLACK RACES > 60 (>60)
[2024-02-05 14:14] LABS: ABG BASE EXCESS 11.7 mmol/L (-2.0-2.0)
[2024-02-05 14:16] LABS: ABG ALLEN TEST POS; ABG HCO3 34.9 mmol/L (22-26)
--- NOTE | 2024-02-05 14:16 | RAD ---
EXAM:CHEST, 1 VIEWHISTORY:Pt states that for the past week she has had generalized weakness,fatigue, bodyaches, fever, chills, shortness of breath, productive cough with green sputum, and nausea. .; HX- COPD, CAD, PR, OSTEOPOROSIS, HTN SX- STENTS, GYNCOMPARISON:November 16, 2021TECHNIQUE:Upright portable frontal chest, one viewFINDINGS:Midline trachea. The lungs are hyperinflated with interstitial coarsening suggesting COPD. Mild airspace opacities in the right lung base. Heart size is prominent without failure.IMPRESSION:Advanced COPD. Right basilar pneumonia.THIS IS AN ELECTRONICALLY VERIFIED FINAL REPORT02/05/2024 2:13 PM - Electronically signed by Taras Barnes MD
[2024-02-05] MEDS: SOLU-Medrol 125 MG VIAL IVP ONE (16:02)
[2024-02-05] MEDS ORDERED: DUONEB 0.5 MG/3 MG (3 mL) NEB SCH (16:45)
[2024-02-05] MEDS: ASPIRIN 81 MG CHEWTAB ONE (16:50)
[2024-02-05] MEDS ORDERED: NS 1,000 ML IV 1,000 ML ONE (16:53)
[2024-02-05] MEDS: TYLENOL 325 MG TAB PO PRN (17:13)
[2024-02-05] MEDS: NS 1,000 ML IV 1,000 ML IV SCH (17:13)
[2024-02-05 17:39] VITALS: BMI 29.7
[2024-02-05] MEDS: DUONEB 0.5 MG/3 MG (3 mL) NEB SCH (20:12)
[2024-02-05] MEDS: PULMICORT NEB TX 0.5 MG NEB SCH (20:12)
[2024-02-05] MEDS: SOLU-Medrol 125 MG VIAL IVP SCH (20:20)
[2024-02-06 05:01] LABS: BASOPHILS % (AUTO) 0.1 % (0.2-1.0); HEMATOCRIT 32.3 % (36.0-47.0); HEMOGLOBIN 10.7 g/dL (12.0-16.0); LYMPHOCYTES # (AUTO) 0.3 X10^3/uL (1.3-2.9); LYMPHOCYTES % (AUTO) 3.9 % (21.0-51.0); MEAN CORPUSCULAR HGB CONC 33.1 g/dL (33.0-35.0); MEAN CORPUSCULAR VOLUME 93.6 fL (80.0-100.0); MEAN PLATELET VOLUME 7.1 fL (7.4-11.0); MONOCYTES # (AUTO) 0.2 x10^3/uL (0.3-0.8); MONOCYTES % (AUTO) 2.1 % (0.0-13.0); NEUTROPHILS % (AUTO) 93.9 % (42.0-75.0); PLATELET COUNT 314 X10^3/uL (150.0-450.0); RED BLOOD COUNT 3.45 X10^6/uL (3.5-5.4); RED CELL DISTRIBUTION WIDTH 13.8 % (11.6-16.5); WHITE BLOOD COUNT 7.4 X10^3/uL (3.6-10.0)
[2024-02-06 05:18] LABS: ALANINE AMINOTRANSFERASE 50 Units/L (12-78); ALBUMIN 2.5 g/dL (3.4-5.0); ALKALINE PHOSPHATASE 60 Units/L (46-116); ASPARTATE AMINO TRANSFERASE 15 Units/L (15-37); BLOOD UREA NITROGEN 15 mg/dL (7-18); CALCIUM 8.5 mg/dL (8.5-10.1); CARBON DIOXIDE 32.3 mmol/L (21-32); CHLORIDE 99 mmol/L (98-107); COR CA(FOR HYPOALB) 9.7 mg/dL (8.5-10.1); COR NA(FOR HYPERGLY) 140 mmol/L (136-145); CREATININE 0.66 mg/dL (0.55-1.02); GLUCOSE 178 mg/dL (65-99); SODIUM 138 mmol/L (136-145); TOTAL PROTEIN 6.4 g/dL (6.4-8.2); eGFR NON BLACK RACES > 60 (>60)
--- NOTE | 2024-02-06 06:06 | EKG ---
Test Reason : dyspnea Blood Pressure : */* mmHG Vent. Rate : 78 BPM Atrial Rate : 78 BPM P-R Int : 148 ms QRS Dur : 70 ms QT Int : 410 ms P-R-T Axes : 79 84 85 degrees QTc Int : 467 ms Sinus rhythm with premature supraventricular complexes possible Septal infarct , age undetermined Abnormal ECG When compared with ECG of 05-FEB-2024 13:17, (Unconfirmed) QT has lengthened Confirmed by Ronak Garvey MD ([id number]) on 02/06/2024 7:42:01 AM Referred By: Confirmed By: Ronak Garvey MD
[2024-02-06 06:16] LABS: BAND NEUTROPHILS % 2 % (0-10); PLATELET MORPHOLOGY COMMENT NORMAL (NORMAL)
[2024-02-06] MEDS: DUONEB 0.5 MG/3 MG (3 mL) NEB ONE ×2 (07:27→07:28)
[2024-02-06] MEDS: STERILE WATER IRRIGATION IR ONE (07:27)
[2024-02-06] MEDS: PULMICORT NEB TX 0.5 MG NEB ONE (07:28)
[2024-02-06] MEDS ORDERED: ASPIRIN 81 MG CHEWTAB PO SCH (09:00)
[2024-02-06] MEDS ORDERED: ZOLOFT ONE (09:18)
[2024-02-06] MEDS: LOVENOX INJ 40 MG SYR SC SCH (09:32)
[2024-02-06] MEDS: ZITHROMAX INJ 500 MG VIAL 500 MG in NS 250 ML IV 250 ML IV SCH (09:32)
[2024-02-06] MEDS: PLAVIX PO SCH (09:32)
[2024-02-06] MEDS: ROCEPHIN VIAL 1 GRAM 1 G in NS 100 ML IV 100 ML IV SCH (09:32)
[2024-02-06] MEDS: DIOVAN TAB 160 MG PO SCH (09:32)
[2024-02-06] MEDS: ZOLOFT PO SCH (09:33)
[2024-02-06] MEDS: PROTONIX TAB 40 MG PO SCH (09:34)
[2024-02-06] MEDS: LIPITOR TAB 80 MG PO SCH (09:34)
[2024-02-06] MEDS: SYNTHROID 25 mcg TAB PO SCH (09:34)
[2024-02-06] MEDS: ASPIRIN 81 MG CHEWTAB PO SCH (09:34)
[2024-02-06] MEDS: HYDROCHLOROTHIAZIDE 12.5 MG CAP PO SCH (09:34)
[2024-02-06] MEDS: SERTRALINE 25 MG PO SCH (09:35)
[2024-02-06] MEDS: SINGULAIR TAB 10 MG PO SCH (09:35)
--- NOTE | 2024-02-06 10:30 | DR.H&P ---
H&P History & Physical for Day of: H&P Date: 02/06/24 Chief Complaint Chief Complaint: SOB, cough Allergies Allergies Allergy/AdvReac Type Severity Reaction Status Date / Time No Known Allergies [NKA] Allergy Verified 01/22/22 14:42 History of Present Illness History of Present Illness: Ms Nagy is a 63y/o female with a PMH of Severe COPD on home O2 3-4L, CAD s/p PCI, HTN, HLD and GERD presented with worsening cough and dyspnea. Patient has been sick with these symptoms for couple weeks and was treated outpatient with steroid shot, oral antibiotics and steroids. She states she was feeling better and then got worse on Tuesday. She reports productive cough, wheezing and SOB. In the ER, CXR showed COPD changes and right basilar pneumonia. Trop x 2 (-). She was started on IV antibiotics and steroids. She was initially on 5L NC, weaned down to 3L now with sats >90%. Labs/imaging reviewed -WBC 7.4 Hgb 10.7 -AB.56/39/109/34.9 -Trop x2 (-) -CXR: right basilar pneumonia, COPD changes Plan: Wean O2 as tolerated to keep sats > 92%. Continue IV Rocephin and Solumedrol. Taper solumedrol 60 mg Q8hr. Add Azithromycin. Continue hydration. Continue nebs and pulmicort prn. Follow pending cultures and AIT panel. Resume home medications. Monitor AM labs/imaging. Past Medical History Past Medical History: COPD, Coronary Artery Disease, GERD, Hypertension, Hypothyroidism and [place] Past Surgical History Surgical History: Angioplasty/Stents and Hysterectomy Family History Family Medical History: Diabetes Mellitus, Cancer, [place], Coronary Artery Disease, Heart Failure and Hypertension Social History Does patient currently use any type of tobacco product: No Have you used tobacco products in the last 12 months: No Type of Tobacco Use: None How many years tobacco product used: 30 Does any household member use tobacco: No Alcohol Use: DAILY Drug Use: None Medications Home Medications: Home Medications Medication Instructions Recorded Confirmed Type aspirin 81 mg chewable tablet 81 mg PO DAILY 08/27/15 02/05/24 History fluticasone fur. 100 mcg-umeclid 1 inh inhalation QDAY 03/15/19 02/05/24 History 62.5 mcg-vilant 25 mcg inhalat.powder (Trelegy Ellipta) levothyroxine 50 mcg tablet 25 mcg PO DAILY 03/15/19 02/05/24 History albuterol sulfate 90 mcg/actuation 2 puff inhalation Q4HR wheezing 02/05/24 02/05/24 History aerosol inhaler atorvastatin 80 mg tablet 80 mg PO QDAY cholesterol 02/05/24 02/05/24 History azithromycin 250 mg tablet 250 mg PO QDAY 02/05/24 02/05/24 History clopidogrel 75 mg tablet 75 mg PO QDAY 02/05/24 02/05/24 History hydrochlorothiazide 12.5 mg tablet 12.5 mg PO QDAY 02/05/24 02/05/24 History montelukast 10 mg tablet 10 mg PO QDAY 02/05/24 02/05/24 History sertraline 100 mg tablet 100 mg PO QDAY 02/05/24 02/05/24 History sertraline 25 mg tablet 25 mg PO QDAY 02/05/24 02/05/24 History valsartan 160 mg tablet 160 mg PO QDAY 02/05/24 02/05/24 History Labs 02/06/24 04:41 02/06/24 04:41 Labs: Laboratory WBC 7.4 X10^3/uL (3.6-10.0) 02/06/24 04:41 RBC 3.45 X10^6/uL (3.5-5.4) L 02/06/24 04:41 Hgb 10.7 g/dL (12.0-16.0) L 02/06/24 04:41 Hct 32.3 % (36.0-47.0) L 02/06/24 04:41 MCV 93.6 fL (80.0-100.0) 02/06/24 04:41 MCH 31.0 pg (27.0-34.0) 02/06/24 04:41 MCHC 33.1 g/dL (33.0-35.0) 02/06/24 04:41 RDW 13.8 % (11.6-16.5) 02/06/24 04:41 Plt Count 314 X10^3/uL (150.0-450.0) 02/06/24 04:41 Plt Count Comment Adequate (ADEQUATE) 02/06/24 04:41 MPV 7.1 fL (7.4-11.0) L 02/06/24 04:41 Neut % (Auto) 93.9 % (42.0-75.0) H 02/06/24 04:41 Lymph % (Auto) 3.9 % (21.0-51.0) L 02/06/24 04:41 [place] % (Auto) 2.1 % (0.0-13.0) 02/06/24 04:41 Eos % (Auto) 0.0 % (0.9-2.9) L 02/06/24 04:41 Baso % (Auto) 0.1 % (0.2-1.0) L 02/06/24 04:41 Neut # (Auto) 7.0 x10^3/uL (2.2-4.8) H 02/06/24 04:41 Lymph # (Auto) 0.3 X10^3/uL (1.3-2.9) L 02/06/24 04:41 [place] # (Auto) 0.2 x10^3/uL (0.3-0.8) L 02/06/24 04:41 Eos # (Auto) 0.0 x10^3/uL (0.0-0.2) 02/06/24 04:41 Baso # (Auto) 0.0 X10^3/uL (0.0-0.1) 02/06/24 04:41 Absolute Nucleated RBC 0.0 /100WBC 02/06/24 04:41 Total Counted 100 02/06/24 04:41 Neutrophils % (Manual) 93 % (39-76) H 02/06/24 04:41 Band Neutrophils % 2 % (0-10) 02/06/24 04:41 Lymphocytes % (Manual) 4 % (13-43) L 02/06/24 04:41 Eosinophils % (Manual) 1 % (0-6) 02/06/24 04:41 Plt Morphology Comment Normal (NORMAL) 02/06/24 04:41 RBC Morphology Normal (NORMAL) 02/06/24 04:41 Sample Site Rrad 02/05/24 14:10 ABG pH 7.560 (7.35-7.45) H* 02/05/24 14:10 ABG pCO2 39.0 mmHg (35.0-45.0) 02/05/24 14:10 ABG pO2 109.0 mmHg (80.0-100.0) H 02/05/24 14:10 ABG HCO3 34.9 mmol/L (22-26) H* 02/05/24 14:10 ABG O2 Saturation 99.0 % (90-100) 02/05/24 14:10 ABG Base Excess 11.7 mmol/L (-2.0-2.0) H 02/05/24 14:10 Naveen Test Pos 02/05/24 14:10 A-a Gradient 277.0 mmHg 02/05/24 14:10 FiO2 61.0 02/05/24 14:10 Blood Gas Comments Pt brijesh well. kg/eb 02/05/24 14:10 Sodium 138 mmol/L (136-145) 02/06/24 04:41 Corrected Sodium 140 mmol/L (136-145) 02/06/24 04:41 Potassium 4.0 mmol/L (3.5-5.1) 02/06/24 04:41 Chloride 99 mmol/L (98-107) 02/06/24 04:41 Carbon Dioxide 32.3 mmol/L (21-32) H 02/06/24 04:41 BUN 15 mg/dL (7-18) 02/06/24 04:41 Creatinine 0.66 mg/dL (0.55-1.02) 02/06/24 04:41 Est GFR (MDRD) Af Amer > 60 (>60) 02/06/24 04:41 Est GFR (MDRD) Non-Af > 60 (>60) 02/06/24 04:41 Glucose 178 mg/dL (65-99) H 02/06/24 04:41 Lactic Acid 1.3 mmol/L (0.4-2.0) 02/05/24 13:15 Calcium 8.5 mg/dL (8.5-10.1) 02/06/24 04:41 Corrected Calcium 9.7 mg/dL (8.5-10.1) 02/06/24 04:41 Magnesium 2.1 mg/dL (2.0-2.9) 02/06/24 04:41 Total Bilirubin 0.20 mg/dL (0.2-1.0) 02/06/24 04:41 AST 15 Units/L (15-37) 02/06/24 04:41 ALT 50 Units/L (12-78) 02/06/24 04:41 Alkaline Phosphatase 60 Units/L (46-116) 02/06/24 04:41 Troponin I High Sens < 4.0 ng/L (4.0-60.0) L 02/06/24 04:41 Total Protein 6.4 g/dL (6.4-8.2) 02/06/24 04:41 Albumin 2.5 g/dL (3.4-5.0) L 02/06/24 04:41 Globulin 3.9 g/dL (2.5-4.5) 02/06/24 04:41 Albumin/Globulin Ratio 0.6 Ratio (1.1-2.1) L 02/06/24 04:41 SARS-CoV-2 (PCR) Negative (NEGATIVE) 02/05/24 13:19 Influenza Type A (PCR) Negative (NEGATIVE) 02/05/24 13:19 Influenza Type B (PCR) Negative (NEGATIVE) 02/05/24 13:19 RSV (PCR) Negative (NEGATIVE) 02/05/24 13:19 Review of Systems Constitutional: Fever, Chills and Malaise Eyes: No Symptoms Reported ENT: No Symptoms Reported Respiratory: Cough, SOB with Excertion and Sputum Cardiovascular: No Symptoms Reported Gastrointestinal: No Symptoms Reported Genitourinary: No Symptoms Reported Musculoskeletal: No Symptoms Reported Skin: No Symptoms Reported Neurological: No Symptoms Reported Physical Exam Vital Signs: Vital Signs Temperature 97.4 F Temperature 97.8 F Pulse Rate [Brachial] 98 Pulse Rate [Brachial] 78 Pulse Rate 89 Pulse Rate 82 Respiratory Rate 22 Respiratory Rate 20 Blood Pressure [Right Arm] 118/61 Blood Pressure [Right Arm] 130/77 O2 Sat by Pulse Oximetry 97 O2 Sat by Pulse Oximetry 95 O2 Sat by Pulse Oximetry 98 O2 Sat by Pulse Oximetry 97 Oriented: Normal Eyes: Normal Nose: Normal Throat: Normal Respiratory: Diminished Throughout and Wheezes Throughout Cardiovascular: Normal Auscultation: Bowel Sounds: Normal Palpation: Normal Tenderness: Normal Skin: Normal Musculoskeletal: Normal Psychiatric: Anxiety Mood Description: Calm Affect: Anxious Speech Pattern: Clear and Appropriate Assessment/Plan (1) Acute exacerbation of chronic obstructive pulmonary disease: Status: Acute (2) Pneumonia: Qualifiers: Laterality: right Lung location: lower lobe of lung Pneumonia type: due to unspecified organism Qualified Code(s): J18.9 - Pneumonia, unspecified organism Status: Acute (3) Acute and chronic respiratory failure: Qualifiers: Respiratory failure complication: hypoxia Qualified Code(s): J96.21 - Acute and chronic respiratory failure with hypoxia Status: Acute (4) Emphysema, unspecified: Qualifiers: Emphysema type: unspecified Qualified Code(s): J43.9 - Emphysema, unspecified Status: Chronic (5) CAD (coronary artery disease): Qualifiers: Associated angina: without angina Coronary Disease-Associated Artery/ Lesion type: unspecified vessel or lesion type [place] vs. transplanted heart: [place] heart Qualified Code(s): I25.10 - Atherosclerotic heart disease of [place] coronary artery without angina pectoris Status: Acute (6) Hypertension: Qualifiers: Hypertension type: essential hypertension Qualified Code(s): I10 - Essential (primary) hypertension Status: Chronic Review H&P Reviewed: Yes Patient was examined?: Yes
[2024-02-06] MEDS: SOLU-Medrol 125 MG VIAL IVP SCH (14:44)
[2024-02-07 06:38] LABS: BASOPHILS % (AUTO) 0.1 % (0.2-1.0); HEMATOCRIT 32.4 % (36.0-47.0); HEMOGLOBIN 10.8 g/dL (12.0-16.0); LYMPHOCYTES # (AUTO) 1.1 X10^3/uL (1.3-2.9); MEAN CORPUSCULAR HEMOGLOBIN 31.1 pg (27.0-34.0); MEAN CORPUSCULAR HGB CONC 33.3 g/dL (33.0-35.0); MEAN CORPUSCULAR VOLUME 93.3 fL (80.0-100.0); MONOCYTES # (AUTO) 0.8 x10^3/uL (0.3-0.8); MONOCYTES % (AUTO) 4.8 % (0.0-13.0); NEUTROPHILS # (AUTO) 15.9 x10^3/uL (2.2-4.8); NEUTROPHILS % (AUTO) 89.1 % (42.0-75.0); PLATELET COUNT 332 X10^3/uL (150.0-450.0); RED BLOOD COUNT 3.47 X10^6/uL (3.5-5.4); RED CELL DISTRIBUTION WIDTH 13.7 % (11.6-16.5); WHITE BLOOD COUNT 17.8 X10^3/uL (3.6-10.0)
[2024-02-07 06:43] LABS: ALANINE AMINOTRANSFERASE 52 Units/L (12-78); ALBUMIN 2.6 g/dL (3.4-5.0); ALKALINE PHOSPHATASE 57 Units/L (46-116); ASPARTATE AMINO TRANSFERASE 17 Units/L (15-37); BLOOD UREA NITROGEN 16 mg/dL (7-18); CALCIUM 8.5 mg/dL (8.5-10.1); CARBON DIOXIDE 32.1 mmol/L (21-32); CHLORIDE 101 mmol/L (98-107); COR CA(FOR HYPOALB) 9.6 mg/dL (8.5-10.1); COR NA(FOR HYPERGLY) 142 mmol/L (136-145); CREATININE 0.59 mg/dL (0.55-1.02); GLUCOSE 139 mg/dL (65-99); SODIUM 141 mmol/L (136-145); TOTAL PROTEIN 6.5 g/dL (6.4-8.2); eGFR NON BLACK RACES > 60 (>60)
[2024-02-07] MEDS: CONSULT PHARMACY - POTASSIUM & MAGNESIUM XX SCH (07:53)
[2024-02-07] MEDS ORDERED: ZITHROMAX INJ 500 MG VIAL IV ONE (08:09)
[2024-02-07] MEDS ORDERED: ZOLOFT ONE (08:09)
[2024-02-07] MEDS: NS + KCL 20 MEQ/L 1,000 ML IV SCH (09:12)
--- NOTE | 2024-02-07 11:03 | PCM.PROG ---
Progress Note Progress Note for Day of Date of Exam: 02/07/24 Subjective Subjective: Patient seen at bedside, no acute events overnight. She is feeling better. She is on 4L NC. She states she still feels SOB with exertion but it ahs been getting better. She did work with PT yesterday. She is being treated for COPD exacerbation and pneumonia. She has been on IV antibiotics, solumedrol and bronchodilators. Labs/imaging reviewed: -WBC 17.8 Hgb 10.8 K:3.0 -AIT panel: negative Plan: Wean O2 as tolerated, continue IV antibiotics and steroids. Continue nebs and pulmicort. PT/OT as tolerated. Continue home medications. Replace K as per protocol. Monitor AM labs/imaging. Past Medical Family Social History Allergies: Allergies No Known Allergies [NKA] Allergy (Verified 01/22/22 14:42) Vital Signs and I&O's Vital Signs: Vital Signs Temperature 98.1 F Temperature 97.9 F Pulse Rate [Brachial] 87 Pulse Rate [Brachial] 79 Pulse Rate 91 Respiratory Rate 18 Respiratory Rate 18 Blood Pressure [Right Arm] 147/69 Blood Pressure [Right Arm] 149/87 O2 Sat by Pulse Oximetry 94 O2 Sat by Pulse Oximetry 95 O2 Sat by Pulse Oximetry 95 Intake and Output: Intake & Output 02/04/24 02/05/24 02/06/24 02/07/24 23:59 23:59 23:59 23:59 Intake Total 434 / 434 2540 / 2540 705 / 705 Balance 434 / 434 2540 / 2540 705 / 705 Physical Exam Oriented: Normal Eyes: Normal Nose: Normal Throat: Normal Respiratory: Generalized and Wheezes Cardiovascular: Normal Auscultation: Bowel Sounds: Normal Palpation: Normal Tenderness: Normal Skin: Normal Musculoskeletal: Normal Psychiatric: Normal Mood Description: Calm Affect: Normal Speech Pattern: Clear and Appropriate Laboratory and Diagnostics 02/07/24 05:54 02/07/24 05:54 Labs: Laboratory WBC 17.8 X10^3/uL (3.6-10.0) H D 02/07/24 05:54 RBC 3.47 X10^6/uL (3.5-5.4) L 02/07/24 05:54 Hgb 10.8 g/dL (12.0-16.0) L 02/07/24 05:54 Hct 32.4 % (36.0-47.0) L 02/07/24 05:54 MCV 93.3 fL (80.0-100.0) 02/07/24 05:54 MCH 31.1 pg (27.0-34.0) 02/07/24 05:54 MCHC 33.3 g/dL (33.0-35.0) 02/07/24 05:54 RDW 13.7 % (11.6-16.5) 02/07/24 05:54 Plt Count 332 X10^3/uL (150.0-450.0) 02/07/24 05:54 Plt Count Comment Adequate (ADEQUATE) 02/06/24 04:41 MPV 7.0 fL (7.4-11.0) L 02/07/24 05:54 Neut % (Auto) 89.1 % (42.0-75.0) H 02/07/24 05:54 Lymph % (Auto) 6.0 % (21.0-51.0) L 02/07/24 05:54 [place] % (Auto) 4.8 % (0.0-13.0) 02/07/24 05:54 Eos % (Auto) 0.0 % (0.9-2.9) L 02/07/24 05:54 Baso % (Auto) 0.1 % (0.2-1.0) L 02/07/24 05:54 Neut # (Auto) 15.9 x10^3/uL (2.2-4.8) H 02/07/24 05:54 Lymph # (Auto) 1.1 X10^3/uL (1.3-2.9) L 02/07/24 05:54 [place] # (Auto) 0.8 x10^3/uL (0.3-0.8) 02/07/24 05:54 Eos # (Auto) 0.0 x10^3/uL (0.0-0.2) 02/07/24 05:54 Baso # (Auto) 0.0 X10^3/uL (0.0-0.1) 02/07/24 05:54 Absolute Nucleated RBC 0.1 /100WBC 02/07/24 05:54 Total Counted 100 02/06/24 04:41 Neutrophils % (Manual) 93 % (39-76) H 02/06/24 04:41 Band Neutrophils % 2 % (0-10) 02/06/24 04:41 Lymphocytes % (Manual) 4 % (13-43) L 02/06/24 04:41 Eosinophils % (Manual) 1 % (0-6) 02/06/24 04:41 Plt Morphology Comment Normal (NORMAL) 02/06/24 04:41 RBC Morphology Normal (NORMAL) 02/06/24 04:41 Sample Site Rrad 02/05/24 14:10 ABG pH 7.560 (7.35-7.45) H* 02/05/24 14:10 ABG pCO2 39.0 mmHg (35.0-45.0) 02/05/24 14:10 ABG pO2 109.0 mmHg (80.0-100.0) H 02/05/24 14:10 ABG HCO3 34.9 mmol/L (22-26) H* 02/05/24 14:10 ABG O2 Saturation 99.0 % (90-100) 02/05/24 14:10 ABG Base Excess 11.7 mmol/L (-2.0-2.0) H 02/05/24 14:10 Naveen Test Pos 02/05/24 14:10 A-a Gradient 277.0 mmHg 02/05/24 14:10 FiO2 61.0 02/05/24 14:10 Blood Gas Comments Pt brijesh well. kg/eb 02/05/24 14:10 Sodium 141 mmol/L (136-145) 02/07/24 05:54 Corrected Sodium 142 mmol/L (136-145) 02/07/24 05:54 Potassium 3.0 mmol/L (3.5-5.1) L 02/07/24 05:54 Chloride 101 mmol/L (98-107) 02/07/24 05:54 Carbon Dioxide 32.1 mmol/L (21-32) H 02/07/24 05:54 BUN 16 mg/dL (7-18) 02/07/24 05:54 Creatinine 0.59 mg/dL (0.55-1.02) 02/07/24 05:54 Est GFR (MDRD) Af Amer > 60 (>60) 02/07/24 05:54 Est GFR (MDRD) Non-Af > 60 (>60) 02/07/24 05:54 Glucose 139 mg/dL (65-99) H 02/07/24 05:54 Lactic Acid 1.3 mmol/L (0.4-2.0) 02/05/24 13:15 Calcium 8.5 mg/dL (8.5-10.1) 02/07/24 05:54 Corrected Calcium 9.6 mg/dL (8.5-10.1) 02/07/24 05:54 Magnesium 2.2 mg/dL (2.0-2.9) 02/07/24 06:17 Total Bilirubin 0.20 mg/dL (0.2-1.0) 02/07/24 05:54 AST 17 Units/L (15-37) 02/07/24 05:54 ALT 52 Units/L (12-78) 02/07/24 05:54 Alkaline Phosphatase 57 Units/L (46-116) 02/07/24 05:54 Troponin I High Sens < 4.0 ng/L (4.0-60.0) L 02/06/24 04:41 Total Protein 6.5 g/dL (6.4-8.2) 02/07/24 05:54 Albumin 2.6 g/dL (3.4-5.0) L 02/07/24 05:54 Globulin 3.9 g/dL (2.5-4.5) 02/07/24 05:54 Albumin/Globulin Ratio 0.7 Ratio (1.1-2.1) L 02/07/24 05:54 SARS-CoV-2 (PCR) Negative (NEGATIVE) 02/05/24 13:19 Influenza Type A (PCR) Negative (NEGATIVE) 02/05/24 13:19 Influenza Type B (PCR) Negative (NEGATIVE) 02/05/24 13:19 RSV (PCR) Negative (NEGATIVE) 02/05/24 13:19 Resp Viral Panel (PCR) See scanned report 02/05/24 17:07 Plan (1) Acute exacerbation of chronic obstructive pulmonary disease: Status: Acute (2) Pneumonia: Status: Acute Qualifiers: Laterality: right Lung location: lower lobe of lung Pneumonia type: due to unspecified organism Qualified Code(s): J18.9 - Pneumonia, unspecified organism (3) Acute and chronic respiratory failure: Status: Acute Qualifiers: Respiratory failure complication: hypoxia Qualified Code(s): J96.21 - Acute and chronic respiratory failure with hypoxia (4) Emphysema, unspecified: Status: Chronic Qualifiers: Emphysema type: unspecified Qualified Code(s): J43.9 - Emphysema, uns pecified (5) CAD (coronary artery disease): Status: Acute Qualifiers: Associated angina: without angina Coronary Disease-Associated Artery/Lesion type: unspecified vessel or lesion type [place] vs. transplanted heart: [place] heart Qualified Code(s): I25.10 - Atherosclerotic heart disease of [place] coronary artery without angina pectoris (6) Hypertension: Status: Chronic Qualifiers: Hypertension type: essential hypertension Qualified Code(s): I10 - Essential (primary) hypertension
[2024-02-08 06:21] LABS: ALANINE AMINOTRANSFERASE 58 Units/L (12-78); ALBUMIN 2.6 g/dL (3.4-5.0); ALKALINE PHOSPHATASE 59 Units/L (46-116); ASPARTATE AMINO TRANSFERASE 24 Units/L (15-37); BLOOD UREA NITROGEN 15 mg/dL (7-18); CALCIUM 8.5 mg/dL (8.5-10.1); CHLORIDE 103 mmol/L (98-107); CHOLESTEROL 243 mg/dL (0-200); COR CA(FOR HYPOALB) 9.6 mg/dL (8.5-10.1); COR NA(FOR HYPERGLY) 141 mmol/L (136-145); CREATININE 0.56 mg/dL (0.55-1.02); GLUCOSE 124 mg/dL (65-99); HDL CHOLESTEROL 81 mg/dL (40-60); SODIUM 140 mmol/L (136-145); TOTAL PROTEIN 6.4 g/dL (6.4-8.2); TRIGLYCERIDES 120 mg/dL (0-150); eGFR NON BLACK RACES > 60 (>60)
[2024-02-08 06:36] LABS: BASOPHILS # (AUTO) 0.1 X10^3/uL (0.0-0.1); BASOPHILS % (AUTO) 0.5 % (0.2-1.0); HEMATOCRIT 33.2 % (36.0-47.0); HEMOGLOBIN 10.9 g/dL (12.0-16.0); LYMPHOCYTES # (AUTO) 1.6 X10^3/uL (1.3-2.9); LYMPHOCYTES % (AUTO) 12.4 % (21.0-51.0); MEAN CORPUSCULAR HEMOGLOBIN 30.9 pg (27.0-34.0); MEAN CORPUSCULAR HGB CONC 32.8 g/dL (33.0-35.0); MEAN CORPUSCULAR VOLUME 94.3 fL (80.0-100.0); MEAN PLATELET VOLUME 7.4 fL (7.4-11.0); MONOCYTES # (AUTO) 0.6 x10^3/uL (0.3-0.8); MONOCYTES % (AUTO) 4.6 % (0.0-13.0); NEUTROPHILS # (AUTO) 10.9 x10^3/uL (2.2-4.8); NEUTROPHILS % (AUTO) 82.5 % (42.0-75.0); PLATELET COUNT 233 X10^3/uL (150.0-450.0); RED BLOOD COUNT 3.52 X10^6/uL (3.5-5.4); RED CELL DISTRIBUTION WIDTH 13.7 % (11.6-16.5)
[2024-02-08 07:00] LABS: PLATELET MORPHOLOGY COMMENT NORMAL (NORMAL); WHITE BLOOD COUNT 13.2 X10^3/uL (3.6-10.0)
[2024-02-08] MEDS: ZOLOFT ONE (08:39)
[2024-02-08] MEDS: CATAPRES TAB 0.1 MG PO ONE (13:41)
[2024-02-08] MEDS: CATAPRES TAB 0.1 MG ONE (14:39)
--- NOTE | 2024-02-08 14:43 | PCM.PROG ---
Progress Note Progress Note for Day of Date of Exam: 02/08/24 Subjective Subjective: Patient seen at bedside, no acute events overnight. She states she feels slightly worse today. She has been having more productive cough and wheezing. She is currently on 4 L nasal cannula. She did work with physical therapy and was able to ambulate in the hallway. She does have home oxygen but is concerned about not having enough oxygen at home. manager behavior is working with the oxygen company. Patient has been on IV antibiotics, steroids and bronchodilators. Labs/imaging reviewed: -WBC 13.2 Hgb 10.9 K:4.0 -AIT panel: negative -Urine culture: Gram-negative rods Plan: Wean O2 as tolerated, continue IV antibiotics and steroids. Continue nebs and pulmicort. PT/OT as tolerated. Continue home medications. Replace K as per protocol. Monitor AM labs/imaging. manager behavior to check with oxygen company regarding home oxygen supplies. Past Medical Family Social History Allergies: Allergies No Known Allergies [NKA] Allergy (Verified 01/22/22 14:42) Vital Signs and I&O's Vital Signs: Vital Signs Temperature 98.0 F Temperature 98.0 F Pulse Rate [Brachial] 86 Pulse Rate [Brachial] 84 Pulse Rate 85 Pulse Rate 85 Respiratory Rate 24 Respiratory Rate 20 Respiratory Rate 20 Blood Pressure [Right Arm] 180/84 Blood Pressure [Right Arm] 176/87 Blood Pressure [Right Arm] 183/88 O2 Sat by Pulse Oximetry 95 O2 Sat by Pulse Oximetry 96 O2 Sat by Pulse Oximetry 95 O2 Sat by Pulse Oximetry 95 Intake and Output: Intake & Output 02/05/24 02/06/24 02/07/24 02/08/24 23:59 23:59 23:59 23:59 Intake Total 434 / 434 2540 / 2540 3414 / 3414 591 / 591 Balance 434 / 434 2540 / 2540 3414 / 3414 591 / 591 Physical Exam Oriented: Normal Eyes: Normal Nose: Normal Throat: Normal Respiratory: Generalized and Wheezes Cardiovascular: Normal Auscultation: Bowel Sounds: Normal Palpation: Normal Tenderness: Normal Skin: Normal Musculoskeletal: Normal Psychiatric: Normal Mood Description: Calm Affect: Normal Speech Pattern: Clear and Appropriate Laboratory and Diagnostics 02/08/24 05:33 02/08/24 05:33 Labs: 02/05/24 13:30 Blood Blood Culture - Preliminary 02/05/24 13:25 Blood Blood Culture - Final 02/07/24 12:59 Sputum - Expectorated Sputum Sputum Culture - Preliminary 02/07/24 12:59 Sputum - Expectorated Sputum - Final Laboratory WBC 13.2 X10^3/uL (3.6-10.0) H 02/08/24 05:33 RBC 3.52 X10^6/uL (3.5-5.4) 02/08/24 05:33 Hgb 10.9 g/dL (12.0-16.0) L 02/08/24 05:33 Hct 33.2 % (36.0-47.0) L 02/08/24 05:33 MCV 94.3 fL (80.0-100.0) 02/08/24 05:33 MCH 30.9 pg (27.0-34.0) 02/08/24 05:33 MCHC 32.8 g/dL (33.0-35.0) L 02/08/24 05:33 RDW 13.7 % (11.6-16.5) 02/08/24 05:33 Plt Count 233 X10^3/uL (150.0-450.0) 02/08/24 05:33 Plt Count Comment Adequate (ADEQUATE) 02/08/24 05:33 MPV 7.4 fL (7.4-11.0) 02/08/24 05:33 Neut % (Auto) 82.5 % (42.0-75.0) H 02/08/24 05:33 Lymph % (Auto) 12.4 % (21.0-51.0) L 02/08/24 05:33 [place] % (Auto) 4.6 % (0.0-13.0) 02/08/24 05:33 Eos % (Auto) 0.0 % (0.9-2.9) L 02/08/24 05:33 Baso % (Auto) 0.5 % (0.2-1.0) 02/08/24 05:33 Neut # (Auto) 10.9 x10^3/uL (2.2-4.8) H 02/08/24 05:33 Lymph # (Auto) 1.6 X10^3/uL (1.3-2.9) 02/08/24 05:33 [place] # (Auto) 0.6 x10^3/uL (0.3-0.8) 02/08/24 05:33 Eos # (Auto) 0.0 x10^3/uL (0.0-0.2) 02/08/24 05:33 Baso # (Auto) 0.1 X10^3/uL (0.0-0.1) 02/08/24 05:33 Absolute Nucleated RBC 0.1 /100WBC 02/08/24 05:33 Total Counted 100 02/06/24 04:41 Neutrophils % (Manual) 93 % (39-76) H 02/06/24 04:41 Band Neutrophils % 2 % (0-10) 02/06/24 04:41 Lymphocytes % (Manual) 4 % (13-43) L 02/06/24 04:41 Eosinophils % (Manual) 1 % (0-6) 02/06/24 04:41 Plt Clumps, EDTA Few 02/08/24 05:33 Plt Morphology Comment Normal (NORMAL) 02/08/24 05:33 RBC Morphology Normal (NORMAL) 02/08/24 05:33 Sample Site Rrad 02/05/24 14:10 ABG pH 7.560 (7.35-7.45) H* 02/05/24 14:10 ABG pCO2 39.0 mmHg (35.0-45.0) 02/05/24 14:10 ABG pO2 109.0 mmHg (80.0-100.0) H 02/05/24 14:10 ABG HCO3 34.9 mmol/L (22-26) H* 02/05/24 14:10 ABG O2 Saturation 99.0 % (90-100) 02/05/24 14:10 ABG Base Excess 11.7 mmol/L (-2.0-2.0) H 02/05/24 14:10 Naveen Test Pos 02/05/24 14:10 A-a Gradient 277.0 mmHg 02/05/24 14:10 FiO2 61.0 02/05/24 14:10 Blood Gas Comments Pt brijesh well. kg/eb 02/05/24 14:10 Sodium 140 mmol/L (136-145) 02/08/24 05:33 Corrected Sodium 141 mmol/L (136-145) 02/08/24 05:33 Potassium 4.0 mmol/L (3.5-5.1) 02/08/24 05:33 Chloride 103 mmol/L (98-107) 02/08/24 05:33 Carbon Dioxide 30.0 mmol/L (21-32) 02/08/24 05:33 BUN 15 mg/dL (7-18) 02/08/24 05:33 Creatinine 0.56 mg/dL (0.55-1.02) 02/08/24 05:33 Est GFR (MDRD) Af Amer > 60 (>60) 02/08/24 05:33 Est GFR (MDRD) Non-Af > 60 (>60) 02/08/24 05:33 Glucose 124 mg/dL (65-99) H 02/08/24 05:33 Lactic Acid 1.3 mmol/L (0.4-2.0) 02/05/24 13:15 Calcium 8.5 mg/dL (8.5-10.1) 02/08/24 05:33 Corrected Calcium 9.6 mg/dL (8.5-10.1) 02/08/24 05:33 Magnesium 2.2 mg/dL (2.0-2.9) 02/07/24 06:17 Total Bilirubin 0.30 mg/dL (0.2-1.0) 02/08/24 05:33 AST 24 Units/L (15-37) 02/08/24 05:33 ALT 58 Units/L (12-78) 02/08/24 05:33 Alkaline Phosphatase 59 Units/L (46-116) 02/08/24 05:33 Troponin I High Sens < 4.0 ng/L (4.0-60.0) L 02/06/24 04:41 Total Protein 6.4 g/dL (6.4-8.2) 02/08/24 05:33 Albumin 2.6 g/dL (3.4-5.0) L 02/08/24 05:33 Globulin 3.8 g/dL (2.5-4.5) 02/08/24 05:33 Albumin/Globulin Ratio 0.7 Ratio (1.1-2.1) L 02/08/24 05:33 Triglycerides 120 mg/dL (0-150) 02/08/24 05:33 Cholesterol 243 mg/dL (0-200) H 02/08/24 05:33 LDL Cholesterol, Calc 138 mg/dL (0-100) H 02/08/24 05:33 HDL Cholesterol 81 mg/dL (40-60) H 02/08/24 05:33 Cholesterol/HDL Ratio 3.0 (0.0-5.0) 02/08/24 05:33 SARS-CoV-2 (PCR) Negative (NEGATIVE) 02/05/24 13:19 Influenza Type A (PCR) Negative (NEGATIVE) 02/05/24 13:19 Influenza Type B (PCR) Negative (NEGATIVE) 02/05/24 13:19 RSV (PCR) Negative (NEGATIVE) 02/05/24 13:19 Resp Viral Panel (PCR) See scanned report 02/05/24 17:07 Plan (1) Acute exacerbation of chronic obstructive pulmonary disease: Status: Acute (2) Pneumonia: Status: Acute Qualifiers: Laterality: right Lung location: lower lobe of lung Pneumonia type: due to unspecified organism Qualified Code(s): J18.9 - Pneumonia, unspecified organism (3) Acute and chronic respiratory failure: Status: Acute Qualifiers: Respiratory failure complication: hypoxia Qualified Code(s): J96.21 - Acute and chronic respiratory failure with hypoxia (4) Emphysema, unspecified: Status: Chronic Qualifiers: Emphysema type: unspecified Qualified Code(s): J43.9 - Emphysema, unspecified (5) CAD (coronary artery disease): Status: Acute Qualifiers: Associated angina: without angina Coronary Disease-Associated Artery/Lesion type: unspecified vessel or lesion type [place] vs. transplanted heart: [place] heart Qualified Code(s): I25.10 - Atherosclerotic heart disease of [place] coronary artery without angina pectoris (6) Hypertension: Status: Chronic Qualifiers: Hypertension type: essential hypertension Qualified Code(s): I10 - Essential (primary) hypertension (7) HLD (hyperlipidemia): Status: Acute Qualifiers: Hyperlipidemia type: mixed hyperlipidemia Qualified Code(s): E78.2 - Mixed hyperlipidemia
[2024-02-08] MEDS ORDERED: STERILE WATER IRRIGATION IR ONE (20:19)
[2024-02-09 06:18] LABS: ALANINE AMINOTRANSFERASE 69 Units/L (12-78); ALBUMIN 2.8 g/dL (3.4-5.0); ALKALINE PHOSPHATASE 60 Units/L (46-116); ASPARTATE AMINO TRANSFERASE 22 Units/L (15-37); BASOPHILS % (AUTO) 0.1 % (0.2-1.0); BLOOD UREA NITROGEN 13 mg/dL (7-18); CALCIUM 8.5 mg/dL (8.5-10.1); CARBON DIOXIDE 33.3 mmol/L (21-32); CHLORIDE 102 mmol/L (98-107); COR CA(FOR HYPOALB) 9.5 mg/dL (8.5-10.1); COR NA(FOR HYPERGLY) 144 mmol/L (136-145); CREATININE 0.63 mg/dL (0.55-1.02); EOSINOPHILS % (AUTO) 0.1 % (0.9-2.9); GLUCOSE 123 mg/dL (65-99); HEMATOCRIT 33.1 % (36.0-47.0); LYMPHOCYTES # (AUTO) 1.7 X10^3/uL (1.3-2.9); LYMPHOCYTES % (AUTO) 13.4 % (21.0-51.0); MEAN CORPUSCULAR HEMOGLOBIN 31.2 pg (27.0-34.0); MEAN CORPUSCULAR HGB CONC 33.2 g/dL (33.0-35.0); MEAN CORPUSCULAR VOLUME 93.7 fL (80.0-100.0); MEAN PLATELET VOLUME 6.9 fL (7.4-11.0); MONOCYTES # (AUTO) 0.9 x10^3/uL (0.3-0.8); MONOCYTES % (AUTO) 7.2 % (0.0-13.0); NEUTROPHILS # (AUTO) 10.3 x10^3/uL (2.2-4.8); NEUTROPHILS % (AUTO) 79.2 % (42.0-75.0); PLATELET COUNT 363 X10^3/uL (150.0-450.0); POTASSIUM 3.9 mmol/L (3.5-5.1); RED BLOOD COUNT 3.53 X10^6/uL (3.5-5.4); RED CELL DISTRIBUTION WIDTH 13.7 % (11.6-16.5); SODIUM 143 mmol/L (136-145); TOTAL PROTEIN 6.7 g/dL (6.4-8.2); eGFR NON BLACK RACES > 60 (>60)
[2024-02-09 06:48] LABS: BAND NEUTROPHILS % 1 % (0-10)
[2024-02-09 06:49] LABS: PLATELET MORPHOLOGY COMMENT NORMAL (NORMAL)
[2024-02-09] MEDS: ZOLOFT ONE (09:05)
[2024-02-09] MEDS: BACTRIM DS TAB PO SCH (10:26)
[2024-02-09] MEDS ORDERED: CATAPRES TAB 0.1 MG ONE (12:36)
[2024-02-09] MEDS: CATAPRES TAB 0.1 MG PO PRN (12:41)
[2024-02-10 06:13] LABS: BASOPHILS % (AUTO) 0.2 % (0.2-1.0); EOSINOPHILS % (AUTO) 0.1 % (0.9-2.9); HEMATOCRIT 32.8 % (36.0-47.0); LYMPHOCYTES # (AUTO) 1.9 X10^3/uL (1.3-2.9); LYMPHOCYTES % (AUTO) 13.1 % (21.0-51.0); MEAN CORPUSCULAR HEMOGLOBIN 31.3 pg (27.0-34.0); MEAN CORPUSCULAR HGB CONC 33.7 g/dL (33.0-35.0); MEAN PLATELET VOLUME 6.8 fL (7.4-11.0); MONOCYTES % (AUTO) 6.6 % (0.0-13.0); NEUTROPHILS # (AUTO) 11.8 x10^3/uL (2.2-4.8); PLATELET COUNT 357 X10^3/uL (150.0-450.0); RED BLOOD COUNT 3.53 X10^6/uL (3.5-5.4); RED CELL DISTRIBUTION WIDTH 14.1 % (11.6-16.5); WHITE BLOOD COUNT 14.7 X10^3/uL (3.6-10.0)
[2024-02-10 06:29] LABS: ALANINE AMINOTRANSFERASE 68 Units/L (12-78); ALBUMIN 2.8 g/dL (3.4-5.0); ALKALINE PHOSPHATASE 55 Units/L (46-116); ASPARTATE AMINO TRANSFERASE 17 Units/L (15-37); BLOOD UREA NITROGEN 15 mg/dL (7-18); CALCIUM 8.9 mg/dL (8.5-10.1); CARBON DIOXIDE 32.5 mmol/L (21-32); CHLORIDE 100 mmol/L (98-107); COR CA(FOR HYPOALB) 9.9 mg/dL (8.5-10.1); COR NA(FOR HYPERGLY) 140 mmol/L (136-145); CREATININE 0.74 mg/dL (0.55-1.02); GLUCOSE 111 mg/dL (65-99); POTASSIUM 3.9 mmol/L (3.5-5.1); SODIUM 140 mmol/L (136-145); TOTAL PROTEIN 6.3 g/dL (6.4-8.2); eGFR NON BLACK RACES > 60 (>60)
--- NOTE | 2024-02-10 06:30 | PCM.PROG ---
Progress Note Progress Note for Day of Date of Exam: 02/09/24 Subjective Subjective: Patient is a 63 year old female admitted for COPD exacerbation and pneumonia. This morning she does report feeling better. States that her breathing has improved. She is currently on 4 L nasal cannula. She did work with physical therapy and was able to ambulate in the hallway. No acute events overnight. Patient has been on IV antibiotics, steroids and bronchodilators. Labs/imaging reviewed: -WBC 13, Hgb 11, Plt 363, Na 143, K:3.9, Creatinine 0.63, Glucose 123 -AIT panel: negative -Sputum culture: STENOTROPHOMONAS MALTOPHILIA Plan: Wean O2 as tolerated, continue IV antibiotics and steroids. Will add bactrim based on sensitivity of sputum culture. Add clonidine 0.1mg prn for blood pressure. Continue nebs and pulmicort. PT/OT as tolerated. Continue home medications. Replace K as per protocol. Continue to closely monitor and follow up AM labs/imaging. service center manager to check with oxygen company regarding home oxygen supplies. Past Medical Family Social History Allergies: Allergies No Known Allergies [NKA] Allergy (Verified 01/22/22 14:42) Review of Systems ROS changes noted: see HPI Vital Signs and I&O's Vital Signs: Vital Signs Temperature 98.0 F Temperature 97.7 F Pulse Rate [Brachial] 92 Pulse Rate [Brachial] 94 Respiratory Rate 22 Respiratory Rate 21 Blood Pressure [Right Arm] 155/80 Blood Pressure [Right Arm] 165/78 Blood Pressure [Right Arm] 158/79 O2 Sat by Pulse Oximetry 97 O2 Sat by Pulse Oximetry 97 Intake and Output: Intake & Output 02/07/24 02/08/24 02/09/24 02/10/24 23:59 23:59 23:59 23:59 Intake Total 3414 / 3414 3211 / 3211 2099 Balance 3414 / 3414 3211 / 3211 2099 Physical Exam Oriented: Normal Eyes: Normal Nose: Normal Throat: Normal Respiratory: Diminished Cardiovascular: Normal Auscultation: Bowel Sounds: Normal Tenderness: Normal Skin: Normal Musculoskeletal: Normal Psychiatric: Normal Mood Description: Calm Affect: Normal Speech Pattern: Clear and Appropriate Laboratory and Diagnostics 02/10/24 05:40 02/09/24 05:45 Labs: 02/07/24 12:59 Sputum - Expectorated Sputum Sputum Culture - Final Stenotrophomonas Maltophilia 02/07/24 12:59 Sputum - Expectorated Sputum - Final 02/05/24 13:30 Blood Blood Culture - Preliminary 02/05/24 13:25 Blood Blood Culture - Final Laboratory WBC 14.7 X10^3/uL (3.6-10.0) H 02/10/24 05:40 RBC 3.53 X10^6/uL (3.5-5.4) 02/10/24 05:40 Hgb 11.0 g/dL (12.0-16.0) L 02/10/24 05:40 Hct 32.8 % (36.0-47.0) L 02/10/24 05:40 MCV 93.0 fL (80.0-100.0) 02/10/24 05:40 MCH 31.3 pg (27.0-34.0) 02/10/24 05:40 MCHC 33.7 g/dL (33.0-35.0) 02/10/24 05:40 RDW 14.1 % (11.6-16.5) 02/10/24 05:40 Plt Count 357 X10^3/uL (150.0-450.0) 02/10/24 05:40 Plt Count Comment Adequate (ADEQUATE) 02/09/24 05:45 MPV 6.8 fL (7.4-11.0) L 02/10/24 05:40 Neut % (Auto) 80.0 % (42.0-75.0) H 02/10/24 05:40 Lymph % (Auto) 13.1 % (21.0-51.0) L 02/10/24 05:40 [place] % (Auto) 6.6 % (0.0-13.0) 02/10/24 05:40 Eos % (Auto) 0.1 % (0.9-2.9) L 02/10/24 05:40 Baso % (Auto) 0.2 % (0.2-1.0) 02/10/24 05:40 Neut # (Auto) 11.8 x10^3/uL (2.2-4.8) H 02/10/24 05:40 Lymph # (Auto) 1.9 X10^3/uL (1.3-2.9) 02/10/24 05:40 [place] # (Auto) 1.0 x10^3/uL (0.3-0.8) H 02/10/24 05:40 Eos # (Auto) 0.0 x10^3/uL (0.0-0.2) 02/10/24 05:40 Baso # (Auto) 0.0 X10^3/uL (0.0-0.1) 02/10/24 05:40 Absolute Nucleated RBC 0.1 /100WBC 02/10/24 05:40 Total Counted 100 02/09/24 05:45 Neutrophils % (Manual) 75 % (39-76) 02/09/24 05:45 Band Neutrophils % 1 % (0-10) 02/09/24 05:45 Lymphocytes % (Manual) 21 % (13-43) 02/09/24 05:45 Monocytes % (Manual) 3 % (4-9) L 02/09/24 05:45 Eosinophils % (Manual) 1 % (0-6) 02/06/24 04:41 Plt Clumps, EDTA Few 02/08/24 05:33 Plt Morphology Comment Normal (NORMAL) 02/09/24 05:45 RBC Morphology Normal (NORMAL) 02/09/24 05:45 Sample Site Rrad 02/05/24 14:10 ABG pH 7.560 (7.35-7.45) H* 02/05/24 14:10 ABG pCO2 39.0 mmHg (35.0-45.0) 02/05/24 14:10 ABG pO2 109.0 mmHg (80.0-100.0) H 02/05/24 14:10 ABG HCO3 34.9 mmol/L (22-26) H* 02/05/24 14:10 ABG O2 Saturation 99.0 % (90-100) 02/05/24 14:10 ABG Base Excess 11.7 mmol/L (-2.0-2.0) H 02/05/24 14:10 Naveen Test Pos 02/05/24 14:10 A-a Gradient 277.0 mmHg 02/05/24 14:10 FiO2 61.0 02/05/24 14:10 Blood Gas Comments Pt brijesh well. kg/eb 02/05/24 14:10 Sodium 143 mmol/L (136-145) 02/09/24 05:45 Corrected Sodium 144 mmol/L (136-145) 02/09/24 05:45 Potassium 3.9 mmol/L (3.5-5.1) 02/09/24 05:45 Chloride 102 mmol/L (98-107) 02/09/24 05:45 Carbon Dioxide 33.3 mmol/L (21-32) H 02/09/24 05:45 BUN 13 mg/dL (7-18) 02/09/24 05:45 Creatinine 0.63 mg/dL (0.55-1.02) 02/09/24 05:45 Est GFR (MDRD) Af Amer > 60 (>60) 02/09/24 05:45 Est GFR (MDRD) Non-Af > 60 (>60) 02/09/24 05:45 Glucose 123 mg/dL (65-99) H 02/09/24 05:45 Lactic Acid 1.3 mmol/L (0.4-2.0) 02/05/24 13:15 Calcium 8.5 mg/dL (8.5-10.1) 02/09/24 05:45 Corrected Calcium 9.5 mg/dL (8.5-10.1) 02/09/24 05:45 Magnesium 2.2 mg/dL (2.0-2.9) 02/07/24 06:17 Total Bilirubin 0.30 mg/dL (0.2-1.0) 02/09/24 05:45 AST 22 Units/L (15-37) 02/09/24 05:45 ALT 69 Units/L (12-78) 02/09/24 05:45 Alkaline Phosphatase 60 Units/L (46-116) 02/09/24 05:45 Troponin I High Sens < 4.0 ng/L (4.0-60.0) L 02/06/24 04:41 Total Protein 6.7 g/dL (6.4-8.2) 02/09/24 05:45 Albumin 2.8 g/dL (3.4-5.0) L 02/09/24 05:45 Globulin 3.9 g/dL (2.5-4.5) 02/09/24 05:45 Albumin/Globulin Ratio 0.7 Ratio (1.1-2.1) L 02/09/24 05:45 Triglycerides 120 mg/dL (0-150) 02/08/24 05:33 Cholesterol 243 mg/dL (0-200) H 02/08/24 05:33 LDL Cholesterol, Calc 138 mg/dL (0-100) H 02/08/24 05:33 HDL Cholesterol 81 mg/dL (40-60) H 02/08/24 05:33 Cholesterol/HDL Ratio 3.0 (0.0-5.0) 02/08/24 05:33 SARS-CoV-2 (PCR) Negative (NEGATIVE) 02/05/24 13:19 Influenza Type A (PCR) Negative (NEGATIVE) 02/05/24 13:19 Influenza Type B (PCR) Negative (NEGATIVE) 02/05/24 13:19 RSV (PCR) Negative (NEGATIVE) 02/05/24 13:19 Resp Viral Panel (PCR) See scanned report 02/05/24 17:07 Plan (1) Acute exacerbation of chronic obstructive pulmonary disease: Status: Acute (2) Pneumonia: Status: Acute Qualifiers: Pneumonia type: due to unspecified organism Laterality: right Lung location: lower lobe of lung Qualified Code(s): J18.9 - Pneumonia, unspecified organism (3) Acute and chronic respiratory failure: Status: Acute Qualifiers: Respiratory failure complication: hypoxia Qualified Code(s): J96.21 - Acute and chronic respiratory failure with hypoxia (4) Emphysema, unspecified: Status: Chronic Qualifiers: Emphysema type: unspecified Qualified Code(s): J43.9 - Emphysema, unspecified (5) CAD (coronary artery disease): Status: Acute Qualifiers: Coronary Disease-Associated Artery/Lesion type: unspecified vessel or lesion type [place] vs. transplanted heart: [place] heart Associated angina: without angina Qualified Code(s): I25.10 - Atherosclerotic heart disease of [place] coronary artery without angina pectoris (6) Hypertension: Status: Chronic Qualifiers: Hypertension type: essential hypertension Qualified Code(s): I10 - Essential (primary) hypertension (7) HLD (hyperlipidemia): Status: Acute Qualifiers: Hyperlipidemia type: mixed hyperlipidemia Qualified Code(s): E78.2 - M ixed hyperlipidemia
[2024-02-10 06:38] LABS: BAND NEUTROPHILS % 1 % (0-10); PLATELET MORPHOLOGY COMMENT NORMAL (NORMAL)
[2024-02-10] MEDS ORDERED: ZOLOFT ONE (09:08)
[2024-02-10] MEDS: ROCEPHIN VIAL 1 GRAM IM ONE (12:30)
[2024-02-10] MEDS: XYLOCAINE 1 % (PLAIN) IM ONE (12:30)
[2024-02-10 12:39] VITALS: BP 172/91; PULSE 95; RESP 18; TEMP 97.2; O2SAT 93
== END 2024-02-10 12:30 | disposition home health service (06) | DRG 190 ==
LOC: ER 12:42 → MED/SURG 16:03
PROVIDERS: ADMIT Family Medicine; ATTEND Internal Medicine
DX: I25.10 Atherosclerotic heart disease of native coronary artery without angina pectoris; B96.5 Pseudomonas (aeruginosa) (mallei) (pseudomallei) as the cause of diseases classified elsewhere; R26.89 Other abnormalities of gait and mobility; K21.9 Gastro-esophageal reflux disease without esophagitis; E03.8 Other specified hypothyroidism; R53.1 Weakness; R00.0 Tachycardia, unspecified; J44.1 Chronic obstructive pulmonary disease with (acute) exacerbation; J43.8 Other emphysema; I10 Essential (primary) hypertension; E78.2 Mixed hyperlipidemia; J18.8 Other pneumonia, unspecified organism; Z20.822 Contact with and (suspected) exposure to COVID-19; Z99.81 Dependence on supplemental oxygen; J96.21 Acute and chronic respiratory failure with hypoxia